=== PATIENT | female | born 1945 | race Caucasian/White ===

== ENCOUNTER → 2017-06-12 11:21 | Outpatient (CLI) | payer MEDICARE, BC, SELFPAY ==
[2017-06-12 12:25] LABS: Absolute Lymphocyte Count 1.29 X10^3/ul (0.83-4.51); Basophil# 0.02 X10^3/uL; Basophil% 0.4 % (0-1); Eosinophil# 0.04 X10^3/uL; Eosinophils% 0.9 % (0-5); Hemoglobin 13.5 g/dl (12.0-15.0); Lymphocyte # 1.29 X10^3/ul (4.0); Lymphocyte % 27.6 % (19-41); Mean Corp Hgb Conc 32.1 g/gl (32-36); Mean Corpuscular Hgb 30.1 pg (27.0-32.0); Mean Corpuscular Volume 93.8 fL (81-99); Mean Platelet Vol. 10.3 fl (6.2-12.0); Monocyte# 0.37 X10^3/uL; Monocyte% 7.9 % (0-10); Neutrophil # 2.96 X10^3/uL (2.7-7.7); Neutrophil % 63.2 % (47-70); Platelet Count 294 K/mm3 (150-450); RBC Distribution Width CV 12.7 % (11.6-14.6); Red Blood Count 4.48 M/mm3 (4.2-5.4); White Blood Count 4.7 K/mm3 (4.4-11.0)
[2017-06-12 12:34] LABS: POSITIVE COUNT NO; POSITIVE DIFFERENTIAL NO; POSITIVE MORPHOLOGY NO
[2017-06-12 13:18] LABS: Anion Gap 7 (5-15); BUN 17 mg/dL (7-18); BUN/Creat Ratio 15.9 RATIO (10-20); Calcium,Total 9.1 mg/dL (8.5-10.1); Chloride 107 mmol/L (98-107); Creatinine, Serum 1.07 mg/dL (0.55-1.02); EST Glomerular Filtration Rate 53 mL/min (>60); Est Glom Filt Rate - Afr Amer 64 mL/min (>60); Glucose 95 mg/dL (74-106); Potassium 4.3 mmol/L (3.5-5.1); Sodium Level 141 mmol/L (136-145)
== END ==
PROVIDERS: Visit Provider Internal Medicine Cardiovascular Disease
DX: I25.10 Atherosclerotic heart disease of native coronary artery without angina pectoris (principal); I10 Essential (primary) hypertension
CPT/HCPCS: 36415; 80048; 84443; 85025

== ENCOUNTER → 2018-06-16 07:54 | Outpatient (CLI) | payer MEDICARE, BC, SELFPAY ==
[2018-06-12 13:01] VITALS: BMI 28.8
[2018-06-16 08:23] LABS: Absolute Lymphocyte Count 1.59 X10^3/ul (0.83-4.51); Absolute Neutrophil Count 1.8 X10^3/uL (2.0-7.7); Basophil# 0.02 X10^3/uL; Basophil% 0.5 % (0-1); Eosinophil# 0.11 X10^3/uL; Eosinophils% 2.8 % (0-5); Hematocrit 41.2 % (37-47); Hemoglobin 13.5 g/dl (12.0-15.0); Lymphocyte # 1.59 X10^3/ul (4.0); Lymphocyte % 40.5 % (19-41); Mean Corp Hgb Conc 32.8 g/gl (32-36); Mean Corpuscular Hgb 30.4 pg (27.0-32.0); Mean Corpuscular Volume 92.8 fL (81-99); Mean Platelet Vol. 9.6 fl (6.2-12.0); Monocyte# 0.41 X10^3/uL; Monocyte% 10.4 % (0-10); Neutrophil % 45.8 % (47-70); Platelet Count 277 K/mm3 (150-450); RBC Distribution Width CV 13.1 % (11.6-14.6); RBC Distribution Width SD 43.9 fl (35.1-43.9); Red Blood Count 4.44 M/mm3 (4.2-5.4); White Blood Count 3.9 K/mm3 (4.4-11.0)
[2018-06-16 08:24] LABS: POSITIVE COUNT NO; POSITIVE DIFFERENTIAL NO; POSITIVE MORPHOLOGY NO
[2018-06-16 09:05] LABS: AST(SGOT) 16 U/L (15-37); Alanine Aminotransfer ALT/SGPT 19 U/L (13-56); Albumin, Serum 3.8 g/dL (3.2-5.0); Alkaline Phosphatase 77 U/L (45-117); Anion Gap 5 (5-15); BUN 17 mg/dL (7-18); BUN/Creat Ratio 15.2 RATIO (10-20); Bilirubin, Direct 0.11 mg/dL (0.00-0.30); Calcium,Total 9.1 mg/dL (8.5-10.1); Chloride 108 mmol/L (98-107); Cholesterol 280 mg/dL (200); Creatinine, Serum 1.12 mg/dL (0.55-1.02); EST Glomerular Filtration Rate 50 mL/min (>60); Est Glom Filt Rate - Afr Amer 61 mL/min (>60); Globulin 3.4 g/dL (2.2-4.2); Glucose 102 mg/dL (74-106); High Density Lipoprotein 53 mg/dL; Potassium 4.3 mmol/L (3.5-5.1); Protein, Total 7.2 g/dL (6.4-8.2); Sodium Level 140 mmol/L (136-145); Triglycerides 222 mg/dL; Very Low Density Lipoprotein 44 mg/dL (5-40)
== END ==
PROVIDERS: Referring Provider Physician Assistant Medical; Visit Provider Physician Assistant Medical
DX: I10 Essential (primary) hypertension (principal); I25.10 Atherosclerotic heart disease of native coronary artery without angina pectoris; R53.83 Other fatigue
CPT/HCPCS: 36415; 80048; 80061; 80076; 85025

== ENCOUNTER → 2018-07-13 | Outpatient (CLI) | payer MEDICARE, BC, SELFPAY ==
[2018-06-12 13:01] VITALS: BMI 28.8
--- NOTE | 2018-07-13 06:47 | ECHOD_ITS ---
Reason For Study: SOB Procedure This was a 2D Doppler, Color Flow transthoracic echocardiogram. Exam performed in department. Left Ventricle Normal LV size. The estimated ejection fraction is 50 %. Stage 1 diastolic dysfunction. Mild segmental systolic dysfunction (see wall motion). Infero-Basal: Hypokinetic. Posterior-Basal: Hypokinetic. Mid-Lateral : Hypokinetic. Lateral-Basal: Hypokinetic. Mid-Posterior: Akinetic. Right Ventricle Normal RV size. Normal systolic function. Atria Normal left atrium. Normal right atrium. Mitral Valve Normal mitral valve. Tricuspid Valve Normal tricuspid valve. Aortic Valve Normal aortic valve. Trisinus/trileaflet aortic valve. Trivial aortic valve insufficiency. Pulmonic Valve Normal pulmonic valve. Great Vessels Normal aortic root. The pulmonary artery is normal size. Normal inferior vena cava. Pericardium/Pleural No pericardial effusion. MMode/2D Measurements & Calculations LVIDd: 5.2 cm IVSd: 1.2 cm Ao root diam: 3.1 cm LVIDs: 3.8 cm LVPWd: 1.1 cm RVDd: 2.8 cm FS: 26.6 % LAV(MOD-bp): 46.0 ml LVAd ap4: 29.4 cm2 SV(MOD-sp4): 35.9 ml LAV(MOD-bp) Indexed: 25.9 ml/m2 EDV(MOD-sp4): 101.7 ml LAV(MOD-sp2): 43.0 ml EDV(sp4-el): 106.1 ml LAV(MOD-sp4): 41.5 ml LVAs ap4: 22.1 cm2 ESV(MOD-sp4): 65.8 ml ESV(sp4-el): 67.2 ml EF(MOD-sp4): 35.3 % EF(sp4-el): 36.7 % SV(sp4-el): 39.0 ml LA A4 area: 14.6 cm2 LA dimension(2D): 3.8 cm RA A4 area: 10.2 cm2 Doppler Measurements & Calculations MV E max sivakumar: 61.0 cm/sec Lat Peak E' Sivakumar: 4.2 cm/sec Med Peak E' Sivakumar: 3.2 cm/sec MV A max sivakumar: 130.1 cm/sec E/E' lat: 14.5 E/E' med: 18.9 MV E/A: 0.47 Ao V2 max: 131.2 cm/sec AI max sivakumar: 385.8 cm/sec LV V1 max: 101.6 cm/sec Ao max P.9 mmHg AI max P.6 mmHg LV V1 max P.1 mmHg AI dec slope: 256.5 cm/sec2 AI P1/2t: 440.5 msec PA V2 max: 109.6 cm/sec Interpretation Summary Normal LV size. The estimated ejection fraction is 50 %. Stage 1 diastolic dysfunction. Trivial aortic valve insufficiency. Mild segmental systolic dysfunction (see wall motion). Ordering Physician: Hannah Disla/Mitch Lebron Referring Physician: Sarah Mathew Performed By: Marcella Garcia RDCS
--- NOTE | 2018-07-13 08:48 | STRESSREP ---
Stress Test Report Exercise myocardial perfusion stress test. 73-year-old lady with a history of shortness of breath. Medications: Amlodipine aspirin. Stress protocol: Resting EKG demonstrates normal sinus rhythm with a rate of 67 bpm normal intervals are noted. Poor R wave progression is noted suggestive of a previous anterior wall myocardial infarction. The patient exercised according to regular Luan protocol for total duration of 3 minutes and 30 seconds. The maximum heart rate attained was 125 bpm which was 86% of maximum predicted heart rate the maximum workload was 5.2 metabolic equivalents. At rest there were no ST or T wave changes noted suggest ischemia peak exercise upsloping ST changes were noted with normally the criteria for ischemia. Resting blood pressures 150/72 with a peak blood pressure 168/74. No clinical angina was noted the patient was noted to be markedly fatigued. Myocardial perfusion protocol. 14.1 mCi of technetium 99m sestamibi was injected at rest. The patient exercised according to regular Luan protocol for 3-1/2 minutes at peak exercise 43.9 mCi of technetium 99m sestamibi was injected stress images were obtained stress and rest images were reconstructed in comparing the short axis vertical long horizontal long axis. Gated images were also obtained. Perfusion SPECT analysis. Review of the images demonstrate normal uptake of tracer noted in the septum and anterior wall there is a definite large defect involving the lateral wall on the stress test images. The resting images demonstrate a similar pattern however in the inferior lateral wall of the appears to be improvement on the resting images suggesting some inferolateral ischemia. This is towards the apex. The mid lateral wall however has a fixed defect suggestive of a previous lateral infarct Gated SPECT analysis: The gated ejection fraction is noted to be 55%. Conclusion: Abnormal exercise myocardial perfusion stress test with the following: Poor exercise capacity. Previous mid lateral infarct. Inferolateral and apical lateral ischemia. Preserved ejection fraction.
== END | disposition home or self-care (01) ==
LOC: CVS 06:46
PROVIDERS: Referring Provider Physician Assistant Medical; Visit Provider Physician Assistant Medical
DX: I25.10 Atherosclerotic heart disease of native coronary artery without angina pectoris (principal); I10 Essential (primary) hypertension; R53.83 Other fatigue; R06.09 Other forms of dyspnea
CPT/HCPCS: 78452; 93017; 93306; A9500; A4216

== ENCOUNTER → 2018-07-14 | Outpatient (CLI) | payer MEDICARE, BC, SELFPAY ==
[2018-06-12 13:01] VITALS: BMI 28.8
--- NOTE | 2018-07-14 09:25 | RAD_ITS ---
STUDY: X-RAY CHEST REASON FOR EXAM: Female, 73 years old. Preop heart catheter TECHNIQUE: PA and lateral views of the chest. COMPARISON: 05/29/2016 FINDINGS: Stable mild elevation right hemidiaphragm. Stable horizontal linear changes right base consistent with scarring. There are areas of hyperinflation.. There is no demonstrated pleural abnormality. There are calcifications of the coronary arteries. There are calcified mediastinal lymph nodes. Normal visualized pulmonary arteries. Normal visualized x-ray aortic arch and descending thoracic aorta. There is demineralization of the osseous structures. Normal visualized ribs, clavicles, and shoulders. There is a stable 1 cm round calcification close to the splenic hilum possibly calcified splenic artery aneurysm. RAD/Chest PA and Lateral IMPRESSION: Scarring in the right base, presumed previous chondromatous exposure, areas of hyperinflation, arteriosclerosis, osteopenia without change. No pulmonary edema, congestive heart failure or confluent pneumonia. 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 This is a stable finding. Electronically Signed: Jessica Francisco MD at 5:49 EDT , Service support ,
[2018-07-14 10:20] LABS: Absolute Lymphocyte Count 1.65 X10^3/ul (0.83-4.51); Absolute Neutrophil Count 2.6 X10^3/uL (2.0-7.7); Basophil# 0.01 X10^3/uL; Basophil% 0.2 % (0-1); Eosinophil# 0.08 X10^3/uL; Eosinophils% 1.7 % (0-5); Hematocrit 40.7 % (37-47); Hemoglobin 13.2 g/dl (12.0-15.0); Lymphocyte # 1.65 X10^3/ul (4.0); Lymphocyte % 34.8 % (19-41); Mean Corp Hgb Conc 32.4 g/gl (32-36); Mean Corpuscular Hgb 29.8 pg (27.0-32.0); Mean Corpuscular Volume 91.9 fL (81-99); Mean Platelet Vol. 10.8 fl (6.2-12.0); Monocyte# 0.44 X10^3/uL; Monocyte% 9.3 % (0-10); Neutrophil # 2.56 X10^3/uL (2.7-7.7); Platelet Count 280 K/mm3 (150-450); RBC Distribution Width CV 12.9 % (11.6-14.6); RBC Distribution Width SD 42.8 fl (35.1-43.9); Red Blood Count 4.43 M/mm3 (4.2-5.4); White Blood Count 4.7 K/mm3 (4.4-11.0)
[2018-07-14 10:25] LABS: POSITIVE COUNT NO; POSITIVE DIFFERENTIAL NO; POSITIVE MORPHOLOGY NO
[2018-07-14 11:13] LABS: Anion Gap 8 (5-15); BUN 18 mg/dL (7-18); BUN/Creat Ratio 17.8 RATIO (10-20); Chloride 109 mmol/L (98-107); Creatinine, Serum 1.01 mg/dL (0.55-1.02); EST Glomerular Filtration Rate 57 mL/min (>60); Est Glom Filt Rate - Afr Amer 69 mL/min (>60); Glucose 99 mg/dL (74-106); Sodium Level 139 mmol/L (136-145)
== END | disposition home or self-care (01) ==
LOC: LAB 09:14
PROVIDERS: Referring Provider Internal Medicine Cardiovascular Disease; Visit Provider Internal Medicine Cardiovascular Disease
DX: I25.10 Atherosclerotic heart disease of native coronary artery without angina pectoris (principal); I11.9 Hypertensive heart disease without heart failure; R94.39 Abnormal result of other cardiovascular function study
CPT/HCPCS: 36415; 71046; 80048; 85025

== ENCOUNTER 2018-07-20 06:47 | Day surgery (SDC) | payer MEDICARE, BC, SELFPAY ==
[2018-06-12 13:01] VITALS: BMI 28.8
[2018-07-17 11:10] VITALS: BMI 28.8
--- NOTE | 2018-07-18 12:43 | PCM.HP.STD ---
Problem List (1) Abnormal nuclear stress test Status: Acute (2) Essential (primary) hypertension Status: Chronic (3) Atherosclerotic heart disease of [place] coronary artery without angina pectoris Status: Chronic Qualifiers: History of Present Illness Date of Admission: 07/20/18 LETITIA LIGHT, is a 73 F who presents today for a heart cath for an abnormal stress test. While in the office a few weeks ago she had complained of increase in fatigue. It is difficult for her to say of this is work. She finds that her legs get fatigued and she needs to stop with activity. She sts that her sister had the same symptoms on needed a stent. She feels that this has worsened since she was here last. She does not have any chest discomfort/heaviness/tightness. She does not have any worsening symptoms of shortness of breath. She does not have any orthopnea. She denies PND. She does not have any symptoms of congestive heart failure. She does not have any palpitations that she is aware of. She does not have any lightheadedness or dizziness. She does not have any near-syncope or syncope. She does not have any lower extremity edema. She does not have any symptoms of claudication. She has a history of mild to moderate coronary artery disease and hypertension. She has been intolerant to statins in the past. Allergies atorvastatin [From Lipitor] Allergy (Verified 06/12/18 13:01) Unknown rosuvastatin [From Crestor] Allergy (Verified 06/12/18 13:01) Unknown Medications amlodipine 5 mg tablet 5 mg PO QDAY #90 tab 06/12/18 [Rx Confirmed 06/12/18] aspirin 81 mg tablet,delayed release 81 mg PO DAILY 06/12/18 [History Confirmed 06/12/18] [facility] Medical History Atherosclerotic heart disease of [place] coronary artery without angina pectoris (Chronic) Left ventricular systolic dysfunction, chronic (Chronic) Hypertension (Chronic) Fatigue (Acute) History of hysterectomy (Chronic) Surgical History removal of renal calculi (Chronic) Family History Father CAD (coronary artery disease) Cancer Mother Myocardial infarction CAD (coronary artery disease) Brother Myocardial infarction CAD (coronary artery disease) Social History Smoking Status: Never smoker alcohol intake: never substance use type: does not use caffeine: No what type of physical activity do you participate in: walking frequency: daily duration: < 15 minutes/day seatbelt use: always do you feel safe at home: Yes ROS Const Const: Negative for fatigue, weakness, fever(s) or headache(s) Eyes Eyes: Negative for blind spots, loss of peripheral vision or transient loss of vision ENT ENT: Negative for headache(s), dizziness, tinnitus or Nosebleed/epistaxis Cardio Chest Pain: No Palpitations: No Edema: None Muscle aches with walking: None Resp Respiratory: Negative for SOB with activity, SOB at rest, SOB orthopnea\SOB lying down or Cough GI GI: Negative nausea, vomiting, heartburn or vomiting blood/hematemesis : Negative for hematuria Musc Musc: Negative for muscle aches/ myalgia Neuro Neuro: Negative for dizziness, lightheadedness, near syncope, syncope, orthostatic symptoms, headache(s) or weakness Jose Hematologic/Lymphatic: Negative for easy bleeding Endo Endo: Negative for fatigue Cardiology Exam Const Appearance: cooperative, no acute distress and well developed Orientation: alert, awake and oriented x3 Head Head: normocephalic and atraumatic Mouth: moist mucous membranes Eyes General: appearance normal, both eyes and all related structures Conjunctivae: conjunctivae normal Pupils: PERRL EOM: EOM intact bilaterally Neck Neck: normal visual inspection, no lymphadenopathy and no JVD Carotids: Negative bruit Neck Mass: Negative Neck mass Chest Chest inspection: normal inspection of the chest and symmetric chest movement Auscultation: Bilateral: Clear to Auscultation Cardio Palpation: normal PMI Rate: regular rate Rhythm: regular rhythm Heart sounds: S1 normal and S2 normal; negative rub, gallop or murmur Murmur: Grade 1/6, soft and mid systolic GI GI: normal to inspection, soft, no hepatosplenomegaly and bowel sounds present; negative tender Neuro General: alert, awake, oriented x3, CN's II-XI intact bilaterally and moves all extremities Extremities Pulses: Normal: Right Posterior Tibial Pulse, Left Posterior Tibial Pulse, Right Radial Pulse, Left Radial Pulse Lower Extremity Edema: None: Bilateral Psych Psychological: normal affect Assessment & Plan 1. Atherosclerosis of [place] coronary artery of [place] heart without angina pectoris I25.10 Stress test demonstrated: Abnormal exercise myocardial perfusion test, Poor exercise capacity. Previous mid lateral infarct.Inferolateral and apical lateral ischemia. Preserved ejection fraction. Will proceed with a diagnostic heart cath. Follow up will be based on findings. 2. Essential hypertension I10 Blood pressure is adequately controlled on current medications. Will not make any adjustments. ] Past Medical History Past Medical History (Chronic Problems): Chronic Problems (Last Updated 07/13/18 @ 14:39 by Nichol Fierro) Essential (primary) hypertension (Chronic) Atherosclerotic heart disease of [place] coronary artery without angina pectoris (Chronic) Medical History: Medical History (Last Updated 07/13/18 @ 14:39 by Nichol Fierro) Essential (primary) hypertension (Chronic) I10 Atherosclerotic heart disease of [place] coronary artery without angina pectoris (Chronic) I25.10 Fatigue R53.83 History of hysterectomy Z90.710 Left ventricular systolic dysfunction, chronic (Inactive) I51.9 Allergies atorvastatin [From Lipitor] Allergy (Verified 07/17/18 11:11) Unknown rosuvastatin [From Crestor] Allergy (Verified 07/17/18 11:11) Unknown Home Medications: Ambulatory Orders Medication Instructions Recorded amlodipine 5 mg tablet 5 mg PO QDAY #90 tab 06/12/18 aspirin 81 mg tablet,delayed 81 mg PO DAILY 06/12/18 release clopidogrel 75 mg tablet 75 mg PO DAILY #30 tab 07/14/18 Surgical History: Surgical History (Last Updated 07/13/18 @ 14:39 by Nichol Fierro) removal of renal calculi History of left heart catheterization Onset Date: 05/31/16 Z98.890 Smoking Status: Never smoker - Physical Exam Weight: 163 lb Body Mass Index (BMI) 28.8 Assessment/Plan All Active Problems (Last Updated 07/13/18 @ 14:39 by Nichol Fierro) Abnormal nuclear stress test (Acute)
--- NOTE | 2018-07-18 12:49 | HP.PCM_ITS ---
Problem List (1) Abnormal nuclear stress test Status: Acute (2) Essential (primary) hypertension Status: Chronic (3) Atherosclerotic heart disease of [place] coronary artery without angina pectoris Status: Chronic Qualifiers: History of Present Illness Date of Admission: 07/20/18 LETITIA LIGHT, is a 73 F who presents today for a heart cath for an abnormal stress test. While in the office a few weeks ago she had complained of increase in fatigue. It is difficult for her to say of this is work. She finds that her legs get fatigued and she needs to stop with activity. She sts that her sister had the same symptoms on needed a stent. She feels that this has worsened since she was here last. She does not have any chest discomfort/heaviness/tightness. She does not have any worsening symptoms of shortness of breath. She does not have any orthopnea. She denies PND. She does not have any symptoms of congestive heart failure. She does not have any palpitations that she is aware of. She does not have any lightheadedness or dizziness. She does not have any near-syncope or syncope. She does not have any lower extremity edema. She does not have any symptoms of claudication. She has a history of mild to moderate coronary artery disease and hypertension. She has been intolerant to statins in the past. Allergies atorvastatin [From Lipitor] Allergy (Verified 06/12/18 13:01) Unknown rosuvastatin [From Crestor] Allergy (Verified 06/12/18 13:01) Unknown Medications amlodipine 5 mg tablet 5 mg PO QDAY #90 tab 06/12/18 [Rx Confirmed 06/12/18] aspirin 81 mg tablet,delayed release 81 mg PO DAILY 06/12/18 [History Confirmed 06/12/18] [facility] Medical History Atherosclerotic heart disease of [place] coronary artery without angina pectoris (Chronic) Left ventricular systolic dysfunction, chronic (Chronic) Hypertension (Chronic) Fatigue (Acute) History of hysterectomy (Chronic) Surgical History removal of renal calculi (Chronic) Family History Father CAD (coronary artery disease) Cancer Mother Myocardial infarction CAD (coronary artery disease) Brother Myocardial infarction CAD (coronary artery disease) Social History Smoking Status: Never smoker alcohol intake: never substance use type: does not use caffeine: No what type of physical activity do you participate in: walking frequency: daily duration: < 15 minutes/day seatbelt use: always do you feel safe at home: Yes ROS Const Const: Negative for fatigue, weakness, fever(s) or headache(s) Eyes Eyes: Negative for blind spots, loss of peripheral vision or transient loss of vision ENT ENT: Negative for headache(s), dizziness, tinnitus or Nosebleed/epistaxis Cardio Chest Pain: No Palpitations: No Edema: None Muscle aches with walking: None Resp Respiratory: Negative for SOB with activity, SOB at rest, SOB orthopnea\SOB lying down or Cough GI GI: Negative nausea, vomiting, heartburn or vomiting blood/hematemesis : Negative for hematuria Musc Musc: Negative for muscle aches/ myalgia Neuro Neuro: Negative for dizziness, lightheadedness, near syncope, syncope, orthostatic symptoms, headache(s) or weakness Jose Hematologic/Lymphatic: Negative for easy bleeding Endo Endo: Negative for fatigue Cardiology Exam Const Appearance: cooperative, no acute distress and well developed Orientation: alert, awake and oriented x3 Head Head: normocephalic and atraumatic Mouth: moist mucous membranes Eyes General: appearance normal, both eyes and all related structures Conjunctivae: conjunctivae normal Pupils: PERRL EOM: EOM intact bilaterally Neck Neck: normal visual inspection, no lymphadenopathy and no JVD Carotids: Negative bruit Neck Mass: Negative Neck mass Chest Chest inspection: normal inspection of the chest and symmetric chest movement Auscultation: Bilateral: Clear to Auscultation Cardio Palpation: normal PMI Rate: regular rate Rhythm: regular rhythm Heart sounds: S1 normal and S2 normal; negative rub, gallop or murmur Murmur: Grade 1/6, soft and mid systolic GI GI: normal to inspection, soft, no hepatosplenomegaly and bowel sounds present; negative tender Neuro General: alert, awake, oriented x3, CN's II-XI intact bilaterally and moves all extremities Extremities Pulses: Normal: Right Posterior Tibial Pulse, Left Posterior Tibial Pulse, Right Radial Pulse, Left Radial Pulse Lower Extremity Edema: None: Bilateral Psych Psychological: normal affect Assessment & Plan 1. Atherosclerosis of [place] coronary artery of [place] heart without angina pectoris I25.10 Stress test demonstrated: Abnormal exercise myocardial perfusion test, Poor exer cise capacity. Previous mid lateral infarct.Inferolateral and apical lateral ischemia. Preserved ejection fraction. Will proceed with a diagnostic heart cath. Follow up will be based on findings. 2. Essential hypertension I10 Blood pressure is adequately controlled on current medications. Will not make any adjustments. ] Past Medical History Past Medical History (Chronic Problems): Chronic Problems (Last Updated 07/13/18 @ 14:39 by Nichol Fierro) Essential (primary) hypertension (Chronic) Atherosclerotic heart disease of [place] coronary artery without angina pectoris (Chronic) Medical History: Medical History (Last Updated 07/13/18 @ 14:39 by Nichol Fierro) Essential (primary) hypertension (Chronic) I10 Atherosclerotic heart disease of [place] coronary artery without angina pectoris (Chronic) I25.10 Fatigue R53.83 History of hysterectomy Z90.710 Left ventricular systolic dysfunction, chronic (Inactive) I51.9 Allergies atorvastatin [From Lipitor] Allergy (Verified 07/17/18 11:11) Unknown rosuvastatin [From Crestor] Allergy (Verified 07/17/18 11:11) Unknown Home Medications: Ambulatory Orders Medication Instructions Recorded amlodipine 5 mg tablet 5 mg PO QDAY #90 tab 06/12/18 aspirin 81 mg tablet,delayed 81 mg PO DAILY 06/12/18 release clopidogrel 75 mg tablet 75 mg PO DAILY #30 tab 07/14/18 Surgical History: Surgical History (Last Updated 07/13/18 @ 14:39 by Nichol Fierro) removal of renal calculi History of left heart catheterization Onset Date: 05/31/16 Z98.890 Smoking Status: Never smoker - Physical Exam Weight: 163 lb Body Mass Index (BMI) 28.8 Assessment/Plan All Active Problems (Last Updated 07/13/18 @ 14:39 by Nichol Fierro) Abnormal nuclear stress test (Acute)
[2018-07-20] VITALS (10 sets, daily range): BP systolic 133–151; BP diastolic 60–72; PULSE 61–67; RESP 16–18; TEMP 36.9–37.1; O2SAT 93–97
--- NOTE | 2018-07-20 08:24 | PCM.HP.BLA ---
Problem List (1) Abnormal nuclear stress test Status: Acute (2) Essential (primary) hypertension Status: Chronic (3) Atherosclerotic heart disease of [place] coronary artery without angina pectoris Status: Chronic Qualifiers: History and Physical Date of Admission: 07/20/18 LETITIA LIGHT, is a 73 F who presents to the office today for a heart cath for an abnormal stress test. She has a history of mild to moderate coronary artery disease and hypertension. Stress test was done on 07/13/2018 for fatigue, this demonstrated: Poor exercise capacity. Previous mid lateral infarct. Inferolateral and apical lateral ischemia. Preserved ejection fraction. She has been intolerant to statins in the past. She does complain of feeling fatigue. It is difficult for her to say of this is work. She finds that her legs get fatigued and she needs to stop with activity. She sts that her sister had the same symptoms on needed a stent. She feels that this has worsened since she was here last. She does not have any chest discomfort/heaviness/tightness. She does not have any worsening symptoms of shortness of breath. She does not have any orthopnea. She denies PND. She does not have any symptoms of congestive heart failure. She does not have any palpitations that she is aware of. She does not have any lightheadedness or dizziness. She does not have any near-syncope or syncope. She does not have any lower extremity edema. She does not have any symptoms of claudication. Intake Vital Signs See nursing notes Intake Is patient in pain?: No Allergies atorvastatin [From Lipitor] Allergy (Verified 06/12/18 13:01) Unknown rosuvastatin [From Crestor] Allergy (Verified 06/12/18 13:01) Unknown Medications amlodipine 5 mg tablet 5 mg PO QDAY #90 tab 06/12/18 [Rx Confirmed 06/12/18] aspirin 81 mg tablet,delayed release 81 mg PO DAILY 06/12/18 [History Confirmed 06/12/18] [facility] Medical History Atherosclerotic heart disease of [place] coronary artery without angina pectoris (Chronic) Left ventricular systolic dysfunction, chronic (Chronic) Hypertension (Chronic) Fatigue (Acute) History of hysterectomy (Chronic) Surgical History removal of renal calculi (Chronic) Family History Father CAD (coronary artery disease) Cancer Mother Myocardial infarction CAD (coronary artery disease) Brother Myocardial infarction CAD (coronary artery disease) Social History Smoking Status: Never smoker alcohol intake: never substance use type: does not use caffeine: No what type of physical activity do you participate in: walking frequency: daily duration: < 15 minutes/day seatbelt use: always do you feel safe at home: Yes ROS Const Const: Negative for fatigue, weakness, fever(s) or headache(s) Eyes Eyes: Negative for blind spots, loss of peripheral vision or transient loss of vision ENT ENT: Negative for headache(s), dizziness, tinnitus or Nosebleed/epistaxis Cardio Chest Pain: No Palpitations: No Edema: None Muscle aches with walking: None Resp Respiratory: Negative for SOB with activity, SOB at rest, SOB orthopnea\SOB lying down or Cough GI GI: Negative nausea, vomiting, heartburn or vomiting blood/hematemesis : Negative for hematuria Musc Musc: Negative for muscle aches/ myalgia Neuro Neuro: Negative for dizziness, lightheadedness, near syncope, syncope, orthostatic symptoms, headache(s) or weakness Jose Hematologic/Lymphatic: Negative for easy bleeding Endo Endo: Negative for fatigue Cardiology Exam Const Appearance: cooperative, no acute distress and well developed Orientation: alert, awake and oriented x3 Head Head: normocephalic and atraumatic Mouth: moist mucous membranes Eyes General: appearance normal, both eyes and all related structures Conjunctivae: conjunctivae normal Pupils: PERRL EOM: EOM intact bilaterally Neck Neck: normal visual inspection, no lymphadenopathy and no JVD Carotids: Negative bruit Neck Mass: Negative Neck mass Chest Chest inspection: normal inspection of the chest and symmetric chest movement Auscultation: Bilateral: Clear to Auscultation Cardio Palpation: normal PMI Rate: regular rate Rhythm: regular rhythm Heart sounds: S1 normal and S2 normal; negative rub, gallop or murmur Murmur: Grade 1/6, soft and mid systolic GI GI: normal to inspection, soft, no hepatosplenomegaly and bowel sounds present; negative tender Neuro General: alert, awake, oriented x3, CN's II-XI intact bilaterally and moves all extremities Extremities Pulses: Normal: Right Posterior Tibial Pulse, Left Posterior Tibial Pulse, Right Radial Pulse, Left Radial Pulse Lower Extremity Edema: None: Bilateral Psych Psychological: normal affect Assessment & Plan 1. Atherosclerosis of [place] coronary artery of [place] heart without angina pectoris I25.10 Plan - RAJENDRA Loera Pt will proceed with heart cath today. She will continue with risk factor management and medical management. 2. Essential hypertension I10 Plan - RAJENDRA Loera Blood pressure is adequately controlled on current medications. Will not make any adjustments.
--- NOTE | 2018-07-20 08:30 | HP.PCM_ITS ---
Problem List (1) Abnormal nuclear stress test Status: Acute (2) Essential (primary) hypertension Status: Chronic (3) Atherosclerotic heart disease of [place] coronary artery without angina pectoris Status: Chronic Qualifiers: History and Physical Date of Admission: 07/20/18 LETITIA LIGHT, is a 73 F who presents to the office today for a heart cath for an abnormal stress test. She has a history of mild to moderate coronary artery disease and hypertension. Stress test was done on 07/13/2018 for fatigue, this demonstrated: Poor exercise capacity. Previous mid lateral infarct. Inferolateral and apical lateral ischemia. Preserved ejection fraction. She has been intolerant to statins in the past. She does complain of feeling fatigue. It is difficult for her to say of this is work. She finds that her legs get fatigued and she needs to stop with activity. She sts that her sister had the same symptoms on needed a stent. She feels that this has worsened since she was here last. She does not have any chest discomfort/heaviness/tightness. She does not have any worsening symptoms of shortness of breath. She does not have any orthopnea. She denies PND. She does not have any symptoms of congestive heart failure. She does not have any palpitations that she is aware of. She does not have any lightheadedness or dizziness. She does not have any near-syncope or syncope. She does not have any lower extremity edema. She does not have any symptoms of claudication. Intake Vital Signs See nursing notes Intake Is patient in pain?: No Allergies atorvastatin [From Lipitor] Allergy (Verified 06/12/18 13:01) Unknown rosuvastatin [From Crestor] Allergy (Verified 06/12/18 13:01) Unknown Medications amlodipine 5 mg tablet 5 mg PO QDAY #90 tab 06/12/18 [Rx Confirmed 06/12/18] aspirin 81 mg tablet,delayed release 81 mg PO DAILY 06/12/18 [History Confirmed 06/12/18] [facility] Medical History Atherosclerotic heart disease of [place] coronary artery without angina pectoris (Chronic) Left ventricular systolic dysfunction, chronic (Chronic) Hypertension (Chronic) Fatigue (Acute) History of hysterectomy (Chronic) Surgical History removal of renal calculi (Chronic) Family History Father CAD (coronary artery disease) Cancer Mother Myocardial infarction CAD (coronary artery disease) Brother Myocardial infarction CAD (coronary artery disease) Social History Smoking Status: Never smoker alcohol intake: never substance use type: does not use caffeine: No what type of physical activity do you participate in: walking frequency: daily duration: < 15 minutes/day seatbelt use: always do you feel safe at home: Yes ROS Const Const: Negative for fatigue, weakness, fever(s) or headache(s) Eyes Eyes: Negative for blind spots, loss of peripheral vision or transient loss of vision ENT ENT: Negative for headache(s), dizziness, tinnitus or Nosebleed/epistaxis Cardio Chest Pain: No Palpitations: No Edema: None Muscle aches with walking: None Resp Respiratory: Negative for SOB with activity, SOB at rest, SOB orthopnea\SOB lying down or Cough GI GI: Negative nausea, vomiting, heartburn or vomiting blood/hematemesis : Negative for hematuria Musc Musc: Negative for muscle aches/ myalgia Neuro Neuro: Negative for dizziness, lightheadedness, near syncope, syncope, orthostatic symptoms, headache(s) or weakness Jose Hematologic/Lymphatic: Negative for easy bleeding Endo Endo: Negative for fatigue Cardiology Exam Const Appearance: cooperative, no acute distress and well developed Orientation: alert, awake and oriented x3 Head Head: normocephalic and atraumatic Mouth: moist mucous membranes Eyes General: appearance normal, both eyes and all related structures Conjunctivae: conjunctivae normal Pupils: PERRL EOM: EOM intact bilaterally Neck Neck: normal visual inspection, no lymphadenopathy and no JVD Carotids: Negative bruit Neck Mass: Negative Neck mass Chest Chest inspection: normal inspection of the chest and symmetric chest movement Auscultation: Bilateral: Clear to Auscultation Cardio Palpation: normal PMI Rate: regular rate Rhythm: regular rhythm Heart sounds: S1 normal and S2 normal; negative rub, gallop or murmur Murmur: Grade 1/6, soft and mid systolic GI GI: normal to inspection, soft, no hepatosplenomegaly and bowel sounds present; negative tender Neuro General: alert, awake, oriented x3, CN's II-XI intact bilaterally and moves all extremities Extremities Pulses: Normal: Right Posterior Tibial Pulse, Left Posterior Tibial Pulse, Right Radial Pulse, Left Radial Pulse Lower Extremity Edema: None: Bilateral Psych Psychological: normal affect Assessment & Plan 1. Atherosclerosis of [place] coronary artery of [place] heart without angina pectoris I25.10 Plan - RAJENDRA Loera Pt will proceed with heart cath today. She will continue with risk factor management and medical management. 2. Essential hypertension I10 Plan - RAJENDRA Loera Blood pressure is adequately controlled on current medications. Will not make any adjustments.
--- NOTE | 2018-07-20 08:49 | CL.D_ITS ---
Patient Name: LETITIA LIGHT Study Date: 07/20/2018 Performing: Mitch Lebron MD Ht: 62.99 inches 160 cm : 1945 Wt: 163.14 lbs 74 kg Age: 73 Gender: female BSA: 1.77 PROCEDURE(S) PERFORMED [id number]/[id number]/LV CLINICAL PROFILE AND INDICATIONS Indications: Suspected CAD Heart Failure: None Stress/Imaging Date: 07/13/2018Stress Test with SPECT MPI: Positive Intermediate Risk CAD Presentations: Symptom unlikely to be ischemic. CONCLUSIONS Mild to moderate coronary artery disease involving the mid to distal circumflex artery. The left ant erior descending artery and right coronary artery do not appear to have any significant stenosis. In comparison to the previous cardiac catheterization from May 2016 the above is essentially unchange d.. RECOMMENDATIONS Medical therapy DESCRIPTION OF PROCEDURE The patient arrived to the procedure lab. The risks and benefits of the procedure as well as a full d escription of our services here and current unavailability of surgical backup were fully explained to the patient and/or their significant other prior to the catheterization. The Timeout was completed, verifying the correct patient and procedure. The patient's procedural site was prepped and draped in the usual fashion. Local anesthetic was given subcutaneously to right groin region with Lidocaine 2%. Using a modified Seldinger technique, arterial access was obtained via the right femoral artery, a 5 Fr sheath was inserted. Left Coronary Artery selective angiography was performed in multiple views u sing a 5 Fr. JL4 catheter. Right Coronary Artery selective angiography was then performed in multiple views using a 5 Fr. 3DRC (Reilly) catheter. Left Ventriculography was performed in DAMON projection using a 5 Fr. Pigtail catheter. LV to AO pullback pressures were then recorded.Contrast was injected through the sheath and the Right Iliac and Femoral artery were assessed for possible rigoberto sure device. CORONARY ANGIOGRAPHY DOMINANCE: Right Dominant LEFT HEART ASSESSMENT Left Ventricular Ejection Fraction: by LV Gram 50 % Inferior Mid Hypokinesis - Mild Depressed Left Ventricular systolic function LEFT MAIN: Angiographically normal LEFT ANTERIOR DESCENDING ARTERY: No significant disease noted CIRCUMFLEX ARTERY: DISTAL CIRC: Diffusely diseased up to 60 % RIGHT CORONARY ARTERY: MID RCA: Mild luminal irregularities less than 30% COMPLICATIONS No Complications PROCEDURE MEDICATIONS Versed 1 mg IV Oxygen: 2 L/min via nasal cannula SUMMARY OF HEMODYNAMIC DATA Time AIR REST ECG 07:24:15 ECG 08:19:48 AO 128/61 (91) SA 08:25:31 LV 137/5, 10 08:32:13 LV 141/13, 17 08:32:21 LV 137/21, 24 08:33:04 LVp 142/28, 37 08:33:07 AOp 138/0 (54) 08:33:12 Signed By Mitch Lebron MD On 07/20/2018 8:48:24 AM Mitch Lebron MD
--- NOTE | 2018-07-20 12:32 | NURSING ---
PT AMBULATED UP TO RR AND THEN IN HALLWAY. NO COMPLICATIONS NOTE. SITE REMAINS SOFT WITH C/D/I.
== END 2018-07-20 12:30 | disposition home or self-care (01) ==
LOC: CLSP 06:48 → PCU 09:02
PROVIDERS: Referring Provider Internal Medicine Cardiovascular Disease; Visit Provider Internal Medicine Cardiovascular Disease
DX: I25.10 Atherosclerotic heart disease of native coronary artery without angina pectoris (principal); R94.39 Abnormal result of other cardiovascular function study; I10 Essential (primary) hypertension; Z79.82 Long term (current) use of aspirin; Z79.899 Other long term (current) drug therapy
CPT/HCPCS: 93458; 99152; 99153; C1760; C1769

== ENCOUNTER → 2019-01-05 11:24 | Outpatient (CLI) | payer MEDICARE, BC, SELFPAY ==
[2018-12-29 12:10] VITALS: BMI 28.0
[2019-01-05 13:33] LABS: AST(SGOT) 13 U/L (15-37); Alanine Aminotransfer ALT/SGPT 16 U/L (13-56); Albumin, Serum 3.8 g/dL (3.2-5.0); Alkaline Phosphatase 84 U/L (45-117); Bilirubin, Direct 0.09 mg/dL (0.00-0.30); Cholesterol 264 mg/dL (200); Globulin 3.7 g/dL (2.2-4.2); High Density Lipoprotein 48 mg/dL; Protein, Total 7.5 g/dL (6.4-8.2); Triglycerides 201 mg/dL; Very Low Density Lipoprotein 40 mg/dL (5-40)
== END ==
PROVIDERS: Referring Provider Internal Medicine Cardiovascular Disease; Visit Provider Internal Medicine Cardiovascular Disease
DX: E78.5 Hyperlipidemia, unspecified (principal)
CPT/HCPCS: 36415; 80061; 80076

== ENCOUNTER → 2019-11-25 13:38 | Outpatient (CLI) | payer MEDICARE, BC, SELFPAY ==
[2019-11-25 13:35] VITALS: BMI 28.0
[2019-11-25 13:40] LABS: Bacteria 0 SEEN /hpf (None Seen); Mucous, Urine 0 SEEN /hpf (<or=2+); Red Blood Cells-Urine 0 SEEN /hpf (0-5)
[2019-11-25 15:15] LABS: Color, Urine Yellow (Yellow); Glucose, Dipstick Normal (Normal); Ketone-Dipstick Negative (Negative); Leukocyte Esterase-Dipstick 25 /ul (Negative); Nitrite-Dipstick Negative (Negative); Occult Blood-Urine Negative /ul (Negative); Protein-Dipstick 30 mg/dl (Negative); Specific Gravity, Urine 1.025 (1.002-1.030); Urine Bilirubin Dipstick Negative (Negative); Urine Clarity Sl. Cloudy (Clear); Urine Urobilinogen Normal (Normal)
[2019-11-25 15:27] LABS: Absolute Lymphocyte Count 1.58 X10^3/uL (0.83-4.51); Basophil# 0.02 X10^3/uL; Basophil% 0.4 % (0-1); Eosinophil# 0.09 X10^3/uL; Eosinophils% 1.8 % (0-5); Hematocrit 44.2 % (37-47); Lymphocyte # 1.58 X10^3/ul (4.0); Lymphocyte % 31.3 % (19-41); Mean Corp Hgb Conc 31.7 g/dL (32-36); Mean Corpuscular Hgb 29.5 pg (27.0-32.0); Mean Corpuscular Volume 93.2 fL (81-99); Mean Platelet Vol. 10.3 fl (6.2-12.0); Monocyte# 0.37 X10^3/uL; Monocyte% 7.3 % (0-10); NRBC Flagged by Analyzer 0 % (0-5); Neutrophil # 2.98 X10^3/uL (2.7-7.7); Platelet Count 302 K/mm3 (150-450); RBC Distribution Width CV 12.5 % (11.6-14.6); RBC Distribution Width SD 43.6 fl (35.1-43.9); Red Blood Count 4.74 M/mm3 (4.2-5.4); White Blood Count 5.1 K/mm3 (4.4-11.0)
[2019-11-25 15:52] LABS: Anion Gap 4 (5-15); BUN 19 mg/dL (7-18); Calcium,Total 9.2 mg/dL (8.5-10.1); Chloride 108 mmol/L (98-107); Cholesterol 319 mg/dL (200); Creatinine, Serum 1.19 mg/dL (0.55-1.02); EST Glomerular Filtration Rate 47 mL/min (>60); Est Glom Filt Rate - Afr Amer 57 mL/min (>60); Glucose 98 mg/dL (74-106); High Density Lipoprotein 53 mg/dL; Potassium 4.5 mmol/L (3.5-5.1); Sodium Level 141 mmol/L (136-145); Triglycerides 251 mg/dL; Very Low Density Lipoprotein 50 mg/dL (5-40)
[2019-11-25 16:08] LABS: Squamous Epithelial Cells - UA 5-10 SEEN /hpf (5-10); White Blood Cells 0-5 SEEN /hpf (0-5)
== END ==
PROVIDERS: PCP Family Medicine; Referring Provider Family Medicine; Visit Provider Family Medicine
DX: I25.10 Atherosclerotic heart disease of native coronary artery without angina pectoris (principal); I10 Essential (primary) hypertension
CPT/HCPCS: 36415; 80048; 80061; 81001; 84443; 85025

== ENCOUNTER → 2021-10-02 | Outpatient (CLI) | payer MEDICARE, BC, SELFPAY ==
[2021-10-02 11:37] LABS: Mucous, Urine 0 SEEN /hpf (<or=2+)
[2021-10-02 12:40] LABS: Absolute Neutrophil Count 2.7 X10^3/uL (2.0-7.7); Basophil# 0.02 X10^3/uL; Basophil% 0.4 % (0-1); Eosinophil# 0.06 X10^3/uL; Eosinophils% 1.3 % (0-5); Hematocrit 40.9 % (37-47); Hemoglobin 13.3 g/dL (12.0-15.0); Lymphocyte % 30.6 % (19-41); Mean Corp Hgb Conc 32.5 g/dL (32-36); Mean Corpuscular Hgb 30.2 pg (27.0-32.0); Mean Corpuscular Volume 92.7 fL (81-99); Mean Platelet Vol. 10.5 fl (6.2-12.0); Monocyte# 0.37 X10^3/uL; Monocyte% 8.1 % (0-10); NRBC Flagged by Analyzer 0 % (0-5); Neutrophil # 2.72 X10^3/uL (2.7-7.7); Neutrophil % 59.4 % (47-70); Platelet Count 291 K/mm3 (150-450); RBC Distribution Width SD 44.4 fl (35.1-43.9); Red Blood Count 4.41 M/mm3 (4.2-5.4); White Blood Count 4.6 K/mm3 (4.4-11.0)
[2021-10-02 12:41] LABS: Color, Urine Yellow (Yellow); Glucose, Dipstick Normal (Normal); Ketone-Dipstick Negative (Negative); Leukocyte Esterase-Dipstick 100 /ul (Negative); Nitrite-Dipstick Negative (Negative); Occult Blood-Urine 10 /ul (Negative); Protein-Dipstick Negative (Negative); Specific Gravity, Urine 1.015 (1.002-1.030); Urine Bilirubin Dipstick Negative (Negative); Urine Clarity Sl. Cloudy (Clear); Urine Urobilinogen Normal (Normal)
[2021-10-02 12:51] LABS: Bacteria 1+ /hpf (None Seen); Red Blood Cells-Urine 0-5 SEEN /hpf (0-5); Squamous Epithelial Cells - UA 5-10 SEEN /hpf (5-10); White Blood Cells 10-25 SEEN /hpf (0-5)
[2021-10-02 13:05] LABS: ALB/GLOB Ratio 1.1 RATIO (0.9-2.4); AST(SGOT) 15 U/L (15-37); Alanine Aminotransfer ALT/SGPT 20 U/L (13-56); Albumin, Serum 3.8 g/dL (3.2-5.0); Alkaline Phosphatase 78 U/L (45-117); Anion Gap 5 (5-15); BUN 19 mg/dL (7-18); BUN/Creat Ratio 17.1 RATIO (10-20); Calcium,Total 9.4 mg/dL (8.5-10.1); Chloride 112 mmol/L (98-107); Cholesterol 285 mg/dL (200); Creatinine, Serum 1.11 mg/dL (0.55-1.02); EST Glomerular Filtration Rate 50 mL/min (>60); Est Glom Filt Rate - Afr Amer 61 mL/min (>60); Globulin 3.6 g/dL (2.2-4.2); Glucose 106 mg/dL (74-106); High Density Lipoprotein 46 mg/dL; Protein, Total 7.4 g/dL (6.4-8.2); Sodium Level 141 mmol/L (136-145); Thyroid Stim Hormone (TSH) 2.65 uIU/mL (0.358-3.74); Triglycerides 243 mg/dL; Very Low Density Lipoprotein 49 mg/dL (5-40)
== END | disposition home or self-care (01) ==
PROVIDERS: PCP Family Medicine; Visit Provider Physician Assistant
DX: I12.9 Hypertensive chronic kidney disease with stage 1 through stage 4 chronic kidney disease, or unspecified chronic kidney disease (principal); E78.5 Hyperlipidemia, unspecified; R53.83 Other fatigue; N18.2 Chronic kidney disease, stage 2 (mild); R30.0 Dysuria
CPT/HCPCS: 36415; 80053; 80061; 81001; 84443; 85025; 87086; 87088

== ENCOUNTER 2022-05-19 15:01 | Inpatient (IN) | payer MEDICARE, SELFPAY ==
[2022-05-19] VITALS (22 sets, daily range): BP systolic 116–168; BP diastolic 55–100; PULSE 80–115; RESP 10–21; TEMP 35.7–36.3; O2SAT 95–100; BMI 35.9; BMI 31.6
--- NOTE | 2022-05-19 15:05 | NURSING ---
1420 STEMI CALLED PRIOR TO ARRIVAL
--- NOTE | 2022-05-19 15:10 | EKG12_ITS ---
Test Reason : STEMI Blood Pressure : / mmHG Vent. Rate : 086 BPM Atrial Rate : 061 BPM P-R Int : 240 ms QRS Dur : 094 ms QT Int : 404 ms P-R-T Axes : 095 -13 105 degrees QTc Int : 483 ms Sinus rhythm with marked sinus arrhythmia with 1st degree A-V block with Premature atrial complexes a nd Premature ventricular complexes or Fusion complexes Acute inferiolateral AK ACUTE AK / STEMI Abnormal ECG Confirmed by SHERI PEÑALOZA, KELSEY ([id number]), health editor RAGHAVENDRA SWANSON ([id number]) on 05/20/2022 12:46:52 PM Referred By: Edilberto Carvalho Confirmed By:KELSEY WADE MD
--- NOTE | 2022-05-19 15:10 | RAD_ITS ---
EXAM: XR CHEST, 1 VIEW CLINICAL INDICATION: chest pain TECHNIQUE: Frontal view of the chest. This report was created using [employer] report generation technology. COMPARISON: XR Chest dated 07/14/2018 FINDINGS: LUNGS AND PLEURAL SPACES: See below. HEART: Normal heart size. MEDIASTINUM: No mediastinal or hilar mass. BONES/JOINTS: No acute abnormality. SOFT TISSUES: Calcified ductus noted again seen. Linear scarring within the right middle lobe. RAD/Chest 1 View (Portable) IMPRESSION: No acute cardiopulmonary abnormality. No interval change. Electronically Signed: Morgan Alonso MD at 15:52 EDT ,
--- NOTE | 2022-05-19 15:12 | EDS_ITS ---
HPI History of Present Illness Chief Complaint: Chest Pain Onset/Context/Timing Onset: Today Activity at onset: sudden Timing: Continuous Worsened By: Nothing Relieved By: Nothing Narrative Narrative: Patient presents with weakness and fatigue that began today around 9 AM. Patient states she got up and felt okay. Patient states that when she got into the shower around 9 AM she started feeling weak and tired. Patient states she also started having some nausea but denies any vomiting. Patient states she was able to eat her breakfast without difficulty. Patient denies any chest pain. Patient denies any shortness of breath. Patient denies any fevers or chills. Family came and called EMS. EMS obtained an EKG which showed ST elevation in the inferior leads as well as V5 and V6. EMS administered 3 more baby aspirin since the patient already took 1 baby aspirin today. EMS also administered 180 mg of Brilinta and 4000 units of heparin. CVD Risk Factors: Negative for Hypertension, Diabetes, Hypercholesterolemia or Smoking PE Risk Factors: Negative for Recent Travel/Surgery, Recent Immobilization, Prior DVT or PE, Cancer or OCP + Smoking + >/=35 PFSH PFSH Medical History Atherosclerotic heart disease of [place] coronary artery without angina pectoris Back problem Essential (primary) hypertension Fatigue history of bone fracture History of kidney stones Hyperlipemia Left ventricular systolic dysfunction, chronic Vision problem Home Medications aspirin 81 mg tablet,delayed release (Adult Low Dose Aspirin) 81 mg PO DAILY #100 tabs 12/23/19 [Rx Last Taken Unknown] ergocalciferol (vitamin D2) 50 mcg (2,000 unit) capsule 50 mcg PO DAILY 10/02/21 [History Last Taken Unknown] escitalopram oxalate 5 mg tablet (Lexapro) 5 mg PO DAILY #30 tabs 10/02/21 [Rx Last Taken Unknown] Allergy/AdvReac Type Severity Reaction Status Date / Time atorvastatin [From Lipitor] Allergy Unknown Verified 10/02/21 10:56 Iodinated Contrast Media Allergy Itching Verified 05/19/22 15:22 [contrast dye - iodinated] rosuvastatin [From Crestor] Allergy Unknown Verified 10/02/21 10:56 antibiotic Allergy Mild up set Uncoded 10/02/21 10:56 stomach Family History Father CAD (coronary artery disease) Cancer Mother Myocardial infarction CAD (coronary artery disease) Brother Myocardial infarction CAD (coronary artery disease) Other Arthritis Heart disease High cholesterol Surgical History History of hysterectomy History of left heart catheterization (07/20/18) History of right breast biopsy Hx of colonoscopy removal of renal calculi Social History Smoking Status: Never smoker alcohol intake: never substance use type: does not use caffeine: No what type of physical activity do you participate in: none frequency: daily duration: < 15 minutes/day seatbelt use: always do you feel safe at home: Yes ROS ROS ED Constitutional Constitutional ED: Denies chills or fever(s) Eyes Eyes: Denies blurry vision or change in vision ENT ENT ED: Denies rhinorrhea or sore throat Cardiovascular Cardiovascular: Denies chest pain or palpitations Respiratory/Chest Respiratory/Chest: Denies cough or dyspnea Gastrointestinal Gastrointestinal: Reports nausea; Denies melena or vomiting Genitourinary Genitourinary ED: Denies dysuria or hematuria Musculoskeletal Musculoskeletal: Denies back pain or neck pain Integumentary Denies abscess or rash Neurologic Neurologic: Reports weakness; Denies headache(s) Allergic/Immunologic Allergic/Immunologic ED: Denies mouth swelling or urticaria EXAM Physical Exam Const Vital Signs: 05/19/22 15:02 05/19/22 15:04 05/19/22 15:15 Temperature 96.3 F L Temperature Source Temporal Pulse Rate 80 Respiratory Rate 14 18 Blood Pressure 121/80 H 121/80 H Blood Pressure Mean 93 Pulse Ox 100 Oxygen Delivery Method Nasal Cannula Nasal Cannula Oxygen Flow Rate (L/min) 2 2 05/19/22 15:23 Temperature 96.5 F L Temperature Source Temporal Pulse Rate 115 H Respiratory Rate 18 Blood Pressure 122/78 H Blood Pressure Mean 92 Pulse Ox 100 Oxygen Delivery Method Nasal Cannula Oxygen Flow Rate (L/min) 2 Positive well nourished, well developed and obese General Appearance ED: well developed and NAD Nutritional Appearance: obese HEENT Reports moist mucous membranes Eyes PERRL and EOMs intact bilaterally General Eye ED: Negative for pale conjunctiva Neck supple and no JVD Resp normal respiratory effort and clear to auscultation bilaterally Cardio regular rate Rhythm: abnormal rhythm irregularly irregular GI normal to inspection, nondistended, normoactive bowel sounds and non-tender Palpation: soft Extremity normal to inspection General Extremety ED: Negative for edema or tenderness General Extremity: Negative for edema Neuro oriented x3, CN's II-XII intact bilaterally and no sensory deficits noted Sensorium / Orientation: alert Motor Exam: strength 5/5 throughout Psych mental status grossly normal Skin no rashes or lesions noted Heart Score History: Highly Suspicious ECG: Significant ST-Depression Age: >/= 65 years Risk Factors: 1 or 2 Risk Factors Score: 7 MDM MDM MDM Narrative Medical decision making narrative: Prehospital STEMI alert was called. EMS administered 3 baby aspirin, 180 mg of Brilinta, and 4000 units of heparin. Case was discussed with Dr. Carvalho from cardiology. He will take the patient to the Transportation Program Director. Case was discussed with Dr. Ybarra, hospitalist, he will admit the patient after the Transportation Program Director. Chest x-ray will be obtained to assess for congestive heart failure, and widened mediastinum. EKG will be obtained to assess for cardiac ischemia and cardiac dysrhythmia. CBC will be obtained to assess for anemia and leukocytosis. Basic metabolic profile will be obtained to assess for renal function and electrolyte abnormality. PT was INR and PTT will be obtained to assess for coagulopathy. High-sensitivity troponin will be obtained to assess for cardiac ischemia. History & Record Review Discussion w/independent historian: EMS personnel and Family Additional record(s) reviewed:: Prior labs Lab Data Attestation: I reviewed the patient's lab results. Lab results narrative: CBC was reviewed and shows a mild leukocytosis of 12.5. Basic metabolic profile was reviewed and shows a BUN of 29 and creatinine of 1.75. These are slightly increased from previous results. Glucose was 207. High-sensitivity troponin was reviewed and was elevated at 500. PT with INR were reviewed and were within normal limits. PTT was elevated at 159.5. This is likely due to the heparin bolus given by EMS. Labs: Laboratory Results - last 24 hr 05/19/22 05/19/22 05/19/22 15:13 15:13 15:13 WBC 12.5 H RBC 4.42 Hgb 13.3 Hct 42.7 MCV 96.6 MCH 30.1 MCHC 31.1 L RDW Std Deviation 46.5 H RDW Coeff of Terrie 12.9 Plt Count 290 MPV 10.6 Immature Gran % (Auto) 0.400 Neut % (Auto) 75.3 H Lymph % (Auto) 18.7 L [place] % (Auto) 4.9 Eos % (Auto) 0.4 Baso % (Auto) 0.3 Absolute Neuts (auto) 9.4 H Absolute Lymphs (auto) 2.34 Nucleated RBC % 0 PT 13.9 INR 1.1 APTT 159.5 H* Sodium 141 Potassium 4.0 Chloride 108 H Carbon Dioxide 22.0 Anion Gap 11 BUN 29 H Creatinine 1.75 H Estim Creat Clear Calc 21.56 Est GFR (MDRD) Af Amer 36 L Est GFR (MDRD) Non-Af 30 L BUN/Creatinine Ratio 16.6 Glucose 207 H Calcium 9.5 Troponin I High Sens 500 H* Radiography Chest X-Ray - ED: 1 View, Read by ED Physician, Read by Radiologist and No Acute Disease Diagnostic Testing: Clinical Impression(s) from Imaging Studies Chest X-Ray 05/19/22 15:10 IMPRESSION: No acute cardiopulmonary abnormality. No interval change. Electronically Signed: Morgan Alonso MD at 15:52 EDT , Portable 1 view chest x-ray was obtained. On my independent interpretation, lung flores are clear. There is normal cardiac silhouette. Bony thorax is normal. There is no acute process noted. Radiologist also interpreted the x- ray and agrees. EKG Initial EKG: Attestation: I personally reviewed and interpreted this EKG as follows: Interpretation: Atrial Fibrillation (86), S-T Elevation (Leads II, III, aVF, V3, V4, V5, and V6) and S-T Depression (Leads I, aVL, V1, and V2) Comments: EKG was obtained. On my interpretation, it shows atrial fibrillation with a rate of 86. QRS interval was normal at 94. QTc interval was 483 ms. [place] was borderline left axis deviation at -13. There is ST elevation in leads II, III, aVF, V3 through V6. There is ST depression in leads I, aVL, V1, and V2. Prior EKG tracings: available for review Prior: Changed (07/13/2018) Management Discussion w/another healthcare provider: Hospitalist (Dr. Ybarra) and Target Protection Specialist (Dr. Carvalho from cardiology) Treatment and Re-Evaluation :: Due to the patient's allergy of contrast dye, patient was given Solu-Cortef and Benadryl. Patient did become nauseated. Patient was given a dose of Zofran for that. Patient was transferred to the Transportation Program Director in stable condition. Critical Care Time Critical Care Time: Yes Critical care time (excluding procedures): 30-74 minutes (36), Including time spent:, Discussing w/Patient &/or Family/[employer], Discussing w/Consultants, Arranging Admission or Transfer and Performing Direct Patient Care at Bedside Discharge Plan Dx/Rx/DC Orders Clinical Impression: ST elevation (STEMI) myocardial infarction, Fatigue Disposition Disposition: Acute Care Hospital [facility] Discharge Date/Time: 05/19/22 15:25
[2022-05-19] MEDS: Hydrocortisone Sod Succinate 100 MG/2 ML Vial IV (15:19)
[2022-05-19] MEDS: DiphenhydrAMINE 50 MG/ML Syringe 25 MG IV (15:19)
[2022-05-19] MEDS: Ondansetron 4 MG/2 ML Vial IV (15:23)
[2022-05-19 15:29] LABS: Absolute Lymphocyte Count 2.34 X10^3/uL (0.83-4.51); Absolute Neutrophil Count 9.4 X10^3/uL (2.0-7.7); Basophil# 0.04 X10^3/uL; Basophil% 0.3 % (0-1); Eosinophil# 0.05 X10^3/uL; Eosinophils% 0.4 % (0-5); Hematocrit 42.7 % (37-47); Hemoglobin 13.3 g/dL (12.0-15.0); Lymphocyte # 2.34 X10^3/ul (0.83-4.51); Lymphocyte % 18.7 % (19-41); Mean Corp Hgb Conc 31.1 g/dL (32-36); Mean Corpuscular Hgb 30.1 pg (27.0-32.0); Mean Corpuscular Volume 96.6 fL (81-99); Mean Platelet Vol. 10.6 fl (6.2-12.0); Monocyte# 0.61 X10^3/uL; Monocyte% 4.9 % (0-10); NRBC Flagged by Analyzer 0 % (0-5); Neutrophil # 9.42 X10^3/uL (2.7-7.7); Neutrophil % 75.3 % (47-70); Platelet Count 290 K/mm3 (150-450); RBC Distribution Width CV 12.9 % (11.6-14.6); RBC Distribution Width SD 46.5 fl (35.1-43.9); Red Blood Count 4.42 M/mm3 (4.2-5.4); White Blood Count 12.5 K/mm3 (4.4-11.0)
[2022-05-19 15:37] LABS: International Normalized Ratio 1.1; Prothrombin Time (Protime)PT. 13.9 SECONDS (11.7-14.9)
[2022-05-19 15:59] LABS: Anion Gap 11 (5-15); BUN 29 mg/dL (7-18); BUN/Creat Ratio 16.6 RATIO (10-20); Calcium,Total 9.5 mg/dL (8.5-10.1); Chloride 108 mmol/L (98-107); Creatinine, Serum 1.75 mg/dL (0.55-1.02); EST Glomerular Filtration Rate 30 mL/min (>60); Est Glom Filt Rate - Afr Amer 36 mL/min (>60); Estimated Creatinine Clearance 21.56 ml/min; Glucose 207 mg/dL (74-106); Sodium Level 141 mmol/L (136-145); Troponin-I HS 500 pg/mL (3.0-54.0)
[2022-05-19 16:04] LABS: Partial Thromboplast Time 159.5 Seconds (24.1-36.2)
--- NOTE | 2022-05-19 16:04 | EKG12_ITS ---
Test Reason : ROUTINE Blood Pressure : / mmHG Vent. Rate : 085 BPM Atrial Rate : 085 BPM P-R Int : 146 ms QRS Dur : 076 ms QT Int : 408 ms P-R-T Axes : 035 -39 114 degrees QTc Int : 485 ms Sinus rhythm with occasional Premature ventricular complexes Left axis deviation Low voltage QRS Inferior infarct , possibly acute Confirmed by SHERI PEÑALOZA, KELSEY ([id number]), dictionary editor RAGHAVENDRA SWANSON ([id number]) on 05/21/2022 8:51:11 AM Referred By: Edilberto Carvalho Confirmed By:KELSEY WADE MD
--- NOTE | 2022-05-19 16:06 | HP.PCM.HOS_ITS ---
HPI - General General Date of Admission: 05/19/22 Date of Service: 05/19/22 Chief Complaint: weakness HPI Narrative LETITIA LIGHT, is a 77 F who presents with weakness. Patient states that she has been weak for several weeks but was more profoundly so today. Patient was seen by family and called EMS. EMS performed EKG that showed ST elevations in inferior leads. STEMI alert was called. Patient received ticagrelor as well as heparin drip and aspirin. Patient denies any chest pain, shortness of breath, nausea, vomiting, diaphoresis. Patient in the emergency room received some nitroglycerin as well as IV fluids. Patient is seen in the [facility] awaiting on cardiology and is currently chest pain-free and feeling okay at this time. Patient has never had any heart problems prior. Patient was taking aspirin but for primary prevention purposes. 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 [facility] Medical History (Updated 05/19/22 @ 16:[address] Kiet Ybarra DO) Atherosclerotic heart disease of [place] coronary artery without angina pectoris Back problem Essential (primary) hypertension Fatigue history of bone fracture History of kidney stones Hyperlipemia Left ventricular systolic dysfunction, chronic Stage 3b chronic kidney disease (CKD) Vision problem Home Medications aspirin 81 mg tablet,delayed release (Adult Low Dose Aspirin) 81 mg PO DAILY #100 tabs 12/23/19 [Rx Last Taken Unknown] ergocalciferol (vitamin D2) 50 mcg (2,000 unit) capsule 50 mcg PO DAILY 10/02/21 [History Last Taken Unknown] escitalopram oxalate 5 mg tablet (Lexapro) 5 mg PO DAILY #30 tabs 10/02/21 [Rx Last Taken Unknown] Allergy/AdvReac Type Severity Reaction Status Date / Time atorvastatin [From Lipitor] Allergy Unknown Verified 10/02/21 10:56 Iodinated Contrast Media Allergy Itching Verified 05/19/22 15:22 [contrast dye - iodinated] rosuvastatin [From Crestor] Allergy Unknown Verified 10/02/21 10:56 antibiotic Allergy Mild up set Uncoded 10/02/21 10:56 stomach Family History Father CAD (coronary artery disease) Cancer Mother Myocardial infarction CAD (coronary artery disease) Brother Myocardial infarction CAD (coronary artery disease) Other Arthritis Heart disease High cholesterol Surgical History History of hysterectomy History of left heart catheterization (07/20/18) History of right breast biopsy Hx of colonoscopy removal of renal calculi Social History (Updated 05/19/22 @ 16:[address] Kiet Ybarra DO) Smoking Status: Never smoker alcohol intake: current alcohol intake frequency: a few times a week substance use type: does not use caffeine: No what type of physical activity do you participate in: none frequency: daily duration: < 15 minutes/day seatbelt use: always do you feel safe at home: Yes ROS ROS Narrative All review of systems were negative except as mentioned above in the history of present illness and the other review of systems. Vital Signs Vital Signs Vital Signs: 05/19/22 15:02 05/19/22 15:04 05/19/22 15:15 Temperature 35.7 C L Temperature Source Temporal Pulse Rate 80 Respiratory Rate 14 18 Blood Pressure 121/80 H 121/80 H Blood Pressure Mean 93 Pulse Ox 100 Oxygen Delivery Method Nasal Cannula Nasal Cannula Oxygen Flow Rate (L/min) 2 2 05/19/22 15:23 Temperature 35.8 C L Temperature Source Temporal Pulse Rate 115 H Respiratory Rate 18 Blood Pressure 122/78 H Blood Pressure Mean 92 Pulse Ox 100 Oxygen Delivery Method Nasal Cannula Oxygen Flow Rate (L/min) 2 Weight Weight: 91.9 kg Body Mass Index (BMI) 35.9 Physical Exam Narrative - Physical Exam General: Alert, Oriented x3, Cooperative. Patient was seen in the [facility]. HEENT: Atraumatic, Normocephalic Oral: Moist Mucosa, No Gingival or Mucosal Lesions/ Ulcerations Neck: Supple, No JVD, Negative Carotid Bruits Lungs: Clear to auscultation, Normal air movement Cardiovascular: Regular rate, Normal S1, Normal S2, No murmurs Abdomen: Bowel Sounds Present, Soft, Non Tender, Non-Distended, No Hepato-sple nomegaly Extremities: No clubbing, No cyanosis, No edema, does have some slight cyanosis to the right great toe. Skin: No rashes, No breakdown Musculoskeletal: No Tenderness to Palpation of Joints or Extremities Neurological: Neuro grossly intact. Moves all extremities spontaneously. Sensation intact. Psych/Mental Status: Normal Affect, Appropriate Results Lab / Micro Data Attestation: I reviewed the patient's lab results. Result Diagrams: 05/19/22 15:13 05/19/22 15:13 Labs: Laboratory Results - last 24 hr 05/19/22 15:13: WBC 12.5 H, RBC 4.42, Hgb 13.3, Hct 42.7, MCV 96.6, MCH 30.1, MCHC 31.1 L, RDW Std Deviation 46.5 H, RDW Coeff of Terrie 12.9, Plt Count 290, MPV 10.6, Immature Gran % (Auto) 0.400, Neut % (Auto) 75.3 H, Lymph % (Auto) 18.7 L, [place] % (Auto) 4.9, Eos % (Auto) 0.4, Baso % (Auto) 0.3, Absolute Neuts (auto) 9.4 H, Absolute Lymphs (auto) 2.34, Nucleated RBC % 0 05/19/22 15:13: PT 13.9, INR 1.1, APTT 159.5 H* 05/19/22 15:13: Sodium 141, Potassium 4.0, Chloride 108 H, Carbon Dioxide 22.0, Anion Gap 11, BUN 29 H, Creatinine 1.75 H, Estim Creat Clear Calc 21.56, Est GFR (MDRD) Af Amer 36 L, Est GFR (MDRD) Non-Af 30 L, BUN/Creatinine Ratio 16.6, Glucose 207 H, Calcium 9.5, Troponin I High Sens 500 H* EKG Initial EKG: Attestation: I personally reviewed and interpreted this EKG as follows: Prior EKG tracings: available for review EKG Rhythm Intrepretation: Sinus Rhythm (ST elevations in the inferior leads with ST depressions in the reciprocal leads.) Radiology Impression Chest X-Ray 05/19/22 15:10 IMPRESSION: No acute cardiopulmonary abnormality. No interval change. Electronically Signed: Morgan Alonso MD at 15:52 EDT , Assessment & Plan Assessment/Plan (1) ST elevation (STEMI) myocardial infarction: PLAN: Patient received ticagrelor as well as a heparin drip. Patient to undergo a cardiac catheterization concurrently. Further definitive treatment and management per cardiology. Check echocardiogram Defer further medications to cardiology who are on consultation. Check lipid panel in the morning. Patient has allergies to statins. Patient was premedicated for the cardiac cath as she has a iodinated contrast dye allergy. Patient will be admitted to the ICU post catheterization. (2) Stage 3b chronic kidney disease (CKD): PLAN: Creatinine is 1.75. Last creatinine was 1.1 from October 02. There may be an elevation due to patient's fatigue and lethargy and not perhaps not eating or drinking much. With her receiving the IV contrast, will administer additional IV fluids. Follow-up labs PLAN: Plan Chronic conditions * Hypertension per history but not any chronic medications.. Monitor after cath see what additional treatments to be necessary. * Depression: Continue with escitalopram VTE prophylaxis: We will add SCDs for now. CODE STATUS: Addressed with the patient. Patient wishes to be full code. Charges/Coding Visit Charges Inpatient E&M: 64359 Init Hosp L3
[2022-05-19] MEDS: EPTIFIBATIDE 75 MG/100 ML VIAL 7.4 MG CONT INF (17:30)
--- NOTE | 2022-05-19 17:36 | CON.PCM.CA_ITS ---
Assessment & Plan Assessment/Plan (1) ST elevation (STEMI) myocardial infarction: PLAN: Patient underwent thrombectomy and drug-eluting stent placement to the RCA. She does have severe diffuse disease in the circumflex that appears anthropologist diana. Angiogram from 2019 was also reviewed and she had severe diffuse disease in the mid and distal OM1 that has progressed to include the proximal part of this vessel also. However this is a chronic finding and I would recommend medical treatment for this. At this time patient will be placed on aspirin, Brilinta. Her blood pressure is on the low side. She can be started on a beta- warren and if her EF is low and VALENTIN inhibitor as tolerated by her blood pressure. Lipitor and Crestor are listed in her allergies. We have discussed this with the patient and if she had significant reaction to these then we can consider a different statin. We will also keep the patient overnight on Integri leydi. Patient does have kidney dysfunction and this will be monitored. We will get a 2D echo to evaluate her LV function. HPI Consult Data Date of Consult: 05/19/22 HPI Narrative Reason for Consultation: STEMI HPI Narrative: LETITIA LIGHT, is a 77 F who presents with generalized weakness and fatigue. Apparently this had been going on for some time but today patient felt particularly worse and paramedics were called. EKG done on site revealed inferior ST elevation PR and a STEMI alert was called. Patient was evaluated and brought emergently to the [facility] and underwent coronary angiography which revealed 100% occlusion of the RCA with significant thrombus burden that was treated with aspiration and mechanical thrombectomy and drug-eluting stent placement. Patient also had back pain which resolved after PCI. Patient overall felt better after PCI. She does have a circumflex that is severely diffusely diseased in the distal portion. This is a chronic finding that has progressed to some extent. During PCI patient did go into pulseless V. tach and received 1 shock that brought her back to sinus rhythm. Patient is being admitted to the CCU for further management of her ST elevation PR. Review of systems: All systems reviewed. All else is negative except that in HPI [facility] Medical History (Updated 05/19/22 @ 16:[address] Kiet Ybarra, DO) Atherosclerotic heart disease of [place] coronary artery without angina pectoris Back problem Essential (primary) hypertension Fatigue history of bone fracture History of kidney stones Hyperlipemia Left ventricular systolic dysfunction, chronic Stage 3b chronic kidney disease (CKD) Vision problem Home Medications aspirin 81 mg tablet,delayed release (Adult Low Dose Aspirin) 81 mg PO DAILY #100 tabs 12/23/19 [Rx Last Taken Unknown] ergocalciferol (vitamin D2) 50 mcg (2,000 unit) capsule 50 mcg PO DAILY 10/02/21 [History Last Taken Unknown] escitalopram oxalate 5 mg tablet (Lexapro) 5 mg PO DAILY #30 tabs 10/02/21 [Rx Last Taken Unknown] Allergy/AdvReac Type Severity Reaction Status Date / Time atorvastatin [From Lipitor] Allergy Unknown Verified 10/02/21 10:56 Iodinated Contrast Media Allergy Itching Verified 05/19/22 15:22 [contrast dye - iodinated] rosuvastatin [From Crestor] Allergy Unknown Verified 10/02/21 10:56 antibiotic Allergy Mild up set Uncoded 10/02/21 10:56 stomach Family History Father CAD (coronary artery disease) Cancer Mother Myocardial infarction CAD (coronary artery disease) Brother Myocardial infarction CAD (coronary artery disease) Other Arthritis Heart disease High cholesterol Surgical History History of hysterectomy History of left heart catheterization (07/20/18) History of right breast biopsy Hx of colonoscopy removal of renal calculi Social History (Updated 05/19/22 @ 16:[address] Kiet Ybarra DO) Smoking Status: Never smoker alcohol intake: current alcohol intake frequency: a few times a week substance use type: does not use caffeine: No what type of physical activity do you participate in: none frequency: daily duration: < 15 minutes/day seatbelt use: always do you feel safe at home: Yes Physical Exam Const alert and oriented x3 Eyes no scleral icterus Resp normal respiratory effort Psych mental status grossly normal Risk Stratification Risk Stratification Applicable: No Charges/Coding Visit Charges Inpatient E&M: 69610 Init Hosp L2 Objective Data Vital Signs: Vital Signs Temp Pulse Resp BP Pulse Ox O2 Del Method O2 Flow Rate 96.5 F L 115 H 18 122/78 H 100 Nasal Cannula 2 05/19/22 15:23 05/19/22 15:23 05/19/22 15:23 05/19/22 15:23 05/19/22 15:23 05/19/22 17:11 05/19/22 15:23 Oxygen Flow Rate (L/min) 2 Oxygen Delivery Method Nasal Cannula Weight: 202 lb 9.677 oz Body Mass Index (BMI) 35.9 Lab / Micro Data Result Diagrams: 05/19/22 15:13 05/19/22 15:13 Labs: Laboratory Results - last 24 hr 05/19/22 15:13: WBC 12.5 H, RBC 4.42, Hgb 13.3, Hct 42.7, MCV 96.6, MCH 30.1, MCHC 31.1 L, RDW Std Deviation 46.5 H, RDW Coeff of Terrie 12.9, Plt Count 290, MPV 10.6, Immature Gran % (Auto) 0.400, Neut % (Auto) 75.3 H, Lymph % (Auto) 18.7 L, [place] % (Auto) 4.9, Eos % (Auto) 0.4, Baso % (Auto) 0.3, Absolute Neuts (auto) 9.4 H, Absolute Lymphs (auto) 2.34, Nucleated RBC % 0 05/19/22 15:13: PT 13.9, INR 1.1, APTT 159.5 H* 05/19/22 15:13: Sodium 141, Potassium 4.0, Chloride 108 H, Carbon Dioxide 22.0, Anion Gap 11, BUN 29 H, Creatinine 1.75 H, Estim Creat Clear Calc 21.56, Est GFR (MDRD) Af Amer 36 L, Est GFR (MDRD) Non-Af 30 L, BUN/Creatinine Ratio 16.6, Glucose 207 H, Calcium 9.5, Troponin I High Sens 500 H* Cardiology Labs/Tests 05/19/22 15:13: WBC 12.5 H, RBC 4.42, Hgb 13.3, Hct 42.7, MCV 96.6, MCH 30.1, MCHC 31.1 L, Plt Count 290, MPV 10.6, Immature Gran % (Auto) 0.400, Neut % (Auto) 75.3 H, Lymph % (Auto) 18.7 L, [place] % (Auto) 4.9, Eos % (Auto) 0.4, Baso % (Auto) 0.3, Absolute Neuts (auto) 9.4 H, Nucleated RBC % 0 05/19/22 15:13: PT 13.9, INR 1.1, APTT 159.5 H* 05/19/22 15:13: Sodium 141, Potassium 4.0, Chloride 108 H, Carbon Dioxide 22.0, Anion Gap 11, BUN 29 H, Creatinine 1.75 H, Est GFR (MDRD) Af Amer 36 L, Est GFR (MDRD) Non-Af 30 L, BUN/Creatinine Ratio 16.6, Glucose 207 H, Calcium 9.5 Rhythm: EKG: ECHO: Stress Test: Cardiac Cath: PCI: CT Surgery: Holter monitor: EPS: PPM: CXR: Chest CT Scan: Radiography Diagnostic Testing: Radiology Impression Chest X-Ray 05/19/22 15:10 IMPRESSION: No acute cardiopulmonary abnormality. No interval change. Electronically Signed: Morgan Alonso MD at 15:52 EDT ,
--- NOTE | 2022-05-19 17:43 | ECHOCS_ITS ---
Reason For Study: s/p DE Procedure This was a 2D Doppler, Color Flow transthoracic echocardiogram. Contrast injection was performed. Exam performed portable in ICU/CCU. Left Ventricle Normal LV size. Moderate segmental systolic dysfunction (see wall motion). The left ventricular ejection fraction is 35 %. Stage 1 diastolic dysfunction. Mid-Inferior: Akinetic. Infero-Basal: Hypokinetic. Inferior [place] : Akinetic. Posterior-Basal: Hypokinetic. Mid-Posterior: Akinetic. Mid- Lateral : Akinetic. The rest of the wall segments are normal. Right Ventricle Normal RV size. Normal systolic function. Atria Normal left atrium. Normal right atrium. Mitral Valve There is mild mitral annular calcification. Mild (1+) eccentric mitral valve insufficiency. Tricuspid Valve Normal tricuspid valve. Mild tricuspid valve insufficiency. Aortic Valve Trisinus/trileaflet aortic valve. Trivial aortic valve insufficiency. Great Vessels Normal aortic root. The pulmonary artery is normal size. Normal inferior vena cava. Pericardium/Pleural No pericardial effusion. Medication Diluted definity 4ml given slow IV push to enhance endocardial definition. MMode/2D Measurements & Calculations LVIDd: 4.8 cm IVSd: 1.3 cm Ao root diam: 2.7 cm LVIDs: 3.4 cm LVPWd: 0.96 cm RVDd: 2.4 cm FS: 28.8 % LAV(MOD-bp): 23.2 ml LVAd ap4: 30.2 cm2 LVAd ap2: 27.6 cm2 LAV(MOD-bp) Indexed: 12.6 ml/m2 LVLd ap4: 6.8 cm LVLd ap2: 6.6 cm LAV(MOD-sp2): 27.5 ml EDV(MOD-sp4): 107.7 ml EDV(MOD-sp2): 94.4 ml LAV(MOD-sp4): 18.3 ml EDV(sp4-el): 113.9 ml EDV(sp2-el): 98.7 ml LVAs ap4: 22.8 cm2 LVAs ap2: 20.3 cm2 LVLs ap4: 6.3 cm LVLs ap2: 5.8 cm ESV(MOD-sp4): 66.9 ml ESV(MOD-sp2): 59.3 ml ESV(sp4-el): 69.8 ml ESV(sp2-el): 60.4 ml EF(MOD-sp4): 37.8 % EF(MOD-sp2): 37.2 % EF(sp4-el): 38.7 % SV(MOD-sp4): 40.7 ml SV(MOD-sp2): 35.1 ml SV(sp4-el): 44.0 ml LA dimension(2D): 3.7 cm LA A4 area: 9.8 cm2 RA A4 area: 8.1 cm2 Time Measurements MV dec time: 0.22 sec Doppler Measurements & Calculations MV E max sivakumar: 83.7 cm/sec Lat Peak E' Sivakumar: 3.5 cm/sec Med Peak E' Sivakumar: 3.3 cm/sec MV A max sivakumar: 119.6 cm/sec E/E' lat: 24.1 E/E' med: 25.3 MV E/A: 0.70 MV V2 max: 141.5 cm/sec MV dec slope: 373.3 cm/sec2 Ao V2 max: 138.1 cm/sec MV max P.0 mmHg Ao max P.6 mmHg MV V2 mean: 79.6 cm/sec Ao V2 mean: 98.8 cm/sec MV mean P.9 mmHg Ao mean P.3 mmHg MV V2 VTI: 30.9 cm Ao V2 VTI: 24.1 cm AI max sivakumar: 321.2 cm/sec LV V1 max: 83.0 cm/sec PA V2 max: 85.3 cm/sec AI max P.3 mmHg LV V1 max P.8 mmHg AI dec slope: 172.5 cm/sec2 AI P1/2t: 545.3 msec TR max sivakumar: 209.2 cm/sec TR max P.5 mmHg ECHO/Echo Complete W/ Contrast Interpretation Summary Normal LV size. Moderate segmental systolic dysfunction (see wall motion). The left ventricular ejection fraction is 35 %. Stage 1 diastolic dysfunction. Contrast injection was performed. Ordering Physician: Liliana Carvalho Referring Physician: Carlos Lawrence Performed By: Venita Culver MIRCS, RVT
--- NOTE | 2022-05-19 18:06 | CL.I_ITS ---
Patient Name: LETITIA LIGHT Study Date: 05/19/2022 Performing: Liliana Carvalho MD Ht: 63 inches 160.02 cm : 1945 Wt: 202.9 lbs 91.9 kg Age: 77 Gender: female BSA: 1.94 PROCEDURE(S) PERFORMED DC02-(17589)LHC/COR IC17-(91130)CORONARY MECHANICAL THROMBECTOMY (ANGIOJET,PENUMBRA) IC16-(04567/C9606)AMI, ZAK OR PTCA, ARTERY/GRAFT, SINGLE VESSEL CLINICAL PROFILE AND CO-MORBIDITIES Indications: ACS <= 24 hrs Heart Failure: None Stress/Imaging Stress/Image Study Performed: No CAD Presentations: STEMI. Symptom onset Date/Time: 05/20/22 Time Not Available CONCLUSIONS CAD as described. Successful thrombectomy and ZAK to RCA. No significant RECOMMENDATIONS DESCRIPTION OF PROCEDURE The patient arrived to the procedure lab. The risks and benefits of the procedure as well as a full description of our services here and lack of surgical backup were fully explained to the patient and/or their significant other prior to the catheterization. The Timeout was completed, verifying the correct patient and procedure. The patient's procedural site was prepped and draped in the usual fashion. Local anesthetic was given subcutaneously to right radial region with Lidocaine 2%. Using a modified Seldinger technique, arterial access was obtained via the right radial artery, a 6Fr sheath was inserted.. LV to AO pullback pressures were then recorded. Right Coronary Artery selective angiography was then performed in multiple views using a 5 Fr. JR 4 catheter. Left Coronary Artery selective angiography was performed in multiple views using a 5 Fr. JL3.5 catheter. Right Coronary Artery selective angiography was then performed in multiple views using a 5 Fr. JR 4 catheterThe images were reviewed and options discussed. A decision was then made to proceed with an Intervention, IVUS or other adjunct procedure. JR4 Guide catheter was inserted and engaged into the RCA. BMW Alden Guide wire was advanced to the RCA. Priority One inserted Pass # 1 Priority One Removed Emerge 2.00 x 12 Balloon catheter was inserted. Balloon catheter was advanced across lesion in the right coronary, mid. PTCA balloon inflated at 10 atms for 13 secs. PTCA balloon inflated at 10 atms for 12 secs. Angiogram performed post balloon dilatation. Emerge 3.50 x 20 Balloon catheter was inserted. Balloon catheter was advanced across lesion in the right coronary, mid. PTCA balloon inflated at 6 atms for 8 secs. PTCA balloon inflated at 6 atms for 10 secs. PTCA balloon inflated at 6 atms for 8 secs. Resolute [place] 4.0 x 38 Drug Eluting stent was inserted. Drug Eluting stent was advanced across the lesion in the right coronary, mid. Resolute [place] 3.5 x 22 Drug Eluting stent was inserted. Drug Eluting stent was advanced across the lesion in the right coronary, mid. Angiogram performed post stent deployment. The arterial sheath was pulled and a TR Band was applied for hemostasis CORONARY ANGIOGRAPHY DOMINANCE: Right Dominant LEFT HEART ASSESSMENT LEFT MAIN: Mild luminal irregularities LEFT ANTERIOR DESCENDING ARTERY: Mild luminal irregularities CIRCUMFLEX ARTERY: Severe diffuse disease of the OM1 and distal LCX MID CIRC: 70 % Stenosis RIGHT CORONARY ARTERY: MID RCA: 100 % Stenosis VALVE FINDINGS: No Aortic Valve Stenosis INTERVENTION INFORMATION LESION SITE: RCA (Mid) Lesion Complexity: High/C Pre Stenosis: 100 % PROCEDURE: Thrombectomy (aspiration and mechanical), Drug Eluting Stent with pre dilatation. Preprocedure GET flow is 0, post procedure GET flow is 2. There is thrombus present.It is not a [employer] or bifurcation lesion. There was slow flow after stent deployment that improved with integrillin, verapamil and NTG. Post Stenosis: 0 % Lesion Devices: Richards .014 190cm BMW Alden Straight Cordis 6 Fr JR4 100cm Guide Catheter Tyson Sci EMERGE MR 2.00x12 BALLOON Terumo Priority One Aspiration Catheter Penumbra Penumbra engine canister Penumbra Indigo Penumbra CAT Rx 140cm large lumen Tyson Sci EMERGE MR 3.50x20 BALLO[place] Medtronic Resolute [place] RX ZAK 4.0x38 Medtronic Resolute [place] RX ZAK 3.5x22 COMPLICATIONS No Complications PROCEDURE MEDICATIONS Oxygen: 2 L/min via nasal cannula Heparin given IA 05/19/2022 15:56:40 Nitro 100 mcg IC 05/19/2022 16:38:00 Neosynephrine 0.2 mg IV 05/19/2022 16:41:08 Nitro 100 mcg IC 05/19/2022 16:49:45 Verapamil 2.5mg, Ntg 100mcgs, 3000 units of Heparin given IA 05/19/2022 15:56:40 IV Bolus: .9 NaCl 750 ml total 05/19/2022 16:37:54 SUMMARY OF HEMODYNAMIC DATA Time AIR REST ECG 15:35:40 AO 112/94 (105) SA 15:57:21 LV 126/6, 33 16:06:27 LV 138/-8, 13 16:06:33 LVp 131/-1, 19 16:06:40 AOp 127/69 (89) 16:06:45 Signed By Liliana Carvalho MD On 05/19/2022 18:04:35 Liliana Carvalho MD
[2022-05-19 18:10] LABS: Bedside Glucose 102 mg/dL (74-106)
[2022-05-19 18:17] LABS: Absolute Lymphocyte Count 0.82 X10^3/uL (0.83-4.51); Absolute Neutrophil Count 11.2 X10^3/uL (2.0-7.7); Basophil# 0.03 X10^3/uL; Basophil% 0.2 % (0-1); Eosinophil# 0.01 X10^3/uL; Eosinophils% 0.1 % (0-5); Hematocrit 38.5 % (37-47); Hemoglobin 12.2 g/dL (12.0-15.0); Lymphocyte # 0.82 X10^3/ul (0.83-4.51); Lymphocyte % 6.5 % (19-41); Mean Corp Hgb Conc 31.7 g/dL (32-36); Mean Corpuscular Hgb 30.4 pg (27.0-32.0); Mean Platelet Vol. 10.4 fl (6.2-12.0); Monocyte# 0.48 X10^3/uL; Monocyte% 3.8 % (0-10); NRBC Flagged by Analyzer 0 % (0-5); Neutrophil # 11.22 X10^3/uL (2.7-7.7); Neutrophil % 88.8 % (47-70); Platelet Count 238 K/mm3 (150-450); RBC Distribution Width CV 12.8 % (11.6-14.6); RBC Distribution Width SD 45.8 fl (35.1-43.9); Red Blood Count 4.01 M/mm3 (4.2-5.4); White Blood Count 12.6 K/mm3 (4.4-11.0)
[2022-05-19 18:25] LABS: International Normalized Ratio 1.2; Prothrombin Time (Protime)PT. 14.7 SECONDS (11.7-14.9)
[2022-05-19 18:28] LABS: Anion Gap 9 (5-15); BUN 28 mg/dL (7-18); Calcium,Total 8.3 mg/dL (8.5-10.1); Chloride 110 mmol/L (98-107); EST Glomerular Filtration Rate 39 mL/min (>60); Est Glom Filt Rate - Afr Amer 47 mL/min (>60); Estimated Creatinine Clearance 26.95 ml/min; Glucose 121 mg/dL (74-106); Potassium 4.1 mmol/L (3.5-5.1); Sodium Level 141 mmol/L (136-145)
[2022-05-19 18:32] LABS: Partial Thromboplast Time 185.6 Seconds (24.1-36.2)
[2022-05-19] MEDS: 0.9% Normal Saline 1,000 ML 100 ML IV (20:32)
[2022-05-19 21:24] LABS: Hematocrit 37.2 % (37-47); Mean Corp Hgb Conc 32.3 g/dL (32-36); Mean Corpuscular Hgb 30.3 pg (27.0-32.0); Mean Corpuscular Volume 93.9 fL (81-99); Mean Platelet Vol. 10.4 fl (6.2-12.0); Platelet Count 225 K/mm3 (150-450); RBC Distribution Width SD 44.7 fl (35.1-43.9); Red Blood Count 3.96 M/mm3 (4.2-5.4); White Blood Count 8.7 K/mm3 (4.4-11.0)
[2022-05-19] MEDS: TICAGRELOR 90 MG TABLET PO (21:55)
[2022-05-19 21:56] LABS: Bedside Glucose 120 mg/dL (74-106)
[2022-05-20] VITALS (17 sets, daily range): BP systolic 87–122; BP diastolic 48–72; PULSE 82–99; RESP 12–18; TEMP 36.2–36.7; O2SAT 91–97; BMI 31.7
[2022-05-20] MEDS: EPTIFIBATIDE 75 MG/100 ML VIAL 7.4 MG CONT INF (04:25)
[2022-05-20 05:17] LABS: Absolute Lymphocyte Count 0.98 X10^3/uL (0.83-4.51); Basophil# 0.01 X10^3/uL; Basophil% 0.2 % (0-1); Hematocrit 34.9 % (37-47); Hemoglobin 11.1 g/dL (12.0-15.0); Lymphocyte # 0.98 X10^3/ul (0.83-4.51); Lymphocyte % 15.1 % (19-41); Mean Corp Hgb Conc 31.8 g/dL (32-36); Mean Corpuscular Volume 94.3 fL (81-99); Mean Platelet Vol. 10.2 fl (6.2-12.0); Monocyte% 7.7 % (0-10); NRBC Flagged by Analyzer 0 % (0-5); Neutrophil # 4.99 X10^3/uL (2.7-7.7); Neutrophil % 76.5 % (47-70); Platelet Count 208 K/mm3 (150-450); RBC Distribution Width CV 13.2 % (11.6-14.6); RBC Distribution Width SD 45.2 fl (35.1-43.9); White Blood Count 6.5 K/mm3 (4.4-11.0)
[2022-05-20 05:35] LABS: ALB/GLOB Ratio 1.1 RATIO (0.9-2.4); AST(SGOT) 518 U/L (15-37); Alanine Aminotransfer ALT/SGPT 111 U/L (13-56); Albumin, Serum 3.1 g/dL (3.2-5.0); Alkaline Phosphatase 53 U/L (45-117); Anion Gap 8 (5-15); BUN 26 mg/dL (7-18); BUN/Creat Ratio 19.8 RATIO (10-20); Calcium,Total 8.4 mg/dL (8.5-10.1); Chloride 110 mmol/L (98-107); Cholesterol 213 mg/dL (200); Creatinine, Serum 1.31 mg/dL (0.55-1.02); EST Glomerular Filtration Rate 42 mL/min (>60); Est Glom Filt Rate - Afr Amer 50 mL/min (>60); Estimated Creatinine Clearance 27.54 ml/min; Globulin 2.9 g/dL (2.2-4.2); Glucose 113 mg/dL (74-106); High Density Lipoprotein 39 mg/dL; Potassium 4.1 mmol/L (3.5-5.1); Sodium Level 140 mmol/L (136-145); Triglycerides 219 mg/dL; Very Low Density Lipoprotein 44 mg/dL (5-40)
--- NOTE | 2022-05-20 06:45 | PN.CARD_ITS ---
Subjective Subjective Patient seen and evaluated Objective Data Vital Signs: Vital Signs Temp Pulse Resp BP Pulse Ox O2 Del Method O2 Flow Rate 97.1 F L 82 18 87/55 L 96 Room Air 2 05/20/22 04:00 05/20/22 06:00 05/20/22 06:00 05/20/22 06:00 05/20/22 06:41 05/20/22 06:41 05/19/22 15:23 Oxygen Flow Rate (L/min) 2 Oxygen Delivery Method Room Air Weight: 179 lb 3.773 oz Body Mass Index (BMI) 31.7 Intake & Output: Intake and Output for Last 24 Hours 05/18/22 05/19/22 05/20/22 23:59 23:59 23:59 Intake Total 1124.8 / 1124.8 672.65 / 672.65 Output Total 100 / 100 125 / 125 Balance 1024.8 / 1024.8 547.65 / 547.65 Lab / Micro Data Result Diagrams: 05/20/22 05:05 05/20/22 05:05 Labs: Laboratory Results - last 24 hr 05/19/22 15:13: WBC 12.5 H, RBC 4.42, Hgb 13.3, Hct 42.7, MCV 96.6, MCH 30.1, MCHC 31.1 L, RDW Std Deviation 46.5 H, RDW Coeff of Terrie 12.9, Plt Count 290, MPV 10.6, Immature Gran % (Auto) 0.400, Neut % (Auto) 75.3 H, Lymph % (Auto) 18.7 L, Gladwin % (Auto) 4.9, Eos % (Auto) 0.4, Baso % (Auto) 0.3, Absolute Neuts (auto) 9.4 H, Absolute Lymphs (auto) 2.34, Nucleated RBC % 0 05/19/22 15:13: PT 13.9, INR 1.1, APTT 159.5 H* 05/19/22 15:13: Sodium 141, Potassium 4.0, Chloride 108 H, Carbon Dioxide 22.0, Anion Gap 11, BUN 29 H, Creatinine 1.75 H, Estim Creat Clear Calc 21.56, Est GFR (MDRD) Af Amer 36 L, Est GFR (MDRD) Non-Af 30 L, BUN/Creatinine Ratio 16.6, Glucose 207 H, Calcium 9.5, Troponin I High Sens 500 H* 05/19/22 17:43: WBC 12.6 H, RBC 4.01 L, Hgb 12.2, Hct 38.5, MCV 96.0, MCH 30.4, MCHC 31.7 L, RDW Std Deviation 45.8 H, RDW Coeff of Terrie 12.8, Plt Count 238, MPV 10.4, Immature Gran % (Auto) 0.600, Neut % (Auto) 88.8 H, Lymph % (Auto) 6.5 L, Gladwin % (Auto) 3.8, Eos % (Auto) 0.1, Baso % (Auto) 0.2, Absolute Neuts (auto) 11.2 H, Absolute Lymphs (auto) 0.82 L, Nucleated RBC % 0 05/19/22 17:43: PT 14.7, INR 1.2, APTT 185.6 H* 05/19/22 17:43: Sodium 141, Potassium 4.1, Chloride 110 H, Carbon Dioxide 22.0, Anion Gap 9, BUN 28 H, Creatinine 1.40 H, Estim Creat Clear Calc 26.95, Est GFR (MDRD) Af Amer 47 L, Est GFR (MDRD) Non-Af 39 L, BUN/Creatinine Ratio 20.0, Glucose 121 H, Calcium 8.3 L 05/19/22 17:48: POC Glucose 102 05/19/22 21:05: WBC 8.7, RBC 3.96 L, Hgb 12.0, Hct 37.2, MCV 93.9, MCH 30.3, MCHC 32.3, RDW Std Deviation 44.7 H, RDW Coeff of Terrie 13.0, Plt Count 225, MPV 10.4 05/19/22 21:30: POC Glucose 120 H 05/20/22 05:05: WBC 6.5, RBC 3.70 L, Hgb 11.1 L, Hct 34.9 L, MCV 94.3, MCH 30.0, MCHC 31.8 L, RDW Std Deviation 45.2 H, RDW Coeff of Terrie 13.2, Plt Count 208, MPV 10.2, Immature Gran % (Auto) 0.500, Neut % (Auto) 76.5 H, Lymph % (Auto) 15.1 L, Gladwin % (Auto) 7.7, Eos % (Auto) 0.0, Baso % (Auto) 0.2, Absolute Neuts (auto) 5.0, Absolute Lymphs (auto) 0.98, Nucleated RBC % 0 05/20/22 05:05: Sodium 140, Potassium 4.1, Chloride 110 H, Carbon Dioxide 22.0, Anion Gap 8, BUN 26 H, Creatinine 1.31 H, Estim Creat Clear Calc 27.54, Est GFR (MDRD) Af Amer 50 L, Est GFR (MDRD) Non-Af 42 L, BUN/Creatinine Ratio 19.8, G lucose 113 H, Calcium 8.4 L, Total Bilirubin 0.40, AST 518 H, ALT 111 H, Alkaline Phosphatase 53, Total Protein 6.0 L, Albumin 3.1 L, Globulin 2.9, Albumin/Globulin Ratio 1.1, Triglycerides 219 H, Cholesterol 213 H, LDL Choleste rol 130, VLDL Cholesterol 44 H, HDL Cholesterol 39 L Cardiology Labs/Tests 05/19/22 15:13: WBC 12.5 H, RBC 4.42, Hgb 13.3, Hct 42.7, MCV 96.6, MCH 30.1, MCHC 31.1 L, Plt Count 290, MPV 10.6, Immature Gran % (Auto) 0.400, Neut % (Auto) 75.3 H, Lymph % (Auto) 18.7 L, Gladwin % (Auto) 4.9, Eos % (Auto) 0.4, Baso % (Auto) 0.3, Absolute Neuts (auto) 9.4 H, Nucleated RBC % 0 05/19/22 15:13: PT 13.9, INR 1.1, APTT 159.5 H* 05/19/22 15:13: Sodium 141, Potassium 4.0, Chloride 108 H, Carbon Dioxide 22.0, Anion Gap 11, BUN 29 H, Creatinine 1.75 H, Est GFR (MDRD) Af Amer 36 L, Est GFR (MDRD) Non-Af 30 L, BUN/Creatinine Ratio 16.6, Glucose 207 H, Calcium 9.5 05/19/22 17:43: WBC 12.6 H, RBC 4.01 L, Hgb 12.2, Hct 38.5, MCV 96.0, MCH 30.4, MCHC 31.7 L, Plt Count 238, MPV 10.4, Immature Gran % (Auto) 0.600, Neut % (Auto) 88.8 H, Lymph % (Auto) 6.5 L, Gladwin % (Auto) 3.8, Eos % (Auto) 0.1, Baso % (Auto) 0.2, Absolute Neuts (auto) 11.2 H, Nucleated RBC % 0 05/19/22 17:43: PT 14.7, INR 1.2, APTT 185.6 H* 05/19/22 17:43: Sodium 141, Potassium 4.1, Chloride 110 H, Carbon Dioxide 22.0, Anion Gap 9, BUN 28 H, Creatinine 1.40 H, Est GFR (MDRD) Af Amer 47 L, Est GFR (MDRD) Non-Af 39 L, BUN/Creatinine Ratio 20.0, Glucose 121 H, Calcium 8.3 L 05/19/22 21:05: WBC 8.7, RBC 3.96 L, Hgb 12.0, Hct 37.2, MCV 93.9, MCH 30.3, MCHC 32.3, Plt Count 225, MPV 10.4 05/20/22 05:05: WBC 6.5, RBC 3.70 L, Hgb 11.1 L, Hct 34.9 L, MCV 94.3, MCH 30.0, MCHC 31.8 L, Plt Count 208, MPV 10.2, Immature Gran % (Auto) 0.500, Neut % (Auto) 76.5 H, Lymph % (Auto) 15.1 L, Gladwin % (Auto) 7.7, Eos % (Auto) 0.0, Baso % (Auto) 0.2, Absolute Neuts (auto) 5.0, Nucleated RBC % 0 05/20/22 05:05: Sodium 140, Potassium 4.1, Chloride 110 H, Carbon Dioxide 22.0, Anion Gap 8, BUN 26 H, Creatinine 1.31 H, Est GFR (MDRD) Af Amer 50 L, Est GFR (MDRD) Non-Af 42 L, BUN/Creatinine Ratio 19.8, Glucose 113 H, Calcium 8.4 L, Total Bilirubin 0.40, Triglycerides 219 H, Cholesterol 213 H, LDL Cholesterol 130, VLDL Cholesterol 44 H, HDL Cholesterol 39 L Rhythm: EKG: ECHO: Stress Test: Cardiac Cath: PCI: CT Surgery: Holter monitor: EPS: PPM: CXR: Chest CT Scan: Radiography Diagnostic Testing: Radiology Impression Chest X-Ray 05/19/22 15:10 IMPRESSION: No acute cardiopulmonary abnormality. No interval change. Electronically Signed: Morgan Alonso MD at 15:52 EDT Reading Location ID and State: [facility] / [place] Tel , Service support , Physical Exam Const alert, oriented x3 and no apparent distress General Appearance: cooperative HEENT hearing grossly normal bilaterally Head and Scalp: atraumatic Eyes EOMs intact bilaterally Neck General: normal visual inspection Chest inspection of chest normal and palpation of chest normal Resp normal respiratory effort Auscultation: clear to auscultation bilaterally Cardio regular rate, regular rhythm, S1 normal heart sound and S2 normal heart sound Jugular Venous Distention: JVD GI normal to inspection, nondistended, normoactive bowel sounds Extremity normal capillary refill and no pedal edema Peripheral Pulses: Yes pulses 2+ throughout and femoral pulses present Skin no rashes or lesions noted Neuro oriented x3 and CN's II-XII intact bilaterally Psych Appearance: grossly normal and appropriate Assessment & Plan Assessment/Plan (1) ST elevation (STEMI) myocardial infarction: PLAN: Patient with a history of ST elevation myocardial infarction status post PCI and stenting of the right coronary artery. * Plan to be to continue guideline directed medical care with statins and aspirin and antiplatelet agents. * Will obtain echocardiogram to assess ventricular function * Norton beta-warren and VALENTIN inhibitor as tolerated (2) Essential (primary) hypertension: PLAN: Patient appears to have mildly reduced blood pressure at this time. We will continue to monitor and adjust medications as appropriate (3) Hyperlipemia: PLAN: We will institute high intensity statin. She has previously not tolerated Lipitor and Crestor * Will attempt pravastatin (4) NSVT (nonsustained ventricular tachycardia): PLAN: Patient had some runs of nonsustained VT. We will obtain potassium and magnesium levels and correct as appropriate. We will try and institute low-dose beta-warren. Thank you for allowing me to participate in the care of your patient. Please don't hesitate to call if any issues arise.
[2022-05-20 06:48] LABS: Magnesium 2.1 mg/dL (1.6-2.6)
[2022-05-20 06:50] LABS: Bedside Glucose 103 mg/dL (74-106)
--- NOTE | 2022-05-20 07:40 | PCM.PN.HOSP ---
Reason for Visit Reason for Visit: Diagnoses Hyperlipidemia, unspecified (05/19/22) Essential (primary) hypertension (05/19/22) ST elevation (STEMI) myocardial infarction of unspecified site (05/19/22) Other ventricular tachycardia (05/19/22) Chronic kidney disease, stage 3b (05/19/22) Subjective Subjective Patient is a 77-year-old lady who was brought with profound weakness. EKG demonstrated ST segment elevation NM involving the inferior wall. Underwent emergency left heart catheterization with stent placement to RCA lesion Objective Data Objective Data Vital Signs: Vital Signs Temp Pulse Resp BP Pulse Ox O2 Del Method O2 Flow Rate 97.1 F L 87 13 94/50 L 94 Room Air 2 05/20/22 04:00 05/20/22 07:00 05/20/22 07:00 05/20/22 07:00 05/20/22 07:00 05/20/22 07:00 05/19/22 15:23 Oxygen Flow Rate (L/min) 2 Oxygen Delivery Method Room Air Weight: 81.3 kg Body Mass Index (BMI) 31.7 Intake & Output: Intake and Output for Last 24 Hours 05/18/22 05/19/22 05/20/22 23:59 23:59 23:59 Intake Total 1124.8 / 1124.8 691.77 / 691.77 Output Total 100 / 100 125 / 125 Balance 1024.8 / 1024.8 566.77 / 566.77 Lab / Micro Data Result Diagrams: 05/20/22 05:05 05/20/22 05:05 Labs: Laboratory Results - last 24 hr 05/19/22 15:13: WBC 12.5 H, RBC 4.42, Hgb 13.3, Hct 42.7, MCV 96.6, MCH 30.1, MCHC 31.1 L, RDW Std Deviation 46.5 H, RDW Coeff of Terrie 12.9, Plt Count 290, MPV 10.6, Immature Gran % (Auto) 0.400, Neut % (Auto) 75.3 H, Lymph % (Auto) 18.7 L, Mcdowell % (Auto) 4.9, Eos % (Auto) 0.4, Baso % (Auto) 0.3, Absolute Neuts (auto) 9.4 H, Absolute Lymphs (auto) 2.34, Nucleated RBC % 0 05/19/22 15:13: PT 13.9, INR 1.1, APTT 159.5 H* 05/19/22 15:13: Sodium 141, Potassium 4.0, Chloride 108 H, Carbon Dioxide 22.0, Anion Gap 11, BUN 29 H, Creatinine 1.75 H, Estim Creat Clear Calc 21.56, Est GFR (MDRD) Af Amer 36 L, Est GFR (MDRD) Non-Af 30 L, BUN/Creatinine Ratio 16.6, Glucose 207 H, Calcium 9.5, Troponin I High Sens 500 H* 05/19/22 17:43: WBC 12.6 H, RBC 4.01 L, Hgb 12.2, Hct 38.5, MCV 96.0, MCH 30.4, MCHC 31.7 L, RDW Std Deviation 45.8 H, RDW Coeff of Terrie 12.8, Plt Count 238, MPV 10.4, Immature Gran % (Auto) 0.600, Neut % (Auto) 88.8 H, Lymph % (Auto) 6.5 L, Mcdowell % (Auto) 3.8, Eos % (Auto) 0.1, Baso % (Auto) 0.2, Absolute Neuts (auto) 11.2 H, Absolute Lymphs (auto) 0.82 L, Nucleated RBC % 0 05/19/22 17:43: PT 14.7, INR 1.2, APTT 185.6 H* 05/19/22 17:43: Sodium 141, Potassium 4.1, Chloride 110 H, Carbon Dioxide 22.0, Anion Gap 9, BUN 28 H, Creatinine 1.40 H, Estim Creat Clear Calc 26.95, Est GFR (MDRD) Af Amer 47 L, Est GFR (MDRD) Non-Af 39 L, BUN/Creatinine Ratio 20.0, Glucose 121 H, Calcium 8.3 L 05/19/22 17:48: POC Glucose 102 05/19/22 21:05: WBC 8.7, RBC 3.96 L, Hgb 12.0, Hct 37.2, MCV 93.9, MCH 30.3, MCHC 32.3, RDW Std Deviation 44.7 H, RDW Coeff of Terrie 13.0, Plt Count 225, MPV 10.4 05/19/22 21:30: POC Glucose 120 H 05/20/22 05:05: WBC 6.5, RBC 3.70 L, Hgb 11.1 L, Hct 34.9 L, MCV 94.3, MCH 30.0, MCHC 31.8 L, RDW Std Deviation 45.2 H, RDW Coeff of Terrie 13.2, Plt Count 208, MPV 10.2, Immature Gran % (Auto) 0.500, Neut % (Auto) 76.5 H, Lymph % (Auto) 15.1 L, Mcdowell % (Auto) 7.7, Eos % (Auto) 0.0, Baso % (Auto) 0.2, Absolute Neuts (auto) 5.0, Absolute Lymphs (auto) 0.98, Nucleated RBC % 0 05/20/22 05:05: Sodium 140, Potassium 4.1, Chloride 110 H, Carbon Dioxide 22.0, Anion Gap 8, BUN 26 H, Creatinine 1.31 H, Estim Creat Clear Calc 27.54, Est GFR (MDRD) Af Amer 50 L, Est GFR (MDRD) Non-Af 42 L, BUN/Creatinine Ratio 19.8, Glucose 113 H, Calcium 8.4 L, Total Bilirubin 0.40, AST 518 H, ALT 111 H, Alkaline Phosphatase 53, Total Protein 6.0 L, Albumin 3.1 L, Globulin 2.9, Albumin/Globulin Ratio 1.1, Triglycerides 219 H, Cholesterol 213 H, LDL Cholesterol 130, VLDL Cholesterol 44 H, HDL Cholesterol 39 L 05/20/22 05:05: Magnesium 2.1 05/20/22 06:29: POC Glucose 103 Radiography Diagnostic Testing: Radiology Impression Chest X-Ray 05/19/22 15:10 IMPRESSION: No acute cardiopulmonary abnormality. No interval change. Electronically Signed: Morgan Alonso MD at 15:52 EDT , Physical Exam Narrative GENERAL: cooperative HEENT: Atraumatic; normocephalic EYES; Anicteric, Normal Conjunctiva NECK; supple, normal thyroid, RESPIRATORY: Diminished to auscultation CARDIOVASCULAR: Regular S1 S2, GI: soft, normoactive bowel sounds, : No Renal angle tenderness; EXTREMITIES: No edema, no clubbing, MUSCULOSKELETAL: no muscle wasting NEURO: Awake; no lateralizing signs. SKIN: No Rash PSYCH; Flat affect Assessment & Plan Assessment/Plan (1) ST elevation (STEMI) myocardial infarction: PLAN: Plan Patient is a 77-year-old lady who was brought with profound weakness. EKG demonstrated ST segment elevation NM involving the inferior wall. Underwent emergency left heart catheterization with stent placement to RCA lesion 1. Acute ST segment elevation NM ? Patient underwent emergency left heart catheterization with PCI with ZAK to LAD and RCA lesion. Subsequently started on dual antiplatelet therapy, beta-blockers and VALENTIN inhibitors. Echo ordered to assess EF 2. Hypertension - Blood pressure controlled, home medications continued with dose adjustment as needed 3. Dyslipidemia -Patient is on statin therapy, 4. Nonsustained VT ? Monitored on continuous telemetry ordered BMP to correct any electrolyte abnormalities 5. Chronic kidney disease stage III ? Baseline creatinine 1.2 creatinine on admission was 1.75 started on IV fluid with subsequent monitoring of electrolytes 6. DVT prophylaxis - On enoxaparin Time spent in the patient's overall evaluation,decision-making process, review of diagnostic data, adjustment of management, discussion with other providers, nursing nursing and ancillary staff involved in patient's care documentation, 55 minutes Charges/Coding Visit Charges Inpatient E&M: [id number] [facility] L3
[2022-05-20 08:43] LABS: Hemoglobin A1c 5.6 % (3.8-5.6)
[2022-05-20] MEDS: Cholecalciferol (VIT D3) 25 MCG TABLET (1,000 UNITS) 50 MCG PO (09:41)
[2022-05-20] MEDS: TICAGRELOR 90 MG TABLET PO ×2 (09:41→22:01)
[2022-05-20] MEDS: Enoxaparin 30 MG/0.3 ML Syringe SC (09:41)
[2022-05-20] MEDS: Aspirin E.C. 81 MG Tablet PO (09:41)
--- NOTE | 2022-05-20 10:00 | EKG12_ITS ---
Test Reason : POST CATH Blood Pressure : / mmHG Vent. Rate : 089 BPM Atrial Rate : 089 BPM P-R Int : 146 ms QRS Dur : 076 ms QT Int : 400 ms P-R-T Axes : 027 -35 115 degrees QTc Int : 486 ms Normal sinus rhythm Left axis deviation Inferior infarct , possibly acute ACUTE HI / STEMI Consider right ventricular involvement in acute inferior infarct Abnormal ECG Confirmed by SHERI PEÑALOZA, KELSEY ([id number]), supervising film or videotape editor RAGHAVENDRA SWANSON ([id number]) on 05/21/2022 8:51:33 AM Referred By: Edilberto Carvalho Confirmed By:KELSEY WADE MD
--- NOTE | 2022-05-20 10:44 | CRPHASE1 ---
Patient Communication Former Patient:: Phase I PHII Cardiac Rehab Discussed with Patient:: Yes Guide to Cardiac Rehab Given to Patient:: Yes Cardiac Rehab Facility Choice List Given to Patient:: Yes Choice Program [facility] CR PHII:: Communication Given to CR Rn Forensic:: Edilberto Carvalho Cardiac Rehabilitation Info Cardiac Rehabilitation Program Information: Cardiac Rehab The cardiac rehab team at [facility] consists of highly skilled exercise physiologists, nurses, respiratory therapists and physicians working together with you. Our purpose is to help you have a full recovery and achieve the goals you set for yourself. Over the years many of our patients have returned to activities they assumed they would never do again! We can help restore your confidence and motivation to make lifestyle changes that can have a significant impact on your health and quality of life! We can help answer questions and concerns you may have about exercise, lifestyle, medications, diet, stress and anxiety which are common following a hospitalization. WE monitor ECG and vital signs during exercise and discuss your progress with you and report to your physician(s). Cardiac Rehab is proven to help reduce readmissions, improve functional capacity and lower recurrence of problems with your heart. Our Cardiac Rehab program is Certified by the [place] [employer]-Vascular [employer] Pulmonary [employer] (AACVPR) and Accredited by the [place] [employer] through our [facility]. You can contact us at . We invite you to call us with your questions or to get started in our program. If you have other questions or concerns be sure to ask your physician/provider during your follow-up visit. WE look forward to seeing you!
--- NOTE | 2022-05-20 10:45 | CASEMGMT ---
RN CM Face to Face with patient for initial transition planning/care coordination assessment. RN CM introduced self and role at [facility]. Patient lying in bed, alert and oriented, daughter at bedside. Patient willing to participate in assessment and is able to answer all questions appropriately. Care providers, pharmacy, and demographics verified. Patient wishes to discharge home, denies need for home health at this time. Patient states she has no further needs or concerns at this time. CM to follow for discharge planning needs that may arise. PCP: Carlos Lawrence Specialists: none Preferred Pharmacy: [facility] Insurance: [facility] Prescription Benefit: none, [employer]il[employer] savings card provided to patient Living Will/HPOA: yes, daughter Sussy Macario LNOK: daughter Living Arrangements: Patient lives alone in a single story home 3 steps to enter the home. Patient is independent at home. Transportation: daughter DME/HHC: Patient has shower chair, raised toilet, cane, crutches, grab bars, walker, WC, pulse ox. No previous HHC or SNF Disposition Plan: Patient to discharge home with family support and follow-up plans in place Criss CALDERON, RN, CM
--- NOTE | 2022-05-20 10:45 | CRPH1.INSTRU ---
General Education CAD and cardiac anatomy and function:: Patient communicates acknowledgment Explanation of diagnoses and procedures:: Patient communicates acknowledgment Sign/Symptoms of GA:: Patient communicates acknowledgment Antiplatelet therapy: Patient communicates acknowledgment Smoking Patient Nicotine/Smoking Risk Factors Are:: Never smoked Nicotine/Smoking Response Code:: Patient communicates acknowledgment Dyslipidemia Dyslipidemia Response Code:: Patient communicates acknowledgment Hypertension Recommendations Include:: BP <130/80 if diabetic Hypertension:: Patient communicates acknowledgment Heart Disease Patient Heart Disease Risk Factors Are:: Previous cardiac event Heart Disease Response Code:: Patient communicates acknowledgment Stress Recommendations Include:: Stress management techniques Stress Response Code:: Patient communicates acknowledgment
[2022-05-20 12:35] LABS: Bedside Glucose 98 mg/dL (74-106)
[2022-05-20] MEDS: Carvedilol 3.125 MG TABLET PO (15:11)
--- NOTE | 2022-05-20 15:25 | CHAPLAIN ---
Type of Pastoral Visit _x__ Initial Visit ___ Follow-up Visit ___ On-call Visit ___ General Patient Visit ___ Spiritual Assessment ___ Family Conference ___ Bereavement ___ Rapid Response ___ Code Blue ___ Other (describe below) Pastoral Care Referral From _x__ Patient ___ Family ___ Nurse ___ Physician ___ Ag Service Manager ___ First Officer And Flight Instructor ___ Other (describe below) Sacrament/Intervention _x__ Active listening ___ Anointing ___ Adventist ___ Bereavement ___ Communion _x__ Maria Isabel exploration ___ _x__ Life review _x__ Prayer ___ Reconciliation ___ Sacrament of Sick _x__ Supportive presence ___ Wedding ___ Other (describe below) Pastoral Comments patient was seen in ICU before moving to PCU; pt is welcoming and describes her day yesterday that led to admission and treatment; pt admits that God was watching over her as she easily could have ; daughter is with pt; daughter is supportive; patient also speaks of of last year and how her life has changed and where she finds strength; pt welcomes prayer and presence
[2022-05-20] MEDS: Ensure Plus High Protein 120 ML LIQUID PO ×2 (17:17→21:59)
[2022-05-20 17:36] LABS: Bedside Glucose 110 mg/dL (74-106)
[2022-05-20] MEDS: Pravastatin 40 MG Tablet PO (22:00)
[2022-05-20] MEDS: MELATONIN 10 MG TABLET PO (22:27)
--- NOTE | 2022-05-20 23:57 | EKG12_ITS ---
Test Reason : RAPID RESPONSE Blood Pressure : / mmHG Vent. Rate : 094 BPM Atrial Rate : 094 BPM P-R Int : 180 ms QRS Dur : 096 ms QT Int : 320 ms P-R-T Axes : 065 -16 124 degrees QTc Int : 400 ms Normal sinus rhythm Septal infarct , age undetermined Inferior infarct , possibly acute T wave abnormality, consider lateral ischemia ACUTE SD / STEMI Confirmed by SHERI PEÑALOZA, KELSEY ([id number]), restaurant expeditor RAGHAVENDRA SWANSON ([id number]) on 05/22/2022 8:25:01 AM Referred By: Edilberto Carvalho Confirmed By:KELSEY WADE MD
[2022-05-21] VITALS (28 sets, daily range): BP systolic 92–131; BP diastolic 50–81; PULSE 60–98; RESP 14–23; TEMP 36.4–36.7; O2SAT 93–100; BMI 31.8
--- NOTE | 2022-05-21 00:05 | EKG12_ITS ---
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 Rate : 090 BPM Atrial Rate : 090 BPM P-R Int : 148 ms QRS Dur : 084 ms QT Int : 384 ms P-R-T Axes : 066 -35 119 degrees QTc Int : 469 ms Normal sinus rhythm Left axis deviation Septal infarct , age undetermined Inferior infarct , possibly acute ACUTE AR / STEMI Confirmed by SHERI PEÑALOZA, KELSEY ([id number]), legal editor RAGHAVENDRA SWANSON ([id number]) on 05/27/2022 1:55:43 PM Referred By: Edilberto Carvalho Confirmed By:KELSEY WADE MD
--- NOTE | 2022-05-21 00:10 | EKG12_ITS ---
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 Rate : 132 BPM Atrial Rate : 085 BPM P-R Int : 150 ms QRS Dur : 076 ms QT Int : 352 ms P-R-T Axes : 044 -33 058 degrees QTc Int : 521 ms Sinus rhythm with NSVT Left axis deviation Low voltage QRS Inferior infarct , possibly acute Confirmed by SHERI PEÑALOZA, KELSEY ([id number]), online editor RAGHAVENDRA SWANSON ([id number]) on 05/22/2022 8:17:15 AM Referred By: Edilberto Carvalho Confirmed By:KELSEY WADE MD
--- NOTE | 2022-05-21 00:12 | RAD_ITS ---
EXAM: XR CHEST, 1 VIEW CLINICAL INDICATION: vtach TECHNIQUE: Frontal view of the chest. This report was created using Neo[employer] report generation technology. COMPARISON: May 19, 2022 FINDINGS: LUNGS AND PLEURAL SPACES: Unremarkable. No consolidation. No pleural effusion or pneumothorax. No hilar enlargement. Trachea is unremarkable. HEART: Fullness of the cardiac silhouette as before. MEDIASTINUM: No jacky enlargement. BONES/JOINTS: Degenerative changes of the spine. SOFT TISSUES: Unremarkable. VASCULATURE: Atherosclerotic calcifications of the nonenlarged thoracic aortic arch. UPPER ABDOMEN: Elevated right hemidiaphragm as before. RAD/Chest 1 View (Portable) IMPRESSION: No pneumonia or other acute cardiopulmonary disease. Electronically Signed: Casey Coelho MD at 1:02 EDT ,
[2022-05-21] MEDS: Furosemide 40 MG/4 ML Vial IV (00:16)
[2022-05-21] MEDS: 0.9% Saline Lock 10 ML Syringe IV (00:16)
[2022-05-21] MEDS: Aspirin 81 MG TAB.CHEW 162 MG PO (00:23)
[2022-05-21 00:26] LABS: Absolute Lymphocyte Count 1.89 X10^3/uL (0.83-4.51); Absolute Neutrophil Count 3.7 X10^3/uL (2.0-7.7); Basophil# 0.02 X10^3/uL; Basophil% 0.3 % (0-1); Eosinophil# 0.05 X10^3/uL; Eosinophils% 0.8 % (0-5); Hematocrit 34.4 % (37-47); Hemoglobin 11.2 g/dL (12.0-15.0); Lymphocyte # 1.89 X10^3/ul (0.83-4.51); Lymphocyte % 30.1 % (19-41); Mean Corp Hgb Conc 32.6 g/dL (32-36); Mean Corpuscular Hgb 30.9 pg (27.0-32.0); Mean Platelet Vol. 10.3 fl (6.2-12.0); Monocyte# 0.61 X10^3/uL; Monocyte% 9.7 % (0-10); NRBC Flagged by Analyzer 0 % (0-5); Neutrophil # 3.69 X10^3/uL (2.7-7.7); Neutrophil % 58.9 % (47-70); Platelet Count 195 K/mm3 (150-450); RBC Distribution Width CV 13.3 % (11.6-14.6); RBC Distribution Width SD 46.1 fl (35.1-43.9); Red Blood Count 3.62 M/mm3 (4.2-5.4); White Blood Count 6.3 K/mm3 (4.4-11.0)
[2022-05-21 00:43] LABS: BNP,B-Type NATRIURETIC PEPTIDE 283.9 pg/mL (0-100)
[2022-05-21 00:50] LABS: Anion Gap 8 (5-15); BUN 28 mg/dL (7-18); BUN/Creat Ratio 22.6 RATIO (10-20); Calcium,Total 8.7 mg/dL (8.5-10.1); Chloride 112 mmol/L (98-107); Creatinine, Serum 1.24 mg/dL (0.55-1.02); EST Glomerular Filtration Rate 44 mL/min (>60); Est Glom Filt Rate - Afr Amer 54 mL/min (>60); Estimated Creatinine Clearance 30.43 ml/min; Glucose 138 mg/dL (74-106); Potassium 4.1 mmol/L (3.5-5.1); Sodium Level 142 mmol/L (136-145)
--- NOTE | 2022-05-21 00:54 | PCM.PN.BLA ---
Progress Note Rapid Response Patient noted to have multiple episodes of unsustained V. tach. Patient reports that tightness. There is report of patient was diaphoretic and pale. Patient was assessed at the bedside. EKG showed J-point elevation in inferior leads. Multiple EKGs done with lowering of J-point especially when patient was supine. Patient alert and anxious. S1-S2 present. No murmur gallop or rub. Lungs with Rales Abdomen soft nontender nondistended. Discussed with cardiology. Will check BNP, CBC and BMP. Lasix 40 mg IV push ordered. Chest x-ray ordered.
--- NOTE | 2022-05-21 01:15 | EKG12_ITS ---
Test Reason : RAPID RESPONSE REPEAT Blood Pressure : / mmHG Vent. Rate : 090 BPM Atrial Rate : 090 BPM P-R Int : 164 ms QRS Dur : 098 ms QT Int : 436 ms P-R-T Axes : 044 -26 143 degrees QTc Int : 533 ms Normal sinus rhythm Minimal voltage criteria for LVH, may be normal variant ( R in aVL ) Inferior infarct , possibly acute ACUTE ME / STEMI Confirmed by SHERI PEÑALOZA, KELSEY ([id number]), supervising film or videotape editor RAGHAVENDRA SWANSON ([id number]) on 05/22/2022 8:18:19 AM Referred By: Edilberto Carvalho Confirmed By:KELSEY WADE MD
[2022-05-21 01:47] LABS: Partial Thromboplast Time 30.2 Seconds (24.1-36.2)
[2022-05-21] MEDS: Heparin Injection (Vial) 5,000 UNIT/ML VIAL 4000 UNIT IV (01:59)
[2022-05-21] MEDS: Amiodarone 360 MG in Dextrose 5% Viaflo Bag 192.8 ML 33.3 MG CONT INF (02:00)
[2022-05-21] MEDS: HEPARIN/D5w 25,000 UNITS 25,000 UNITS/250 ML IV.SOLN. 10 UNITS CONT INF (02:42)
--- NOTE | 2022-05-21 04:32 | NURSING ---
255AM; report called to ICU. Pt transferred at this time.
--- NOTE | 2022-05-21 04:36 | NURSING ---
pt request staff doesn't call family until morning to let know of transfer from PCU to ICU.
[2022-05-21 04:41] LABS: Hematocrit 35.8 % (37-47); Hemoglobin 11.5 g/dL (12.0-15.0); Mean Corp Hgb Conc 32.1 g/dL (32-36); Mean Corpuscular Hgb 30.1 pg (27.0-32.0); Mean Corpuscular Volume 93.7 fL (81-99); Mean Platelet Vol. 10.8 fl (6.2-12.0); Platelet Count 211 K/mm3 (150-450); RBC Distribution Width CV 13.4 % (11.6-14.6); RBC Distribution Width SD 45.7 fl (35.1-43.9); Red Blood Count 3.82 M/mm3 (4.2-5.4); White Blood Count 7.2 K/mm3 (4.4-11.0)
[2022-05-21 04:46] LABS: Bedside Glucose 121 mg/dL (74-106)
[2022-05-21 05:06] LABS: Anion Gap 8 (5-15); BUN 29 mg/dL (7-18); BUN/Creat Ratio 22.3 RATIO (10-20); Chloride 107 mmol/L (98-107); EST Glomerular Filtration Rate 42 mL/min (>60); Est Glom Filt Rate - Afr Amer 51 mL/min (>60); Estimated Creatinine Clearance 29.03 ml/min; Glucose 146 mg/dL (74-106); Magnesium 2.9 mg/dL (1.6-2.6); Phosphorus 2.9 mg/dL (2.5-4.9); Potassium 3.7 mmol/L (3.5-5.1); Sodium Level 139 mmol/L (136-145)
[2022-05-21] MEDS: Carvedilol 3.125 MG TABLET PO ×2 (05:42→20:55)
[2022-05-21] MEDS: TICAGRELOR 90 MG TABLET PO ×2 (05:42→20:55)
[2022-05-21] MEDS: Aspirin E.C. 81 MG Tablet PO (05:42)
--- NOTE | 2022-05-21 07:28 | NURSING ---
Addendum entered by Joanna Watkins 05/21/22 07:29: rapid response overnight, vtach, torsades, transferred to ICU. see CRUISE DIRECTOR documentation. Original Note: rapid response overnight, vtach, torsades, transfered to ICU.
--- NOTE | 2022-05-21 07:31 | NURSING ---
Transferred off floor via civil laboratory technician RN at this time.
--- NOTE | 2022-05-21 07:33 | PN.HOSP_ITS ---
Reason for Visit Reason for Visit: Diagnoses Hyperlipidemia, unspecified (05/19/22) Essential (primary) hypertension (05/19/22) ST elevation (STEMI) myocardial infarction of unspecified site (05/19/22) Other ventricular tachycardia (05/19/22) Chronic kidney disease, stage 3b (05/19/22) Subjective Subjective Patient had several runs of nonsustained VT and had to be placed on amiodarone cardiology consulted plans for patient to undergo repeat left heart catheterization Objective Data Objective Data Vital Signs: Vital Signs Temp Pulse Resp BP Pulse Ox O2 Del Method O2 Flow Rate 98.1 F 80 18 92/54 L 96 Nasal Cannula 2 05/20/22 15:05 05/21/22 07:00 05/21/22 07:00 05/21/22 07:00 05/21/22 07:00 05/21/22 07:00 05/21/22 07:00 Oxygen Flow Rate (L/min) 2 Oxygen Delivery Method Nasal Cannula Weight: 81.7 kg Body Mass Index (BMI) 31.8 Intake & Output: Intake and Output for Last 24 Hours 05/19/22 05/20/22 05/21/22 23:59 23:59 23:59 Intake Total 1124.8 / 1124.8 1491.77 / 1491.77 210 / 210 Output Total 100 / 100 125 / 125 850 / 850 Balance 1024.8 / 1024.8 1366.77 / 1366.77 -640 / -640 Lab / Micro Data Result Diagrams: 05/21/22 04:25 05/21/22 04:25 Labs: Laboratory Results - last 24 hr 05/20/22 05:05: Hemoglobin A1c 5.6 05/20/22 12:14: POC Glucose 98 05/20/22 17:07: POC Glucose 110 H 05/21/22 00:01: POC Glucose 121 H 05/21/22 00:20: Sodium 142, Potassium 4.1, Chloride 112 H, Carbon Dioxide 22.0, Anion Gap 8, BUN 28 H, Creatinine 1.24 H, Estim Creat Clear Calc 30.43, Est GFR (MDRD) Af Amer 54 L, Est GFR (MDRD) Non-Af 44 L, BUN/Creatinine Ratio 22.6 H, Glucose 138 H, Calcium 8.7, Troponin I High Sens [id number] H* 05/21/22 00:20: WBC 6.3, RBC 3.62 L, Hgb 11.2 L, Hct 34.4 L, MCV 95.0, MCH 30.9, MCHC 32.6, RDW Std Deviation 46.1 H, RDW Coeff of Terrie 13.3, Plt Count 195, MPV 10.3, Immature Gran % (Auto) 0.200, Neut % (Auto) 58.9, Lymph % (Auto) 30.1, [place] % (Auto) 9.7, Eos % (Auto) 0.8, Baso % (Auto) 0.3, Absolute Neuts (auto) 3.7, Absolute Lymphs (auto) 1.89, Nucleated RBC % 0 05/21/22 00:20: B-Natriuretic Peptide 283.9 H 05/21/22 00:20: APTT 30.2 05/21/22 02:19: Troponin I High Sens [id number] H* 05/21/22 04:25: WBC 7.2, RBC 3.82 L, Hgb 11.5 L, Hct 35.8 L, MCV 93.7, MCH 30.1, MCHC 32.1, RDW Std Deviation 45.7 H, RDW Coeff of Terrie 13.4, Plt Count 211, MPV 10.8 05/21/22 04:25: Sodium 139, Potassium 3.7, Chloride 107, Carbon Dioxide 24.0, Anion Gap 8, BUN 29 H, Creatinine 1.30 H, Estim Creat Clear Calc 29.03, Est GFR (MDRD) Af Amer 51 L, Est GFR (MDRD) Non-Af 42 L, BUN/Creatinine Ratio 22.3 H, Glucose 146 H, Calcium 9.0, Phosphorus 2.9, Magnesium 2.9 H 05/21/22 04:25: Troponin I High Sens 61631 H* Radiography Diagnostic Testing: Radiology Impression Echocardiogram 05/19/22 17:43 Interpretation Summary Normal LV size. Moderate segmental systolic dysfunction (see wall motion). The left ventricular ejection fraction is 35 %. Stage 1 diastolic dysfunction. Contrast injection was performed. Ordering Physician: Liliana Carvalho Referring Physician: Carlos Lawrence Performed By: Venita Culver, RDCS, RVT Chest X-Ray 05/21/22 00:12 IMPRESSION: No pneumonia or other acute cardiopulmonary disease. Electronically Signed: Casey Coelho MD at 1:02 EDT , Physical Exam Narrative GENERAL: cooperative HEENT: Atraumatic; normocephalic EYES; Anicteric, Normal Conjunctiva NECK; supple, normal thyroid, RESPIRATORY: Diminished to auscultation CARDIOVASCULAR: Regular S1 S2, GI: soft, normoactive bowel sounds, : No Renal angle tenderness; EXTREMITIES: No edema, no clubbing, MUSCULOSKELETAL: no muscle wasting NEURO: Awake; no lateralizing signs. SKIN: No Rash PSYCH; Flat affect Assessment & Plan Assessment/Plan (1) ST elevation (STEMI) myocardial infarction: PLAN: Plan Patient is a 77-year-old lady who was brought with profound weakness. EKG demonstrated ST segment elevation [place] involving the inferior wall. Underwent emergency left heart catheterization with stent placement to RCA lesion 1. Acute ST segment elevation [place] ? Patient underwent emergency left heart catheterization with PCI with ZAK to LAD and RCA lesion. Subsequently started on dual antiplatelet therapy, beta- blockers and VALENTIN inhibitors. Echo ordered to assess EF 2. Hypertension - Blood pressure controlled, home medications continued with dose adjustment as needed 3. Dyslipidemia -Patient is on statin therapy, 4. Nonsustained VT ? Monitored on continuous telemetry ordered BMP to correct any electrolyte abnormalities -05/21/2022; Patient had several runs of nonsustained VT and had to be placed on amiodarone cardiology consulted plans for patient to undergo repeat left heart catheterization. Patient repeat left heart catheterization demonstrated patent stents she was however found to have cardiomyopathy with EF of 25% 5. Chronic kidney disease stage III ? Baseline creatinine 1.2 creatinine on admission was 1.75 started on IV fluid with subsequent monitoring of electrolytes 6. DVT prophylaxis - On enoxaparin Time spent in the patient's overall evaluation,decision-making process, review of diagnostic data, adjustment of management, discussion with other providers, nursing nursing and ancillary staff involved in patient's care documentation, 55 minutes Charges/Coding Visit Charges Inpatient E&M: 47956 Subs Hosp L3
[2022-05-21] MEDS: Amiodarone 360 MG in Dextrose 5% Viaflo Bag 192.8 ML 16.7 MG CONT INF ×2 (08:20→20:59)
--- NOTE | 2022-05-21 08:52 | PN.CARD_ITS ---
Subjective Subjective Patient seen and evaluated. Events of last night noted. Had nonsustained VT as well as torsades de points. Patient taken to the [facility] this morning. Objective Data Vital Signs: Vital Signs Temp Pulse Resp BP Pulse Ox O2 Del Method O2 Flow Rate 98.1 F 80 18 92/54 L 96 Nasal Cannula 2 05/20/22 15:05 05/21/22 07:00 05/21/22 07:00 05/21/22 07:00 05/21/22 07:00 05/21/22 07:39 05/21/22 07:39 Oxygen Flow Rate (L/min) 2 Oxygen Delivery Method Nasal Cannula Weight: 180 lb 1.883 oz Body Mass Index (BMI) 31.8 Intake & Output: Intake and Output for Last 24 Hours 05/19/22 05/20/22 05/21/22 23:59 23:59 23:59 Intake Total 1124.8 / 1124.8 1491.77 / 1491.77 210 / 210 Output Total 100 / 100 125 / 125 850 / 850 Balance 1024.8 / 1024.8 1366.77 / 1366.77 -640 / -640 Lab / Micro Data Result Diagrams: 05/21/22 04:25 05/21/22 04:25 Labs: Laboratory Results - last 24 hr 05/20/22 12:14: POC Glucose 98 05/20/22 17:07: POC Glucose 110 H 05/21/22 00:01: POC Glucose 121 H 05/21/22 00:20: Sodium 142, Potassium 4.1, Chloride 112 H, Carbon Dioxide 22.0, Anion Gap 8, BUN 28 H, Creatinine 1.24 H, Estim Creat Clear Calc 30.43, Est GFR (MDRD) Af Amer 54 L, Est GFR (MDRD) Non-Af 44 L, BUN/Creatinine Ratio 22.6 H, Glucose 138 H, Calcium 8.7, Troponin I High Sens [id number] H* 05/21/22 00:20: WBC 6.3, RBC 3.62 L, Hgb 11.2 L, Hct 34.4 L, MCV 95.0, MCH 30.9, MCHC 32.6, RDW Std Deviation 46.1 H, RDW Coeff of Terrie 13.3, Plt Count 195, MPV 10.3, Immature Gran % (Auto) 0.200, Neut % (Auto) 58.9, Lymph % (Auto) 30.1, [place] % (Auto) 9.7, Eos % (Auto) 0.8, Baso % (Auto) 0.3, Absolute Neuts (auto) 3.7, Absolute Lymphs (auto) 1.89, Nucleated RBC % 0 05/21/22 00:20: B-Natriuretic Peptide 283.9 H 05/21/22 00:20: APTT 30.2 05/21/22 02:19: Troponin I High Sens [id number] H* 05/21/22 04:25: WBC 7.2, RBC 3.82 L, Hgb 11.5 L, Hct 35.8 L, MCV 93.7, MCH 30.1, MCHC 32.1, RDW Std Deviation 45.7 H, RDW Coeff of Terrie 13.4, Plt Count 211, MPV 10.8 05/21/22 04:25: Sodium 139, Potassium 3.7, Chloride 107, Carbon Dioxide 24.0, Anion Gap 8, BUN 29 H, Creatinine 1.30 H, Estim Creat Clear Calc 29.03, Est GFR (MDRD) Af Amer 51 L, Est GFR (MDRD) Non-Af 42 L, BUN/Creatinine Ratio 22.3 H, Glucose 146 H, Calcium 9.0, Phosphorus 2.9, Magnesium 2.9 H 05/21/22 04:25: Troponin I High Sens [id number] H* Cardiology Labs/Tests 05/21/22 00:20: Sodium 142, Potassium 4.1, Chloride 112 H, Carbon Dioxide 22.0, Anion Gap 8, BUN 28 H, Creatinine 1.24 H, Est GFR (MDRD) Af Amer 54 L, Est GFR (MDRD) Non-Af 44 L, BUN/Creatinine Ratio 22.6 H, Glucose 138 H, Calcium 8.7 05/21/22 00:20: WBC 6.3, RBC 3.62 L, Hgb 11.2 L, Hct 34.4 L, MCV 95.0, MCH 30.9, MCHC 32.6, Plt Count 195, MPV 10.3, Immature Gran % (Auto) 0.200, Neut % (Auto) 58.9, Lymph % (Auto) 30.1, [place] % (Auto) 9.7, Eos % (Auto) 0.8, Baso % (Auto) 0.3, Absolute Neuts (auto) 3.7, Nucleated RBC % 0 05/21/22 00:20: B-Natriuretic Peptide 283.9 H 05/21/22 00:20: APTT 30.2 05/21/22 04:25: WBC 7.2, RBC 3.82 L, Hgb 11.5 L, Hct 35.8 L, MCV 93.7, MCH 30.1, MCHC 32.1, Plt Count 211, MPV 10.8 05/21/22 04:25: Sodium 139, Potassium 3.7, Chloride 107, Carbon Dioxide 24.0, Anion Gap 8, BUN 29 H, Creatinine 1.30 H, Est GFR (MDRD) Af Amer 51 L, Est GFR (MDRD) Non-Af 42 L, BUN/Creatinine Ratio 22.3 H, Glucose 146 H, Calcium 9.0, Phosphorus 2.9, Magnesium 2.9 H Rhythm: EKG: ECHO: Stress Test: Cardiac Cath: PCI: CT Surgery: Holter monitor: EPS: PPM: CXR: Chest CT Scan: Radiography Diagnostic Testing: Radiology Impression Echocardiogram 05/19/22 17:43 Interpretation Summary Normal LV size. Moderate segmental systolic dysfunction (see wall motion). The left ventricular ejection fraction is 35 %. Stage 1 diastolic dysfunction. Contrast injection was performed. Ordering Physician: Liliana Carvalho Referring Physician: Carlos Lawrence Performed By: Venita Culver, RDCS, RVT Chest X-Ray 05/21/22 00:12 IMPRESSION: No pneumonia or other acute cardiopulmonary disease. Electronically Signed: Casey Coelho MD at 1:02 EDT , Physical Exam Const alert, oriented x3 and no apparent distress General Appearance: cooperative HEENT hearing grossly normal bilaterally Head and Scalp: atraumatic Eyes EOMs intact bilaterally Neck General: normal visual inspection Chest inspection of chest normal and palpation of chest normal Resp normal respiratory effort Auscultation: clear to auscultation bilaterally Cardio regular rate, regular rhythm, S1 normal heart sound and S2 normal heart sound Jugular Venous Distention: JVD GI normal to inspection, nondistended, normoactive bowel sounds Extremity normal capillary refill and no pedal edema Peripheral Pulses: Yes pulses 2+ throughout and femoral pulses present Skin no rashes or lesions noted Neuro oriented x3 and CN's II-XII intact bilaterally Psych Appearance: grossly normal and appropriate Assessment & Plan Assessment/Plan (1) ST elevation (STEMI) myocardial infarction: PLAN: Patient with a history of ST elevation myocardial infarction status post PCI and stenting of the right coronary artery. * Plan to be to continue guideline directed medical care with statins and aspirin and antiplatelet agents. * Echocardiogram had demonstrated ejection fraction around 25%. * Cardiac catheterization performed this morning due to recurrent arrhythmias demonstrated patency and improved flow in the right coronary system, and unchanged flow in the left anterior descending artery, and a nondominant left circumflex artery with a chronic occlusion of the obtuse marginal branch. We will continue medical therapy for this. * Discontinue heparin for now. * [place] beta-warren and VALENTIN inhibitor as tolerated (2) Essential (primary) hypertension: PLAN: Patient appears to have mildly reduced blood pressure at this time. We will continue to monitor and adjust medications as appropriate (3) Hyperlipemia: PLAN: We will institute high intensity statin. She has previously not tolerated Lipitor and Crestor * Will attempt pravastatin (4) NSVT (nonsustained ventricular tachycardia): PLAN: Patient had some runs of nonsustained VT. * Potassium and magnesium appear to be stable. We will continue intravenous amiodarone for 24 hours and then switch over to oral amiodarone. * Will reevaluate left ventricular systolic function and consider an implantable defibrillator after 42 days if patient's ejection fraction still less than 35%. Thank you for allowing me to participate in the care of your patient. Please don't hesitate to call if any issues arise.
--- NOTE | 2022-05-21 09:05 | CL.D_ITS ---
Patient Name: LETITIA LIGHT Study Date: 05/21/2022 Performing: Mitch Lebron MD Ht: 63 inches 160.02 cm : 1945 Wt: 180.4 lbs 81.7 kg Age: 77 Gender: female BSA: 1.85 PROCEDURE(S) PERFORMED DC01-([id number])LHC/COR/LV CLINICAL PROFILE AND INDICATIONS Indications: Cardiac Arrythmia Heart Failure: None Stress/Imaging Stress/Image Study Performed: No CAD Presentations: Other: VT CONCLUSIONS Status post recent inferior myocardial infarction with patent right coronary artery stenting with good flow and severe left ventricular systolic dysfunction with akinetic inferior wall. RECOMMENDATIONS Guideline directed medical care and reevaluation of left ventricular systolic function in 6 weeks to assess ventricular function and consideration for ICD if no significant improvement DESCRIPTION OF PROCEDURE The patient arrived to the procedure lab. The risks and benefits of the procedure as well as a full description of our services here and current unavailability of surgical backup were fully explained to the patient and/or their significant other prior to the catheterization. The Timeout was completed, verifying the correct patient and procedure. The patient's procedural site was prepped and draped in the usual fashion. Local anesthetic was given subcutaneously to right radial region with Lidocaine 2%. Local anesthetic was given subcutaneously to left radial region with Lidocaine 2%. Using a modified Seldinger technique, arterial access was obtained via the left radial artery, a 6Fr sheath was inserted. Right Coronary Artery selective angiography was then performed in multiple views using a 5 Fr. 4.0 [place] catheter. Left Coronary Artery selective angiography was performed in multiple views using a 5 Fr. JL3.5 catheter.The arterial sheath was pulled and a TR Band was applied for hemostasis, 11cc of air CORONARY ANGIOGRAPHY DOMINANCE: Right Dominant LEFT HEART ASSESSMENT Left Ventricular Ejection Fraction: by LV Gram 10 % Inferior Basal Akinesis. Global Hypokinesis - Severe Depressed Left Ventricular systolic function LEFT MAIN: Mild calcification, No significant disease noted LEFT ANTERIOR DESCENDING ARTERY: Mild luminal irregularities CIRCUMFLEX ARTERY: Nondominant vessel with high-grade stenosis noted in the first obtuse marginal branch and proximal vessel which appears to be chronic, RIGHT CORONARY ARTERY: Previously placed stent in the proximal and mid right coronary artery is noted to be patent with much improved distal flow COMPLICATIONS No Complications PROCEDURE MEDICATIONS Fentanyl 25 mcg IV Versed 0.5 mg IV Oxygen: 2 L/min via nasal cannula Benadryl 50 mg IV 05/21/2022 07:45:10 Amiodarone 500mg / 100ml D5W @ 1 mg/min IV cont from ICU @ 05/21/2022 07:49:22 Heparin given IA 05/21/2022 08:15:14 Solu-medrol 125 mg IV 05/21/2022 07:44:57 SUMMARY OF HEMODYNAMIC DATA Time AIR REST ECG 07:44:21 LV 121/20, 26 08:24:44 LV 114/19, 25 08:24:52 AO 105/68 (85) SA 08:25:21 LV 133/21, 34 08:29:26 LV 124/25, 36 08:29:35 LV 105/20, 29 08:30:41 LVp 102/21, 28 08:30:45 AOp 85/0 (46) 08:30:52 AO 134/78 (102) 08:32:57 Signed By Mitch Lebron MD On 05/21/2022 09:04:46 Mitch Lebron MD
--- NOTE | 2022-05-21 10:00 | EKG12_ITS ---
Test Reason : AM EKG Blood Pressure : / mmHG Vent. Rate : 078 BPM Atrial Rate : 078 BPM P-R Int : 186 ms QRS Dur : 110 ms QT Int : 446 ms P-R-T Axes : 069 -26 -78 degrees QTc Int : 508 ms Normal sinus rhythm Inferior infarct , possibly acute Anterior infarct , age undetermined T wave abnormality, consider lateral ischemia Confirmed by SHERI PEÑALOZA, KELSEY ([id number]), editor in chief RAGHAVENDRA SWANSON ([id number]) on 05/22/2022 8:27:16 AM Referred By: Edilberto Carvalho Confirmed By:KELSEY WADE MD
[2022-05-21] MEDS: Cholecalciferol (VIT D3) 25 MCG TABLET (1,000 UNITS) 50 MCG PO (10:20)
[2022-05-21] MEDS: Ensure Plus High Protein 120 ML LIQUID PO ×3 (12:49→21:04)
[2022-05-21] MEDS: Pravastatin 40 MG Tablet PO (20:55)
[2022-05-21] MEDS: MELATONIN 10 MG TABLET PO (21:56)
[2022-05-22] VITALS (16 sets, daily range): BP systolic 100–130; BP diastolic 48–91; PULSE 66–79; RESP 13–20; TEMP 36.4–37.1; O2SAT 94–99; BMI 32.0
[2022-05-22 06:24] LABS: Anion Gap 8 (5-15); BUN 29 mg/dL (7-18); BUN/Creat Ratio 26.4 RATIO (10-20); Calcium,Total 8.9 mg/dL (8.5-10.1); Chloride 110 mmol/L (98-107); EST Glomerular Filtration Rate 51 mL/min (>60); Est Glom Filt Rate - Afr Amer 62 mL/min (>60); Glucose 133 mg/dL (74-106); Sodium Level 141 mmol/L (136-145)
--- NOTE | 2022-05-22 07:29 | PN.HOSP_ITS ---
Reason for Visit Reason for Visit: Diagnoses Hyperlipidemia, unspecified (05/19/22) Essential (primary) hypertension (05/19/22) ST elevation (STEMI) myocardial infarction of unspecified site (05/19/22) Other ventricular tachycardia (05/19/22) Chronic kidney disease, stage 3b (05/19/22) Subjective Subjective Patient seen appears to be clinically stable. Patient IV amiodarone switched to p.o. Plan is advance activity as tolerated Objective Data Objective Data Vital Signs: Vital Signs Temp Pulse Resp BP Pulse Ox O2 Del Method O2 Flow Rate 97.6 F L 71 14 110/52 L 96 Room Air 2 05/22/22 04:00 05/22/22 06:00 05/22/22 06:00 05/22/22 06:00 05/22/22 06:00 05/22/22 06:00 05/21/22 19:00 Oxygen Flow Rate (L/min) 2 Oxygen Delivery Method Room Air Weight: 82 kg Body Mass Index (BMI) 32.0 Intake & Output: Intake and Output for Last 24 Hours 05/20/22 05/21/22 05/22/22 23:59 23:59 23:59 Intake Total 1491.77 / 1491.77 763.83 / 763.83 Output Total 125 / 125 1050 / 1050 Balance 1366.77 / 1366.77 -286.17 / -286.17 Lab / Micro Data Result Diagrams: 05/21/22 04:25 05/22/22 06:03 Labs: Laboratory Results - last 24 hr 05/22/22 05:35: Sodium Cancelled, Potassium Cancelled, Chloride Cancelled, Carbon Dioxide Cancelled, Anion Gap Cancelled, BUN Cancelled, Creatinine Cancelled, Estim Creat Clear Calc Cancelled, Est GFR (MDRD) Af Amer Cancelled, Est GFR (MDRD) Non-Af Cancelled, BUN/Creatinine Ratio Cancelled, Glucose Cancelled, Calcium Cancelled 05/22/22 06:03: Sodium 141, Potassium 4.0, Chloride 110 H, Carbon Dioxide 23.0, Anion Gap 8, BUN 29 H, Creatinine 1.10 H, Estim Creat Clear Calc 34.30, Est GFR (MDRD) Af Amer 62, Est GFR (MDRD) Non-Af 51 L, BUN/Creatinine Ratio 26.4 H, Glucose 133 H, Calcium 8.9 Physical Exam Narrative GENERAL: cooperative HEENT: Atraumatic; normocephalic EYES; Anicteric, Normal Conjunctiva NECK; supple, normal thyroid, RESPIRATORY: Diminished to auscultation CARDIOVASCULAR: Regular S1 S2, GI: soft, normoactive bowel sounds, : No Renal angle tenderness; EXTREMITIES: No edema, no clubbing, MUSCULOSKELETAL: no muscle wasting NEURO: Awake; no lateralizing signs. SKIN: No Rash PSYCH; Flat affect Assessment & Plan Assessment/Plan (1) ST elevation (STEMI) myocardial infarction: PLAN: Plan Patient is a 77-year-old lady who was brought with profound weakness. EKG demonstrated ST segment elevation [place] involving the inferior wall. Underwent emergency left heart catheterization with stent placement to RCA lesion 1. Acute ST segment elevation [place] ? Patient underwent emergency left heart catheterization with PCI with ZAK to LAD and RCA lesion. Subsequently started on dual antiplatelet therapy, beta- blockers and VALENTIN inhibitors. Echo ordered to assess EF ? 05/22/2022; EF 35% on 05/19/2022 2. Hypertension - Blood pressure controlled, home medications continued with dose adjustment as needed 3. Dyslipidemia -Patient is on statin therapy, 4. Nonsustained VT ? Monitored on continuous telemetry ordered BMP to correct any electrolyte abnormalities -05/21/2022; Patient had several runs of nonsustained VT and had to be placed on amiodarone cardiology consulted plans for patient to undergo repeat left heart catheterization. Patient repeat left heart catheterization demonstrated patent stents she was however found to have cardiomyopathy with EF of 25% 05/22/2022; IV amiodarone switched to p.o. 5. Chronic kidney disease stage III ? Baseline creatinine 1.2 creatinine on admission was 1.75 started on IV fluid with subsequent monitoring of electrolytes 6. DVT prophylaxis - On enoxaparin 7. Physical deconditioning - Requested for PT OT eval and social sciences department chair to assist with discharge planning Time spent in the patient's overall evaluation,decision-making process, review of diagnostic data, adjustment of management, discussion with other providers, nursing nursing and ancillary staff involved in patient's care documentation, 55 minutes Charges/Coding Visit Charges Inpatient E&M: [id number] [place] [id number]
--- NOTE | 2022-05-22 07:41 | PN.CARD_ITS ---
Subjective Subjective The patient was seen and evaluated. Appears to be doing much better today. Objective Data Vital Signs: Vital Signs Temp Pulse Resp BP Pulse Ox O2 Del Method O2 Flow Rate 97.6 F L 71 14 110/52 L 96 Room Air 2 05/22/22 04:00 05/22/22 06:00 05/22/22 06:00 05/22/22 06:00 05/22/22 06:00 05/22/22 06:00 05/21/22 19:00 Oxygen Flow Rate (L/min) 2 Oxygen Delivery Method Room Air Weight: 180 lb 12.465 oz Body Mass Index (BMI) 32.0 Intake & Output: Intake and Output for Last 24 Hours 05/20/22 05/21/22 05/22/22 23:59 23:59 23:59 Intake Total 1491.77 / 1491.77 763.83 / 763.83 Output Total 125 / 125 1050 / 1050 Balance 1366.77 / 1366.77 -286.17 / -286.17 Lab / Micro Data Result Diagrams: 05/21/22 04:25 05/22/22 06:03 Labs: Laboratory Results - last 24 hr 05/22/22 05:35: Sodium Cancelled, Potassium Cancelled, Chloride Cancelled, Carbon Dioxide Cancelled, Anion Gap Cancelled, BUN Cancelled, Creatinine Cancelled, Estim Creat Clear Calc Cancelled, Est GFR (MDRD) Af Amer Cancelled, Est GFR (MDRD) Non-Af Cancelled, BUN/Creatinine Ratio Cancelled, Glucose Cancelled, Calcium Cancelled 05/22/22 06:03: Sodium 141, Potassium 4.0, Chloride 110 H, Carbon Dioxide 23.0, Anion Gap 8, BUN 29 H, Creatinine 1.10 H, Estim Creat Clear Calc 34.30, Est GFR (MDRD) Af Amer 62, Est GFR (MDRD) Non-Af 51 L, BUN/Creatinine Ratio 26.4 H, Glucose 133 H, Calcium 8.9 Cardiology Labs/Tests 05/22/22 05:35: Sodium Cancelled, Potassium Cancelled, Chloride Cancelled, Carbon Dioxide Cancelled, Anion Gap Cancelled, BUN Cancelled, Creatinine Cancelled, Est GFR (MDRD) Af Amer Cancelled, Est GFR (MDRD) Non-Af Cancelled, BUN/Creatinine Ratio Cancelled, Glucose Cancelled, Calcium Cancelled 05/22/22 06:03: Sodium 141, Potassium 4.0, Chloride 110 H, Carbon Dioxide 23.0, Anion Gap 8, BUN 29 H, Creatinine 1.10 H, Est GFR (MDRD) Af Amer 62, Est GFR (MDRD) Non-Af 51 L, BUN/Creatinine Ratio 26.4 H, Glucose 133 H, Calcium 8.9 Rhythm: EKG: ECHO: Stress Test: Cardiac Cath: PCI: CT Surgery: Holter monitor: EPS: PPM: CXR: Chest CT Scan: Physical Exam Const alert, oriented x3 and no apparent distress General Appearance: cooperative HEENT hearing grossly normal bilaterally Head and Scalp: atraumatic Eyes EOMs intact bilaterally Neck General: normal visual inspection Chest inspection of chest normal and palpation of chest normal Resp normal respiratory effort Auscultation: clear to auscultation bilaterally Cardio regular rate, regular rhythm, S1 normal heart sound and S2 normal heart sound Jugular Venous Distention: JVD GI normal to inspection, nondistended, normoactive bowel sounds Extremity normal capillary refill and no pedal edema Peripheral Pulses: Yes pulses 2+ throughout and femoral pulses present Skin no rashes or lesions noted Neuro oriented x3 and CN's II-XII intact bilaterally Psych Appearance: grossly normal and appropriate Assessment & Plan Assessment/Plan (1) ST elevation (STEMI) myocardial infarction: PLAN: Patient with a history of ST elevation myocardial infarction status post PCI and stenting of the right coronary artery. * Plan to be to continue guideline directed medical care with statins and aspirin and antiplatelet agents. * Echocardiogram had demonstrated ejection fraction around 25%. * Cardiac catheterization performed due to recurrent arrhythmias demonstrated patency and improved flow in the right coronary system, and unchanged flow in the left anterior descending artery, and a nondominant left circumflex artery with a chronic occlusion of the obtuse marginal branch. We will continue medical therapy for this. * Discontinue heparin for now. * [place] beta-warren and VALENTIN inhibitor as tolerated (2) Essential (primary) hypertension: PLAN: Patient appears to have mildly reduced blood pressure at this time. We will continue to monitor and adjust medications as appropriate (3) Hyperlipemia: PLAN: We will institute high intensity statin. She has previously not tolerated Lipitor and Crestor * Will attempt pravastatin (4) NSVT (nonsustained ventricular tachycardia): PLAN: Patient had some runs of nonsustained VT. * Potassium and magnesium appear to be stable. We will continue intravenous amiodarone for 24 hours and then switch over to oral amiodarone. * Will reevaluate left ventricular systolic function and consider an implantable defibrillator after 42 days if patient's ejection fraction still less than 35%. Thank you for allowing me to participate in the care of your patient. Please don't hesitate to call if any issues arise.
[2022-05-22] MEDS: Lisinopril 2.5 MG Tablet PO (09:08)
[2022-05-22] MEDS: Escitalopram Oxalate 10 MG Tablet 5 MG PO (09:08)
[2022-05-22] MEDS: Carvedilol 3.125 MG TABLET PO ×2 (09:08→22:05)
[2022-05-22] MEDS: Amiodarone 200 MG Tablet PO (09:08)
[2022-05-22] MEDS: Cholecalciferol (VIT D3) 25 MCG TABLET (1,000 UNITS) 50 MCG PO (09:09)
[2022-05-22] MEDS: Aspirin E.C. 81 MG Tablet PO (09:09)
[2022-05-22] MEDS: Ensure Plus High Protein 120 ML LIQUID PO ×3 (09:09→17:14)
[2022-05-22] MEDS: TICAGRELOR 90 MG TABLET PO ×2 (09:09→22:05)
--- NOTE | 2022-05-22 10:00 | EKG12_ITS ---
Test Reason : AM EKG Blood Pressure : / mmHG Vent. Rate : 070 BPM Atrial Rate : 070 BPM P-R Int : 190 ms QRS Dur : 110 ms QT Int : 476 ms P-R-T Axes : 072 -20 118 degrees QTc Int : 514 ms Normal sinus rhythm Inferior infarct , recent T wave abnormality, consider anterolateral ischemia Prolonged QT Confirmed by SHERI PEÑALOZA, KELSEY ([id number]), desk editor RAGHAVENDRA SWANSON ([id number]) on 05/23/2022 8:51:08 AM Referred By: Edilberto Carvalho Confirmed By:KELSEY WADE MD
[2022-05-22] MEDS: MELATONIN 10 MG TABLET PO (22:05)
[2022-05-22] MEDS: Pravastatin 40 MG Tablet PO (22:05)
[2022-05-23] MEDS: proCHLORPERazine 10 MG/2 ML Vial 5 MG IV (01:36)
[2022-05-23] MEDS: 0.9% Saline Lock 10 ML Syringe IV (01:38)
[2022-05-23 03:43] VITALS: BP 117/61; PULSE 79; RESP 18; TEMP 36.6; O2SAT 95
[2022-05-23 04:23] VITALS: BMI 32.4
[2022-05-23 06:21] LABS: Anion Gap 10 (5-15); BUN 35 mg/dL (7-18); BUN/Creat Ratio 30.4 RATIO (10-20); Calcium,Total 8.4 mg/dL (8.5-10.1); Chloride 108 mmol/L (98-107); Creatinine, Serum 1.15 mg/dL (0.55-1.02); EST Glomerular Filtration Rate 48 mL/min (>60); Est Glom Filt Rate - Afr Amer 59 mL/min (>60); Estimated Creatinine Clearance 32.81 ml/min; Glucose 112 mg/dL (74-106); Potassium 3.8 mmol/L (3.5-5.1); Sodium Level 140 mmol/L (136-145)
[2022-05-23 07:29] VITALS: O2SAT 97
[2022-05-23] MEDS: Cholecalciferol (VIT D3) 25 MCG TABLET (1,000 UNITS) 50 MCG PO (08:17)
[2022-05-23] MEDS: Carvedilol 3.125 MG TABLET PO (08:18)
[2022-05-23] MEDS: TICAGRELOR 90 MG TABLET PO (08:18)
[2022-05-23] MEDS: Escitalopram Oxalate 10 MG Tablet 5 MG PO (08:19)
[2022-05-23] MEDS: Lisinopril 2.5 MG Tablet PO (08:19)
[2022-05-23] MEDS: Amiodarone 200 MG Tablet PO (08:19)
[2022-05-23] MEDS: Aspirin E.C. 81 MG Tablet PO (08:24)
--- NOTE | 2022-05-23 08:32 | PN.CARD_ITS ---
Subjective Subjective Patient seen and evaluated. Doing much better. Objective Data Vital Signs: Vital Signs Temp Pulse Resp BP Pulse Ox O2 Del Method O2 Flow Rate 97.9 F 79 18 117/61 97 Room Air 2 05/23/22 03:43 05/23/22 03:43 05/23/22 03:43 05/23/22 03:43 05/23/22 07:29 05/23/22 07:29 05/21/22 19:00 Oxygen Flow Rate (L/min) 2 Oxygen Delivery Method Room Air Weight: 182 lb 15.739 oz Body Mass Index (BMI) 32.4 Intake & Output: Intake and Output for Last 24 Hours 05/21/22 05/22/22 05/23/22 23:59 23:59 23:59 Intake Total 763.83 / 763.83 620.00 / 860.00 240 / 240 Output Total 1050 / 1050 Balance -286.17 / -286.17 620.00 / 860.00 240 / 240 Lab / Micro Data Result Diagrams: 05/21/22 04:25 05/23/22 05:30 Labs: Laboratory Results - last 24 hr 05/23/22 05:30: Sodium 140, Potassium 3.8, Chloride 108 H, Carbon Dioxide 22.0, Anion Gap 10, BUN 35 H, Creatinine 1.15 H, Estim Creat Clear Calc 32.81, Est GFR (MDRD) Af Amer 59 L, Est GFR (MDRD) Non-Af 48 L, BUN/Creatinine Ratio 30.4 H, Glucose 112 H, Calcium 8.4 L Cardiology Labs/Tests 05/23/22 05:30: Sodium 140, Potassium 3.8, Chloride 108 H, Carbon Dioxide 22.0, Anion Gap 10, BUN 35 H, Creatinine 1.15 H, Est GFR (MDRD) Af Amer 59 L, Est GFR (MDRD) Non-Af 48 L, BUN/Creatinine Ratio 30.4 H, Glucose 112 H, Calcium 8.4 L Rhythm: EKG: ECHO: Stress Test: Cardiac Cath: PCI: CT Surgery: Holter monitor: EPS: PPM: CXR: Chest CT Scan: Physical Exam Const alert, oriented x3 and no apparent distress General Appearance: cooperative HEENT hearing grossly normal bilaterally Head and Scalp: atraumatic Eyes EOMs intact bilaterally Neck General: normal visual inspection Chest inspection of chest normal and palpation of chest normal Resp normal respiratory effort Auscultation: clear to auscultation bilaterally Cardio regular rate, regular rhythm, S1 normal heart sound and S2 normal heart sound Jugular Venous Distention: JVD GI normal to inspection, nondistended, normoactive bowel sounds Extremity normal capillary refill and no pedal edema Peripheral Pulses: Yes pulses 2+ throughout and femoral pulses present Skin no rashes or lesions noted Neuro oriented x3 and CN's II-XII intact bilaterally Psych Appearance: grossly normal and appropriate Assessment & Plan Assessment/Plan (1) ST elevation (STEMI) myocardial infarction: PLAN: Patient with a history of ST elevation myocardial infarction status post PCI and stenting of the right coronary artery. * Plan to be to continue guideline directed medical care with statins and aspirin and antiplatelet agents. * Echocardiogram had demonstrated ejection fraction around 25%. * Cardiac catheterization performed due to recurrent arrhythmias demonstrated patency and improved flow in the right coronary system, and unchanged flow in the left anterior descending artery, and a nondominant left circumflex artery with a chronic occlusion of the obtuse marginal branch. We will continue medical therapy for this. * [place] beta-warren and VALENTIN inhibitor as tolerated (2) Essential (primary) hypertension: PLAN: Patient appears to have mildly reduced blood pressure at this time. We will continue to monitor and adjust medications as appropriate (3) Hyperlipemia: PLAN: We will institute high intensity statin. She has previously not tolerated Lipitor and Crestor * Will attempt pravastatin (4) NSVT (nonsustained ventricular tachycardia): PLAN: Patient had some runs of nonsustained VT. * Potassium and magnesium appear to be stable. We will continue oral amiodarone.. * Will reevaluate left ventricular systolic function and consider an implantable defibrillator after 42 days if patient's ejection fraction still less than 35%. Thank you for allowing me to participate in the care of your patient. Please don't hesitate to call if any issues arise.
[2022-05-23 09:45] VITALS: BP 123/56; PULSE 80; RESP 16; TEMP 37.2; O2SAT 95
--- NOTE | 2022-05-23 10:31 | DS.PCM_ITS ---
Providers Date of Admission: 05/19/22 Date of Discharge: 05/23/22 Primary Care Physician: Dr. Carlos Lawrence, DO Consultations 05/19/22 17:23 Consult: Cardiology Routine Consulting Provider: Edilberto Carvalho Reason for Consult: STEMI EMERGENT Consult: Yes MD Notified: Yes Date Notified: 05/19/22 Time Notified: 16:04 Method of Notification: Verbal Reason For Visit: STEMI Diagnosis Discharge Diagnosis (1) ST elevation (STEMI) myocardial infarction: Status: Acute Code(s): I21.3 - ST elevation (STEMI) myocardial infarction of unspecified site (2) Essential (primary) hypertension: Status: Chronic Code(s): I10 - Essential (primary) hypertension (3) Hyperlipemia: Status: Chronic Code(s): E78.5 - Hyperlipidemia, unspecified (4) NSVT (nonsustained ventricular tachycardia): Status: Acute Code(s): I47.29 - Other ventricular tachycardia Plan Patient is a 77-year-old lady who was brought with profound weakness. EKG demonstrated ST segment elevation [place] involving the inferior wall. Underwent emergency left heart catheterization with stent placement to RCA lesion 1. Acute ST segment elevation [place] ? Patient underwent emergency left heart catheterization with PCI with ZAK to LAD and RCA lesion. Subsequently started on dual antiplatelet therapy, beta- blockers and PHIL inhibitors. Echo ordered to assess EF ? 05/22/2022; EF 35% on 05/19/2022 2. Hypertension - Blood pressure controlled, home medications continued with dose adjustment as needed 3. Dyslipidemia -Patient is on statin therapy, 4. Nonsustained VT ? Monitored on continuous telemetry ordered BMP to correct any electrolyte abnormalities -05/21/2022; Patient had several runs of nonsustained VT and had to be placed on amiodarone cardiology consulted plans for patient to undergo repeat left heart catheterization. Patient repeat left heart catheterization demonstrated patent stents she was however found to have cardiomyopathy with EF of 25% 05/22/2022; IV amiodarone switched to p.o. 5. Chronic kidney disease stage III ? Baseline creatinine 1.2 creatinine on admission was 1.75 started on IV fluid with subsequent monitoring of electrolytes 6. DVT prophylaxis - On enoxaparin 7. Physical deconditioning - Requested for PT OT eval and social science research assistant to assist with discharge planning Time spent in the patient's overall evaluation,decision-making process, review of diagnostic data, adjustment of management, discussion with other providers, nursing nursing and ancillary staff involved in patient's care documentation, 35 minutes Medications at Discharge Home Medications aspirin 81 mg tablet,delayed release (Adult Low Dose Aspirin) 81 mg PO DAILY #100 tabs 12/23/19 ergocalciferol (vitamin D2) 50 mcg (2,000 unit) capsule 50 mcg PO DAILY Check with primary doctor 10/02/21 amiodarone 200 mg tablet 200 mg PO DAILY #90 tabs 05/23/22 carvedilol 3.125 mg tablet 3.125 mg PO BID #180 tabs 05/23/22 lisinopril 2.5 mg tablet 2.5 mg PO DAILY #90 tabs 05/23/22 nitroglycerin 0.4 mg sublingual tablet 0.4 mg sublingual Q5M PRN Cardiac/Chest Pain #30 tabs 05/23/22 pravastatin 40 mg tablet 40 mg PO QHS #90 tabs 05/23/22 ticagrelor 90 mg tablet (Brilinta) 90 mg PO BID #180 tabs 05/23/22 Hospital Course Procedures 2-D Echocardiogram and Cardiac catheterization Summary of Care Provided Minutes Spent on Discharge: 35 Physical Exam Narrative GENERAL: cooperative HEENT: Atraumatic; normocephalic EYES; Anicteric, Normal Conjunctiva NECK; supple, normal thyroid, RESPIRATORY: Diminished to auscultation CARDIOVASCULAR: Regular S1 S2, GI: soft, normoactive bowel sounds, : No Renal angle tenderness; EXTREMITIES: No edema, no clubbing, MUSCULOSKELETAL: no muscle wasting NEURO: Awake; no lateralizing signs. SKIN: No Rash PSYCH; Flat affect Weight / BMI Weight Weight: 83 kg Body Mass Index (BMI) 32.4 ABG / Lab / Microbiology Data Result Diagrams: 05/21/22 04:25 05/23/22 05:30 Laboratory: Laboratory Results - last 24 hr 05/23/22 05:30: Sodium 140, Potassium 3.8, Chloride 108 H, Carbon Dioxide 22.0, Anion Gap 10, BUN 35 H, Creatinine 1.15 H, Estim Creat Clear Calc 32.81, Est GFR (MDRD) Af Amer 59 L, Est GFR (MDRD) Non-Af 48 L, BUN/Creatinine Ratio 30.4 H, Glucose 112 H, Calcium 8.4 L D/C Instructions Discharge Diet: No restrictions Discharge Activity: Return to Normal Activity Call your doctor if you observe: Fever of 101 or Higher, Shortness of breath, Fainting spells and Chest pain Meaningful Use Info Meaningful Use Diagnoses (Choose all that apply): AMI AMI/Post PCI/Angioplasty Aspirin given w/in 24hrs of arrival?: Yes ASA at discharge?: Yes Antiplatelet Therapy at Discharge:: Yes Statins at discharge?: Yes Phil/ARB at discharge?: Yes Beta Sahra at discharge?: Yes Done w/ Acute NJ measure.: Yes Documented LVEF (%): 35 Discharge Plan Admission Admit Date/Time: 05/19/22 16:00 Attending Provider: Tito Restrepo Primary Care Provider: Carlos Lawrence Consulting Providers: Kiet Ybarra ; Edilberto Carvalho Discharge Orders/Prescriptions Prescriptions: New pravastatin 40 mg Tablet 40 mg PO QHS Qty: 90 0RF amiodarone 200 mg Tablet 200 mg PO DAILY Qty: 90 0RF carvedilol 3.125 mg Tablet 3.125 mg PO BID Qty: 180 0RF nitroglycerin 0.4 mg Tablet, Sublingual 0.4 mg sublingual Q5M PRN (Reason: Cardiac/Chest Pain) Qty: 30 0RF lisinopril 2.5 mg Tablet 2.5 mg PO DAILY Qty: 90 0RF Brilinta 90 mg Tablet 90 mg PO BID Qty: 180 3RF Continued aspirin [Adult Low Dose Aspirin] 81 mg tablet,delayed release (DR/EC) 81 mg PO DAILY Qty: 100 2RF ergocalciferol (vitamin D2) 50 mcg (2,000 unit) capsule 50 mcg PO DAILY Discontinued biotin 5 mg Tablet 5 mg PO DAILY Referrals / Follow Up: Carlos Lawrence DO [Primary Care Provider] - 06/06/22 3:30 pm Hannah Disla PA [Med Staff - [facility]] - 06/06/22 9:30 am Disposition Disposition (needs filled in before D/C Order can be placed): Home, Self Care Charges/Coding Visit Charges Inpatient E&M: 60576 Disch Hosp >30min
[2022-05-23 14:00] VITALS: BP 118/62; PULSE 73; RESP 16; TEMP 36.6; O2SAT 100
== END 2022-05-23 14:03 | disposition home or self-care (01) | DRG 247 ==
LOC: ED 15:20 → ICU 15:38 → PCU 05-20 14:03 → ICU 05-21 02:31 → PCU 05-23 09:43 → ICU 05-23 11:20
PROVIDERS: Hospitalist; Internal Medicine Cardiovascular Disease; Emergency Provider Emergency Medicine; PCP Family Medicine; Referring Provider Specialist; Visit Provider Internal Medicine
DX: I21.3 ST elevation (STEMI) myocardial infarction of unspecified site (principal); I42.9 Cardiomyopathy, unspecified; I47.29 Other ventricular tachycardia; N18.32 Chronic kidney disease, stage 3b; E78.5 Hyperlipidemia, unspecified; I25.10 Atherosclerotic heart disease of native coronary artery without angina pectoris; I12.9 Hypertensive chronic kidney disease with stage 1 through stage 4 chronic kidney disease, or unspecified chronic kidney disease; R53.83 Other fatigue; Z79.82 Long term (current) use of aspirin; Z95.5 Presence of coronary angioplasty implant and graft
CPT/HCPCS: 36415; 71045; 80048; 80053; 80061; 82962; 83036; 83735; 83880; 84100; 84484; 85025; 85027; 85610; 85730; 92941; 92973; 93005; 93306; 93454; 93458; 94762; 97162; 97166; 97802; 99152; 99153; 99285; C1757; C1894; J7030; J7040; Q9957; Q9967; A4216; C1725; C1769; C1874; C1887; C8929; C9606; J1327; J1940; J2405

== ENCOUNTER → 2022-06-05 | Outpatient (CLI) | payer MEDICARE, SELFPAY ==
--- NOTE | 2022-06-05 12:53 | PCM.CR.HP2 ---
CR - History & Physical - General Arrival date:: 06/05/22 Arrival time:: 12:58 Date of Referral:: 05/23/22 Date of CR Evaluation:: 06/05/22 Referring Physician: Dr. Mitch Lebron Primary Diagnosis: ST Elevated [place], PCI w/coronary stenting - History of Present Cardiac Event Onset Date: Enter Onset Date of cardiac illnesses in Comment field below Acute Myocardial Infarction within 12 months:: Yes - ST Elevated AZ 05/19/2022 PTCA or coronary stenting:: Yes - Stent 05/19/2022 Type of Symptoms:: Weakness and fatigue, some nausea when taking a shower, chest pain during breaksfas called 911 Interventions with present event:: Heart cath procedure w/coronary stenting Were there any complications?: none - Sleep Disorder Evaluation Hx of Sleep Apnea: Yes Do you snore loudly (louder than talking or can be heard through closed doors)?: Yes Do you often feel tired/ fatigued/ sleepy during daytime?: Yes Has anyone observed you stop breathing during sleep?: No History of Hypertension (for STOP score): Yes STOP Results: Positive - Medications Home Medications: Ambulatory Orders Medication Instructions Recorded aspirin 81 mg tablet,delayed 81 mg PO DAILY #100 tabs 12/23/19 release (Adult Low Dose Aspirin) ergocalciferol (vitamin D2) 50 mcg 50 mcg PO DAILY Check with primary 10/02/21 (2,000 unit) capsule doctor amiodarone 200 mg tablet 200 mg PO DAILY #90 tabs 05/23/22 carvedilol 3.125 mg tablet 3.125 mg PO BID #180 tabs 05/23/22 lisinopril 2.5 mg tablet 2.5 mg PO DAILY #90 tabs 05/23/22 nitroglycerin 0.4 mg sublingual 0.4 mg sublingual Q5M PRN 05/23/22 tablet Cardiac/Chest Pain #30 tabs pravastatin 40 mg tablet 40 mg PO QHS #90 tabs 05/23/22 ticagrelor 90 mg tablet (Brilinta) 90 mg PO BID #180 tabs 05/23/22 - Allergies Allergies/Adverse Reactions: Allergies atorvastatin [From Lipitor] Allergy (Verified 10/02/21 10:56) Unknown Iodinated Contrast Media [contrast dye - iodinated] Allergy (Verified 05/19/22 15:22) Itching rosuvastatin [From Crestor] Allergy (Verified 10/02/21 10:56) Unknown antibiotic Allergy (Mild, Uncoded 10/02/21 10:56) up set stomach Advanced Directives - Advanced Directives Power of Environmental Field Professional: Yes - Daughter is POA for Health Care Living Will: Yes Advance Directives Information Provided: No Advance Directives on File: Yes DNR Order?:: No - MOLST See MOLST form: No Past Medical History - Covid-19 Screening Fever: No Unexplained muscle aches: No - Has Fibromyalgia but states the symptoms are better since her AZ. Current respiratory symptoms: No Upper respiratory infections symptoms: Yes - Seasonal Allergies/Hay Fever Gastro-intestinal symptoms: No Kda-Uddv-Hgsfmh symptoms: No Has tested positive for COVID-19 in last 30 days: No Date of testin06/05/22 - Had initial vaccinations x 2 and 1-booster Had contact w/person w/symptoms or Covid-19 (+) last 14 days: No Has High Risk Exposures ID'd by Health dept/Inf Control team: No 65 years or older:: Yes Lives in Assisted Living facility:: No Has a chronic lung disease or moderate to severe asthma:: No Has a serious heart condition:: No Immunocompromised:: No Severely obese (Body Mass Index of 40 or higher):: No Diabetic:: No Has chronic kidney disease undergoing dialysis:: Yes Has liver disease:: No - Past Medical Illness Medical History: Past Medical History (Last Updated 05/19/22 @ 18:04 by Cornelia Schwartz) Atherosclerotic heart disease of [place] coronary artery without angina pectoris I25.10 Back problem M53.9 Essential (primary) hypertension I10 Fatigue R53.83 Fibromyalgia M79.7 history of bone fracture History of kidney stones Z87.442 Hyperlipemia E78.5 Left ventricular systolic dysfunction, chronic I51.9 Stage 3b chronic kidney disease (CKD) N18.32 Vision problem H54.7 - Past Surgical History Surgical History: Past Surgical History (Last Updated 05/23/22 @ 10:18 by Rosa Hicks) History of coronary artery stent placement Onset Date: ~05/19/22 Z95.5 Thrombectomy and ZAK to mid RCA-Resolute [place] RX ZAK 4.0x38mm and Resolute [place] RX ZAK 3.5x22mm History of hysterectomy Z90.710 History of left heart catheterization Onset Date: 07/20/18 Z98.890 History of right breast biopsy Z98.890 Hx of colonoscopy Z98.890 2006 removal of renal calculi - Family History Summary Family History: Family History (Last Reviewed 05/19/22 @ 16:[address] Kiet Ybarra, DO) Father CAD (coronary artery disease) Cancer Mother Myocardial infarction CAD (coronary artery disease) Brother Myocardial infarction CAD (coronary artery disease) Other Arthritis Heart disease High cholesterol Social History - Smoking History Smoking Status: Never smoker Hx Tobacco Use: No Hx Smoking Exposure: No - Alcohol Use Alcohol Usage: Yes - 4 ounces wine daily, but hasnt had any recently. - Substance Abuse Hx Substance Use: No - Occupation Occupation (List type of work in comments):: Retired - Hobbies, Recreation, Social Activities Hobbies: Sewing - knit tatiana, Reading - word [employer] puzzles Recreational Activities: I am able to engage in most, but not all activities Social Environment - Status Marital Status: - Current Living Arrangements Living Environment:: Alone, Spouse - Children How many children do you have?: 4 Do any of your children live nearby?: Yes - Safety Do you feel safe in your surroundings?: Yes - Assistance Do you need any assistance at home?: no Review of Systems - Review of Systems Hints: Right click = Denies ([place]). Left click = Reports ([place]) Review of Present Symptoms: Reports: Shortness of Breath at Rest - has to sit quite awhile until it goes away., Shortness of Breath with Exertion, Fatigue, Heart Arrhythmia/Irregularities - Ventiricular Tachycardia pre-emptive to the [place], Appetite - Normal. Denies: Angina, Dizziness/Lightheadedness, Appetite - Special Diet, Sleep - Normal - usually sleeps about 5 hours, toolk care of her for years adn never really had a good nights sleeo, but feels it is coming back a little bit now. - Pain Is Patient Pain Free?: Yes Pain Location: none Pain Level: 0/10 Risk Factor Assessment - Chief Complaint Chief Complaint: [address] Walker who presents to cardiac rehab today following recent STEMI and PCI intervention here at [facility] on 05/19/2022 - Vital Signs Temperature: 97.9 F Respiratory Rate: 18 Pulse Ox: 97 Blood Pressure: 117/61 - Pulse Pulse Rate: 79 Pulse Rhythm: Regular - Hypertension Blood Pressure Sitting - Left Arm: 117/61 - Blood Cholesterol/Lipids Total Cholesterol (mg/dL) Goal = less than 200 mg/dL: 213 HDL Cholesterol (mg/dL) Goal = less than 40 mg/dL: 39 LDL Cholesterol (mg/dL) Goal = less than 70 mg/dL: 130 Triglycerides (mg/dL) Goal = less than 150 mg/dL: 219 - Obesity Height: 5 ft 3 in Weight:: 182 lb Weight in Pounds: 182.0 lbs Weight Source: [facility] ([facility]) Body Mass Index (BMI): 32.2 Nutritional Referral for Obesity: Yes - Risk Stratification Risk Guidelines: Lowest Risk: Risk Factor for Smoking, Risk Factor for Diabetes, Risk Factor for Hypertension - 117/61, Risk Factor for Sedentary Lifestyle, Risk Factor for Depression, Moderate Risk: Risk Factor for Dyslipidemia, Risk Factor for Sedentary Lifestyle, Highest Risk: Risk Factor for Obesity - 32.2 - Family History Family History: Family History (Last Reviewed 05/19/22 @ 16:[address] Kiet Ybarra, DO) Father CAD (coronary artery disease) Cancer Mother Myocardial infarction CAD (coronary artery disease) Brother Myocardial infarction CAD (coronary artery disease) Other Arthritis Heart disease High cholesterol Motivation - Motivation to Participate On a scale of 1 to 10, how prepared are you to commit to attending program?: 10 What do you see as barriers to successfully being able to complete the program?: none What do you see as the benefits of succesfully completing the program? In other words, what do you hope to get out of participating in the program?: feel good, be healthier, get strength back Are there issues you are dealing with that will interfere with completing the program?: no Do you have a spouse or signficant other, family or friends who will help support you to complete the program?: yes
--- NOTE | 2022-06-05 12:54 | PCM.CR.ITP ---
Diagnosis - General Information Admitting Diagnosis: STEMI, PCI w/coronary stenting Secondary Diagnosis: Hypertension, Hyperlipidemia, CKD Stage III Personal Learning Style:: Audio/Visual, Written Barriers to Learning: Vision Impairment Stage of change r/t lifestyle modifications:: Action Gave educational material for:: Treating Heart Disease, Emotions & Heart Disease, Stress Management & Relaxation, Sleep Disorders & Heart Disease, How The Heart Works, What it means to have Heart Disease, How Coronary Artery Disease is Diagnosed, Heart Procedures, What Heart Medications Do, Risk Factors & Modifications, Living an Active Life, Nutrition - Education/Goals Individual Counseling: Initial Assessment: Abnormal Cholesterol Levels, High Blood Pressure, Overweight/Obesity Cardiac Rehabilitation Goals: 1. Maintain the individual as the primary focus of care. 2. To improve the patient's quality of life. 3. Identification of cardiac risk factors and provide cardiac risk factor management. 4. Enhance the psychosocial status of the patient. 5. Reconditioning enough to allow the patient to resume customary activities. 6. Control symptoms of cardiac disease Personal Goals: Initial Assessment: Improve energy level, Participate in home exercise program, Improve knowledge of cardiac disease, Improve muscle strength and endurance, Control risk factors (learn risk factor modification) Scale for measuring improvement of personal goals: Enter appropriate number in Comments. 2 = Unchanged. 3 = Slightly Better. 4 = Moderate Improvement. 5 = Met my Goal - Diagnosis & Disease Process Outcomes/Goals: Pt IDs own risk factors & lifestyle modifications by Session 10, Verbalizes symptoms of angina & response by session 3., Pt independently manages Plan/Interventions: Assist Pt to ID & engage in lifestyle modification to reduce CVD risk, Instruct on individual risk factors, Review symptoms of angina & emergency actions - Safety Referral to Physical Therapy: No Referral to [facility] Case Management: No Fall Risk Assessed:: Yes Assistive Devices:: None Exercise - Initial Assessment - Visit Date of Eval: 06/05/22 Session #:: 0 - Pre-cardiac Rehab evaluation Mets: Pre-: >5 METS for 30 minutes by discharge - Physician Prescribed Exercise Modalities: Treadmill, NuStep, SciFit, Lateral [place] Frequency: 3x/week for 12 weeks [36 sessions] Intensity: 60-80% of age predicted maximum heart rate reserve Duration: 30 - 45 minutes Current METSs:: 3.0 Target Heart Rate:: 91-106 Resting Blood Pressure: 117/61 EKG Type: NSR - Outcomes & Goals Goals:: Verbalizes understanding of THR, RPE & goal METS by session 6, Documents in home exercise log/reports 30 min aerobic 5 day/wk by DC, Demonstrates accurate pulse taking by DC - Intervention & Plan Exercise Program Goals: Instruct on personal THR & RPE, Instruct on MET level & personal MET goal, Show patient to take own pulse /validate performance until accurate, Instruct on home exercise - Physical Activity Home Exercise Physical Activity - Home Exercise: Safe Exercise, Warm-up, Self-monitoring, Cool-Down, Home Exercise > 30 min Daily, Sitting Time <3 hours/daily - Outcomes & Goals Outcomes/Goals: Demonstrates correct Warm-up/exercise Cool-Down (S3) if = 2.5 METs, Verbalizes symptoms of exercise intolerance by Session 3 (S3), Demonstrate safe equipment use (S3) & follows exercise prescrition (6) - Intervention & Plan Plan/Intervention: Instruct warm-up & cool-down if exercising at > 2 METs, Instruct on symptoms of exercise intolerance & actions to take, Instruct & monitor on saf, Assess intial functional capacity & safety risk Nutrition - Initial Assessment - Program Goals Nutrition Program Goals: LDL <100 optimal. 100 - 129 Near optimal. 130 - 159 Borderline High. 160 - 189 High. Total Cholesterol <200 desirable. 200 - 239 Borderline High. >/= 240 High. HDL < 40 Low >/=60 High. Triglycerides <150 desirable. <199 optimal. VlDL 5 - 40. HgbA1C <7%. BMI <25 Patient has diagnosis of Hyperlipidemia (ICD E78)?: Yes - Visit Date of Assessment:: 06/05/22 Session #:: 0 - Pre-cardiac rehab evaluation - Cholesterol/Lipids (Other Core Measures) Triglycerides (mg/dL): 219 Total Cholesterol (mg/dL): 213 LDL Cholesterol (mg/dL): 130 HDL Cholesterol (mg/dL): 39 Determine presence & major risk factors that modify LDL goal: Hypertension or hypertensive medication, Low HDL cholesterol <40 mg/dL*, Age men > 45 years; women >/= 55 years Outcomes/Goals: Pt IDs own risk factors & lifestyle modifications by Session 10, Verbalizes symptoms of angina & response by session 3., Pt independently manages Intervention/Plan: Instruct on personal lipid levels & lipid goals/NCEP guidelines, Instruct on cholesterol Referral to dietitian:: Yes - Medical Nutrition Therapy - Diabetes (Other Core Measures) Diabetes Type: Not Applicable - Weight Mgt (Other Care) Not Applicable: No Height: 5 ft 3 in Weight:: 182 lb BMI: 32.2 Diagnosis Overweight/Obesity BMI> 30% ICD-10 E66: Yes Diagnosis High BMI/Morbid Obesity BMI> 35% ICD-10 Z68: No Outcomes/Goals: Pt sets, maintains & shows weight loss goal & trend during rehab Intervention/Plan: Instruct on ideal BMI & set weight loss goal w/patient, Assist pt to ID & incorporate diet changes for weight loss by S9, Refer to Structured Weight Loss program as appropriate, Encourage goal of using 250-300dcal per session for weight loss - Healthy Eating Habits Will attend diet classes:: Yes Outcomes/Goals:: Consume diet rich in vegs,fruits,whole grain/high fiber,fish,lean meat, Limit sat/trans fats,cholesterol & added salts & sugars Intervention/Plan:: Assess current eating habits - Education Gave educational materials for:: Healthy eating Nutrition - 30-Day Assessment Nutrition - 60-Day Assessment Nutrition - 90-Day Assessment Nutrition - Final Assessment Core - Initial Assessment - Visit Date of Eval: 06/05/22 Session #:: 0 - Pre-cardiac rehab evaluation - Medication Compliance Preventative Medication(s):: Aspirin, Ticagrelor/P2Y12 inhibitor, Statin/lipid, Beta warren H/O mental health issues: depression, anxiety, or addiction?: No Doesn?t believe in the benefits of treatment?: No Believes medications are unnecessary or harmful?: No Has a concern about medication side effects?: No Expresses concern over the cost of medications?: No Outcomes/Goals: Verbalizes medications,desired effect & common side effects @ DC, Pt self-reports following medication regimen, Keeps card in wallet w/medications listed by DC Interventions/plans: Instruct on medication effects & side effects, Review medication list w/patient every two weeks, Instruct importance of taking meds as ordered & assist problem solving - Tobacco Use Tobacco Use: Non-smoker - Hypertension Hypertension Diagnosis:: Hypertension ICD-10 I10 Resting Blood Pressure:: 117/61 [place] [employer] Hypertension Guidelines: [place] [employer] Hypertension Guidelines. Normal BP Less than 120/80. Elevated BP 120/80. Hypertension Stage 1: BP 130-139/80-89. Hypertesnion Stage 2: BP 140 or higher/90 or higher. Hypertension Crisis: BP higher than 180/120 Outcomes/Goals: Able to verbalize/achieve optimal blood pressure <130/80, Incorporates diet changes & exercise for blood pressure control by DC Interventions/plan: Instruct on optimal blood pressure, hypertension & medications, Instruct on effects of sodium, alcohol, stress, exercise &hypertension - Tobacco Cessation Referral Smoking Cessation Referral:: No Individual Education/Counseling:: No Education Schedule Given:: Yes Core - 30-Day Assessment Core - 60-Day Assessment Core - 90 Day Assessment Core - Final Assessment Psychosocial - Initial Assess - VIsit Date of Eval: 06/05/22 Session #:: 0 - Pre-cardiac rehab evaluation Not Applicable: Yes History of previous Mental disease:: No - Psychosocial Test Tool Used:: [employer] Dragon QOL Cardiac, PHQ-9 Questionnaire phq-9 Severity: Severity. 1-4 Minimal Depression. 5-9 Mild Depression. 10-14 Moderate Depression. 15-19 Moderately Sever Depression. 20-27 Severe Depression. Rule: - Referral to Behavioral Health PS - Interventions: Yes Attend Stress Management Classes, No Referral to Behavioral Health if PHQ-9 score >9:, No Referral to [facility], No Referral to Physician if PHQ-9 if score is 5-9: - Outcomes/Goals: See list Psychosocial Outcomes/Goals:: ID's personal stressors & 2 strategies to manage stress by discharge - Intervention/Plan: See List Interventions/Plan:: Assess stressors,coping strategies & signs of derpression on admission, Instruct/assist pt to develop coping & personal stress Mgt strategies, Instruct patient to recognize signs & symptoms of depression, Instruct patient to recog Psychosocial - 30-Day Assess Psychosocial - 60-Day Assess Psychosocial - 90-Day Assess Psychosocial - Final Assessmen Patient Health Questionnaire Initial Assessment 1. Little interest or pleasure in doing things: Several days 2. Feeling down, depressed, or hopeless: Not at all 3. Trouble falling or staying asleep, or sleeping too much: Nearly every day 4. Feeling tired or having little energy: Nearly every day 5. Poor appetite or overeating: More than half the days 6. Feeling bad about yourself -- or that you are a failure or have let yourself or your family down: Several days 7. Trouble concentrating on things, such as reading the newspaper or watching television: Nearly every day 8. Moving or speaking so slowly that other people could have noticed. Or the opposite - being so fidgety or restless that you have been moving around a lot more than usual: More than half the days 9. Thoughts that you would be better off , or of hurting yourself in some way: Not at all How difficult have these problems made it for you to do your work, take care of things at home, or get along with other people?: Not difficult at all Total Score: 15 MALA-Q SV Test - Statements CAD is a disease of the arteries in the heart: False Examples of risk factors for heart disease: True Angina is chest pain or discomfort: True The benefits of resistance training include: True Eating more meat and dairy products: I Don't Know Anti-platelet medications such as aspirin are important: True The only effective way to manage stress: False An exercise warm-up slowly increases heart rate: I Don't Know Prepared, processed foods usually have high sodium: True Depression is common after a heart attack: I Don't Know The statin medications lower cholesterol: I Don't Know To control blood pressure, lower the amount of sodium: True If someone gets chest discomfort during walking: False Transfats are partially hydrogenated vegetable oils: True Sleep apnea that is not treated increases the risk: I Don't Know To control cholesterol, one should become a vegetarian: False Someone knows if he/she is exercising at the right level: I Don't Know Diabetes cannot be prevented with exercise & health eating: True Stress is a large risk for heart attack: True A diet that can help lower blood pressure is rich in: True - Total Score Total Correct Responses: 13 Self-Efficacy Initial Assessment We would like to know how confident you are in doing certain activities. Please select your confidence level for:: Select your confidence level for the following using the scale 1-10 where 1 is not at all confident and 10 is totally confident. Your score is the average of all 6 responses. Fatigue: How confident are you that you can keep the fatigue caused by your disease from interfering with the things you want to do? Select Number: 5 Physical Discomfort or Pain: How confident are you that you can keep the physical discomfort or pain of your disease from interfering with the things you want to do? Select Number: 6 Emotional Distress: How confident are you that you can keep the emotional distress caused by your disease from interfering with the things you want to do? Select Number: 9 Other Symptoms or Health Problems: How confident are you that you can keep other symptoms or health problems from interfering with the things you want to do? Select Number: 9 Different Tasks and Activities: How confident are you that you can do the different tasks and activities needed to manage your health condition so as to reduce your need to see a doctor? Select Number: 9 Medication: How confident are you that you can do things other than just taking medication to reduce how much your illness affects your everyday life? Select Number: 9 Total Score:: 7 Nutrition Survey - Nutrition Survey Initial Have you lost >10 lbs over the past 2 months without trying?: No Are you following a special diet at home for diabetes, low fat, or low salt?: Yes Are you interested in meeting with a dietitian for help understanding your diet?: No Do you eat less than 3 meals a day?: No Do you eat fatty meats (gayle, sausage, ribs, etc), fried foods, desserts, large amounts of salad dressings, margarine, butter, or cheese most days?: No Do you have food allergies? [Enter types in comment field]: No Do you eat in restaurants more than 3 times a week?: No Do you season food with salt, seasoning salt, or garlic salt?: No Do you used canned, boxed, frozen meals, or soups, seasoning packets?: No Total Score:: 1
[2022-06-05 13:36] VITALS: BP 117/61; PULSE 79; RESP 18; TEMP 36.6; O2SAT 97; BMI 32.2
[2022-06-05 14:15] VITALS: BP 117/61; BMI 32.2
== END | disposition home or self-care (01) ==
LOC: CR 12:46
PROVIDERS: PCP Family Medicine; Visit Provider Internal Medicine Cardiovascular Disease
DX: I21.3 ST elevation (STEMI) myocardial infarction of unspecified site (principal); Z99.2 Dependence on renal dialysis; I47.20 Ventricular tachycardia, unspecified; N18.32 Chronic kidney disease, stage 3b; R06.02 Shortness of breath; R53.83 Other fatigue; I49.9 Cardiac arrhythmia, unspecified; Z95.5 Presence of coronary angioplasty implant and graft

== ENCOUNTER 2022-06-28 13:00 | Outpatient (RCR) | payer MEDICARE, SELFPAY ==
[2022-06-05 14:15] VITALS: BMI 32.2
== END 2022-06-30 23:59 ==
LOC: CR 13:00
PROVIDERS: Referring Provider Internal Medicine Cardiovascular Disease; Visit Provider Internal Medicine Cardiovascular Disease
DX: I25.10 Atherosclerotic heart disease of native coronary artery without angina pectoris (principal); I21.3 ST elevation (STEMI) myocardial infarction of unspecified site; Z95.5 Presence of coronary angioplasty implant and graft
CPT/HCPCS: 93798

== ENCOUNTER → 2022-07-22 | Outpatient (CLI) | payer MEDICARE, SELFPAY ==
[2022-07-01 09:49] VITALS: BMI 30.2
--- NOTE | 2022-07-22 13:37 | ECHOD_ITS ---
Reason For Study: DCMP Procedure This was a 2D Doppler, Color Flow transthoracic echocardiogram. Myocardial strain analysis was performed in this exam to aid in the assessment of cardiac function. Exam performed in department. Left Ventricle Normal LV size. Moderate segmental systolic dysfunction (see wall motion). The estimated ejection fraction is 35 %. There are regional wall motion abnormalities as specified. Mid-Inferior: Akinetic. Infero-Basal: Akinetic. Posterior-Basal: Akinetic. Mid-Posterior: Akinetic. Mid-Lateral : Hypokinetic. Anterio-Basal: Hypokinetic. Right Ventricle Normal RV size. Normal systolic function. Atria The left atrium is mildly enlarged. Normal right atrium. Mitral Valve There is mild to moderate mitral annular calcification. Mild-Moderate (1-2+) eccentric mitral valve insufficiency. Tricuspid Valve Normal tricuspid valve. Mild to moderate (1-2+) tricuspid valve insufficiency. Pulmonary artery systolic pressure is 41 mmHg. Aortic Valve Trisinus/trileaflet aortic valve. Mild (1+) aortic valve insufficiency. Pulmonic Valve Normal pulmonic valve. Mild (1+) pulmonic valve insufficiency. Great Vessels Normal aortic root. The pulmonary artery is normal size. Inferior vena cava collapse with respiration. Pericardium/Pleural No pericardial effusion. MMode/2D Measurements & Calculations LVIDd: 6.0 cm IVSd: 1.6 cm Ao root diam: 2.9 cm LVIDs: 5.2 cm LVPWd: 0.95 cm RVDd: 2.5 cm FS: 12.7 % LAV(MOD-bp): 59.0 ml LVAd ap4: 32.1 cm2 SV(MOD-sp4): 35.1 ml LAV(MOD-bp) Indexed: 33.1 ml/m2 LVLd ap4: 7.3 cm LAV(MOD-sp2): 44.1 ml EDV(MOD-sp4): 114.3 ml LAV(MOD-sp4): 71.2 ml EDV(sp4-el): 120.3 ml LVAs ap4: 24.4 cm2 LVLs ap4: 6.1 cm ESV(MOD-sp4): 79.2 ml ESV(sp4-el): 83.2 ml EF(MOD-sp4): 30.7 % EF(sp4-el): 30.9 % SV(sp4-el): 37.1 ml LA A4 area: 21.1 cm2 LA dimension(2D): 4.2 cm RA A4 area: 10.9 cm2 Time Measurements MV dec time: 0.19 sec Doppler Measurements & Calculations MV E max selina: 127.4 cm/sec MV V2 max: 128.2 cm/sec MV dec slope: 795.8 cm/sec2 MV A max selina: 91.0 cm/sec MV max P.6 mmHg MV E/A: 1.4 MV V2 mean: 71.8 cm/sec MV mean P.3 mmHg MV V2 VTI: 39.9 cm Ao V2 max: 123.9 cm/sec AI max selina: 360.8 cm/sec LV V1 max: 88.0 cm/sec Ao max P.1 mmHg AI max P.1 mmHg LV V1 max P.1 mmHg Ao V2 mean: 87.0 cm/sec LV V1 mean P.7 mmHg Ao mean P.4 mmHg AI dec slope: 153.5 cm/sec2 LV V1 mean: 60.5 cm/sec Ao V2 VTI: 33.3 cm AI P1/2t: 688.4 msec LV V1 VTI: 22.9 cm AV (velocity ratio): 0.69 MR max selina: 546.9 cm/sec PA V2 max: 81.1 cm/sec TR max selina: 308.1 cm/sec MR max P.6 mmHg PA V2 mean: 60.1 cm/sec TR max P.0 mmHg ECHO/Echo Complete Interpretation Summary Normal LV size. Moderate segmental systolic dysfunction (see wall motion). The estimated ejection fraction is 35 %. Mild-Moderate (1-2+) eccentric mitral valve insufficiency. Mild to moderate (1-2+) tricuspid valve insufficiency. Mild (1+) aortic valve insufficiency. The global longitudinal strain = -12.5% (abnormal). Compared to previous study, the left ventricular systolic function is the same.. Ordering Physician: Hannah Disla Referring Physician: Hannah Disla Performed By: Jamila Santiago RCS
== END | disposition home or self-care (01) ==
LOC: CVS 13:35
PROVIDERS: PCP Family Medicine; Referring Provider Physician Assistant Medical; Visit Provider Physician Assistant Medical
DX: I25.5 Ischemic cardiomyopathy (principal)
CPT/HCPCS: 93306

== ENCOUNTER 2022-07-31 13:00 | Outpatient (RCR) | payer MEDICARE, SELFPAY ==
[2022-06-05 14:15] VITALS: BMI 32.2
--- NOTE | 2022-07-01 09:38 | PCM.CR.ITP ---
Diagnosis Exercise - 30-day Assessment - Visit Date of Eval: 07/01/22 Session #:: 10 - Physician Prescribed Exercise Modalities: Treadmill, NuStep, Lateral [place] Frequency: 3x/week for 12 weeks [36 sessions] Intensity: 60-80% of age predicted maximum heart rate reserve Current METSs:: 4 Target Heart Rate:: 91-106 Current RPE:: 10-12 Maximum Excercise HR:: 100 Resting Blood Pressure: 130/60 Maximum Exercise Blood Pressure: 136/82 EKG Type: NSR T wave inversion w/ occas PVC and rare PAC - Outcomes & Goals Goals:: Verbalizes understanding of THR, RPE & goal METS by session 6, Documents in home exercise log/reports 30 min aerobic 5 day/wk by DC, Demonstrates accurate pulse taking by DC, Other additional outcome/goals: see below - Intervention & Plan Exercise Program Goals: Instruct on personal THR & RPE, Instruct on MET level & personal MET goal, Show patient to take own pulse /validate performance until accurate, Instruct on home exercise, Other additional plan/int - 30-day Reassessments 30 day Reassessments:: Progressing - THR explained - Physical Activity Home Exercise Physical Activity - Home Exercise: Safe Exercise, Warm-up, Self-monitoring, Cool-Down, Home Exercise > 30 min Daily, Sitting Time <3 hours/daily - Outcomes & Goals Outcomes/Goals: Demonstrates correct Warm-up/exercise Cool-Down (S3) if = 2.5 METs, Verbalizes symptoms of exercise intolerance by Session 3 (S3), Demonstrate safe equipment use (S3) & follows exercise prescrition (6), Other: See below - Intervention & Plan Plan/Intervention: Instruct warm-up & cool-down if exercising at > 2 METs, Instruct on symptoms of exercise intolerance & actions to take, Instruct & monitor on saf, Assess intial functional capacity & safety risk, Other See below - 30-day Reassessments 30 day Reassessments:: Progressing - warm up explained Nutrition - Initial Assessment Nutrition - 30-Day Assessment - Program Goals Nutrition Program Goals: LDL <100 optimal. 100 - 129 Near optimal. 130 - 159 Borderline High. 160 - 189 High. Total Cholesterol <200 desirable. 200 - 239 Borderline High. >/= 240 High. HDL < 40 Low >/=60 High. Triglycerides <150 desirable. <199 optimal. VlDL 5 - 40. HgbA1C <7%. BMI <25 Patient has diagnosis of Hyperlipidemia (ICD E78)?: Yes - Visit Date of Assessment:: 07/01/22 Session #:: 10 - Cholesterol/Lipids (Other Core Measures) Determine presence & major risk factors that modify LDL goal: Hypertension or hypertensive medication, Low HDL cholesterol <40 mg/dL*, Family history of premature CHD in Male < 55 years: female <65 yearsFa, Age men > 45 years; women >/= 55 years Outcomes/Goals: Pt IDs own risk factors & lifestyle modifications by Session 10, Verbalizes symptoms of angina & response by session 3., Pt independently manages, Other Additional Outcomes/Goals: Intervention/Plan: Advocate for lipid panel cholesterol medication if applicable, Instruct on personal lipid levels & lipid goals/NCEP guidelines, Instruct on cholesterol, Other additional plan/int Referral to dietitian:: No - pt declined 30-day Reassessments:: Progressing - risk factors explained - Diabetes (Other Core Measures) Diabetes Type: Not Applicable - Weight Mgt (Other Care) Height: 5 ft 3 in Weight:: 77.564 kg BMI: 30.2 Diagnosis Overweight/Obesity BMI> 30% ICD-10 E66: Yes Diagnosis High BMI/Morbid Obesity BMI> 35% ICD-10 Z68: No Outcomes/Goals: Pt sets, maintains & shows weight loss goal & trend during rehab, Other additional outcomes/goals Intervention/Plan: Instruct on ideal BMI & set weight loss goal w/patient, Assist pt to ID & incorporate diet changes for weight loss by S9, Refer to Structured Weight Loss program as appropriate, Encourage goal of using 250-300dcal per session for weight loss, Other additional plan/interventions 30 day Reassessments:: Progressing - pt will attend nutrition class - Healthy Eating Habits Will attend diet classes:: Yes Outcomes/Goals:: Consume diet rich in vegs,fruits,whole grain/high fiber,fish,lean meat, Limit sat/trans fats,cholesterol & added salts & sugars, Other additional outcome/goals: Intervention/Plan:: Assess current eating habits, Other Additional plan/interventions 30-day Reassessments:: Progressing - pt will attend nutrition class - Education Gave educational materials for:: Signs & symptoms of hypoglycemia, Signs & symptoms of hyperglycemia, Relate diabetes to coronary artery disease, Healthy eating Nutrition - 60-Day Assessment Nutrition - 90-Day Assessment Nutrition - Final Assessment Core - Initial Assessment Core - 30-Day Assessment - Visit Date of Eval: 07/01/22 Session #:: 10 - Medication Compliance Preventative Medication(s):: Aspirin, Ticagrelor/P2Y12 inhibitor, Statin/lipid, Beta warren H/O mental health issues: depression, anxiety, or addiction?: No Doesn?t believe in the benefits of treatment?: No Believes medications are unnecessary or harmful?: No Has a concern about medication side effects?: No Expresses concern over the cost of medications?: No Outcomes/Goals: Verbalizes medications,desired effect & common side effects @ DC, Pt self-reports following medication regimen, Keeps card in wallet w/medications listed by DC, Other additional outcome/goals: Interventions/plans: Instruct on medication effects & side effects, Review medication list w/patient every two weeks, Instruct importance of taking meds as ordered & assist problem solving, Other additional 30-day Reassessments:: Progressing - encouraged to take meds - Tobacco Use Tobacco Use: Non-smoker - Hypertension Hypertension Diagnosis:: Hypertension ICD-10 I10 Resting Blood Pressure:: 130/60 [place] [employer] Hypertension Guidelines: [place] [employer] Hypertension Guidelines. Normal BP Less than 120/80. Elevated BP 120/80. Hypertension Stage 1: BP 130-139/80-89. Hypertesnion Stage 2: BP 140 or higher/90 or higher. Hypertension Crisis: BP higher than 180/120 Peak Exercise Blood Pressure:: 136/82 Outcomes/Goals: Able to verbalize/achieve optimal blood pressure <130/80, Incorporates diet changes & exercise for blood pressure control by DC, Other additional outcomes/goals Interventions/plan: Instruct on optimal blood pressure, hypertension & medications, Instruct on effects of sodium, alcohol, stress, exercise &hypertension, Other additional plan/interventions 30 day Reassessments:: Progressing - encouraged to take meds - Tobacco Cessation Referral Smoking Cessation Referral:: No Individual Education/Counseling:: No Education Schedule Given:: Yes Core - 60-Day Assessment Core - 90 Day Assessment Core - Final Assessment Psychosocial - Initial Assess Psychosocial - 30-Day Assess - VIsit Date of Eval: 07/01/22 Session #:: 10 History of previous Mental disease:: No Psychosocial - 60-Day Assess Psychosocial - 90-Day Assess Psychosocial - Final Assessmen Patient Health Questionnaire 30-Day Re-eval Assessment 1. Little interest or pleasure in doing things: Several days 2. Feeling down, depressed, or hopeless: Not at all 3. Trouble falling or staying asleep, or sleeping too much: Nearly every day 4. Feeling tired or having little energy: Nearly every day 5. Poor appetite or overeating: More than half the days 6. Feeling bad about yourself -- or that you are a failure or have let yourself or your family down: Several days 7. Trouble concentrating on things, such as reading the newspaper or watching television: Nearly every day 8. Moving or speaking so slowly that other people could have noticed. Or the opposite - being so fidgety or restless that you have been moving around a lot more than usual: More than half the days 9. Thoughts that you would be better off , or of hurting yourself in some way: Not at all How difficult have these problems made it for you to do your work, take care of things at home, or get along with other people?: Not difficult at all Total Score: 15 Self-Efficacy 30-Day Re-eval Assessment We would like to know how confident you are in doing certain activities. Please select your confidence level for:: Select your confidence level for the following using the scale 1-10 where 1 is not at all confident and 10 is totally confident. Your score is the average of all 6 responses. Fatigue: How confident are you that you can keep the fatigue caused by your disease from interfering with the things you want to do? Select Number: 5 Physical Discomfort or Pain: How confident are you that you can keep the physical discomfort or pain of your disease from interfering with the things you want to do? Select Number: 6 Emotional Distress: How confident are you that you can keep the emotional distress caused by your disease from interfering with the things you want to do? Select Number: 9 Other Symptoms or Health Problems: How confident are you that you can keep other symptoms or health problems from interfering with the things you want to do? Select Number: 9 Different Tasks and Activities: How confident are you that you can do the different tasks and activities needed to manage your health condition so as to reduce your need to see a doctor? Select Number: 9 Medication: How confident are you that you can do things other than just taking medication to reduce how much your illness affects your everyday life? Select Number: 9 Total Score:: 7 Nutrition Survey
[2022-07-01 09:49] VITALS: BP 130/60; BP 136/82; BMI 30.2
== END 2022-07-31 23:59 ==
LOC: CR 13:00
PROVIDERS: Referring Provider Internal Medicine Cardiovascular Disease; Visit Provider Internal Medicine Cardiovascular Disease
DX: I25.10 Atherosclerotic heart disease of native coronary artery without angina pectoris (principal); I21.3 ST elevation (STEMI) myocardial infarction of unspecified site; Z95.5 Presence of coronary angioplasty implant and graft
CPT/HCPCS: 93798

== ENCOUNTER 2022-08-30 13:00 | Outpatient (RCR) | payer MEDICARE, SELFPAY ==
[2022-07-01 09:49] VITALS: BMI 30.2
[2022-08-01 00:38] VITALS: BP 130/60; BP 136/82
--- NOTE | 2022-08-02 08:56 | CR.ITP_ITS ---
Diagnosis Exercise - 60-day Assessment - Visit Date of Eval: 08/02/22 Session #:: 23 - Physician Prescribed Exercise Modalities: Treadmill, NuStep, Lateral [place] Frequency: 3x/week for 12 weeks [36 sessions] Intensity: 60-80% of age predicted maximum heart rate reserve Current METSs:: 4.5 Target Heart Rate:: 91-106 Current RPE:: 11 Maximum Excercise HR:: 86 Resting Blood Pressure: 120/68 Maximum Exercise Blood Pressure: 140/68 EKG Type: SB to ST with rare PVC. T wave inversion at rest - Outcomes & Goals Goals:: Verbalizes understanding of THR, RPE & goal METS by session 6, Documents in home exercise log/reports 30 min aerobic 5 day/wk by DC, Demonstrates accurate pulse taking by DC, Other additional outcome/goals: see below - Intervention & Plan Exercise Program Goals: Instruct on personal THR & RPE, Instruct on MET level & personal MET goal, Show patient to take own pulse /validate performance until accurate, Instruct on home exercise, Other additional plan/int - 30-day Reassessments 30 day Reassessments:: Progressing - pulse taking demonstrated - Physical Activity Home Exercise Physical Activity - Home Exercise: Safe Exercise, Warm-up, Self-monitoring, Cool-Down, Home Exercise > 30 min Daily, Sitting Time <3 hours/daily - Outcomes & Goals Outcomes/Goals: Demonstrates correct Warm-up/exercise Cool-Down (S3) if = 2.5 METs, Verbalizes symptoms of exercise intolerance by Session 3 (S3), Demonstrate safe equipment use (S3) & follows exercise prescrition (6), Other: See below - Intervention & Plan Plan/Intervention: Instruct warm-up & cool-down if exercising at > 2 METs, Instruct on symptoms of exercise intolerance & actions to take, Instruct & monitor on saf, Assess intial functional capacity & safety risk, Other See below - 30-day Reassessments 30 day Reassessments:: Progressing - warm up encouraged Nutrition - Initial Assessment Nutrition - 30-Day Assessment Nutrition - 60-Day Assessment - Program Goals Nutrition Program Goals: LDL <100 optimal. 100 - 129 Near optimal. 130 - 159 Borderline High. 160 - 189 High. Total Cholesterol <200 desirable. 200 - 239 Borderline High. >/= 240 High. HDL < 40 Low >/=60 High. Triglycerides <150 desirable. <199 optimal. VlDL 5 - 40. HgbA1C <7%. BMI <25 Patient has diagnosis of Hyperlipidemia (ICD E78)?: Yes - Visit Date of Assessment:: 08/02/22 Session #:: 23 - Cholesterol/Lipids (Other Core Measures) Determine presence & major risk factors that modify LDL goal: Hypertension or hypertensive medication, Low HDL cholesterol <40 mg/dL*, Family history of premature CHD in Male < 55 years: female <65 yearsFa, Age men > 45 years; women >/= 55 years Outcomes/Goals: Pt IDs own risk factors & lifestyle modifications by Session 10, Verbalizes symptoms of angina & response by session 3., Pt independently manages, Other Additional Outcomes/Goals: Intervention/Plan: Advocate for lipid panel cholesterol medication if applicable, Instruct on personal lipid levels & lipid goals/NCEP guidelines, Instruct on cholesterol, Other additional plan/int Referral to dietitian:: No - declined 30-day Reassessments:: Progressing - encouraged to do her bloodwork - Diabetes (Other Core Measures) Diabetes Type: Not Applicable - Weight Mgt (Other Care) Height: 5 ft 3 in Weight:: 77.337 kg BMI: 30.2 Diagnosis Overweight/Obesity BMI> 30% ICD-10 E66: Yes Diagnosis High BMI/Morbid Obesity BMI> 35% ICD-10 Z68: No Outcomes/Goals: Pt sets, maintains & shows weight loss goal & trend during rehab, Other additional outcomes/goals Intervention/Plan: Instruct on ideal BMI & set weight loss goal w/patient, Assist pt to ID & incorporate diet changes for weight loss by S9, Refer to Structured Weight Loss program as appropriate, Encourage goal of using 250- 300dcal per session for weight loss, Other additional plan/interventions 30 day Reassessments:: Progressing - pt will attend nutrition class - Healthy Eating Habits Will attend diet classes:: Yes Outcomes/Goals:: Consume diet rich in vegs,fruits,whole grain/high fiber,fish,lean meat, Limit sat/trans fats,cholesterol & added salts & sugars, Other additional outcome/goals: Intervention/Plan:: Assess current eating habits, Other Additional plan/interventions 30-day Reassessments:: Progressing - pt will attend nutrition class - Education Gave educational materials for:: Signs & symptoms of hypoglycemia, Signs & symptoms of hyperglycemia, Relate diabetes to coronary artery disease, Healthy eating Nutrition - 90-Day Assessment Nutrition - Final Assessment Core - Initial Assessment Core - 30-Day Assessment Core - 60-Day Assessment - Visit Date of Eval: 08/02/22 Session #:: 23 - Medication Compliance Preventative Medication(s):: Aspirin, Ticagrelor/P2Y12 inhibitor, Statin/lipid, Beta warren Doesn?t believe in the benefits of treatment?: No Believes medications are unnecessary or harmful?: No Has a concern about medication side effects?: No Expresses concern over the cost of medications?: No Outcomes/Goals: Verbalizes medications,desired effect & common side effects @ DC, Pt self-reports following medication regimen, Keeps card in wallet w/medications listed by DC, Other additional outcome/goals: Interventions/plans: Instruct on medication effects & side effects, Review medication list w/patient every two weeks, Instruct importance of taking meds as ordered & assist problem solving, Other additional 30-day Reassessments:: Progressing - pt encouraged to take meds - Tobacco Use Tobacco Use: Non-smoker - Hypertension Hypertension Diagnosis:: Hypertension ICD-10 I10 Resting Blood Pressure:: 120/68 [place] [employer] Hypertension Guidelines: [place] [employer] Hypertension Guidelines. Normal BP Less than 120/80. Elevated BP 120/80. Hypertension Stage 1: BP 130-139/80-89. Hypertesnion Stage 2: BP 140 or higher/90 or higher. Hypertension Crisis: BP higher than 180/120 Peak Exercise Blood Pressure:: 140/68 Outcomes/Goals: Able to verbalize/achieve optimal blood pressure <130/80, Incorporates diet changes & exercise for blood pressure control by DC, Other additional outcomes/goals Interventions/plan: Instruct on optimal blood pressure, hypertension & medications, Instruct on effects of sodium, alcohol, stress, exercise &hypertension, Other additional plan/interventions 30 day Reassessments:: Progressing - pt encouraged to take meds - Tobacco Cessation Referral Smoking Cessation Referral:: No Individual Education/Counseling:: No Education Schedule Given:: Yes Core - 90 Day Assessment Core - Final Assessment Psychosocial - Initial Assess Psychosocial - 30-Day Assess Psychosocial - 60-Day Assess - VIsit Date of Eval: 08/02/22 Session #:: 23 History of previous Mental disease:: No Psychosocial - 90-Day Assess Psychosocial - Final Assessmen Patient Health Questionnaire 60-Day Re-eval Assessment 1. Little interest or pleasure in doing things: Several days 2. Feeling down, depressed, or hopeless: Not at all 3. Trouble falling or staying asleep, or sleeping too much: Nearly every day 4. Feeling tired or having little energy: Nearly every day 5. Poor appetite or overeating: More than half the days 6. Feeling bad about yourself -- or that you are a failure or have let yourself or your family down: Several days 7. Trouble concentrating on things, such as reading the newspaper or watching television: Nearly every day 8. Moving or speaking so slowly that other people could have noticed. Or the opposite - being so fidgety or restless that you have been moving around a lot more than usual: More than half the days 9. Thoughts that you would be better off , or of hurting yourself in some way: Not at all How difficult have these problems made it for you to do your work, take care of things at home, or get along with other people?: Not difficult at all Total Score: 15 Self-Efficacy 60-Day Re-eval Assessment We would like to know how confident you are in doing certain activities. Please select your confidence level for:: Select your confidence level for the following using the scale 1-10 where 1 is not at all confident and 10 is totally confident. Your score is the average of all 6 responses. Fatigue: How confident are you that you can keep the fatigue caused by your disease from interfering with the things you want to do? Select Number: 5 Physical Discomfort or Pain: How confident are you that you can keep the physical discomfort or pain of your disease from interfering with the things you want to do? Select Number: 6 Emotional Distress: How confident are you that you can keep the emotional distress caused by your disease from interfering with the things you want to do? Select Number: 9 Other Symptoms or Health Problems: How confident are you that you can keep other symptoms or health problems from interfering with the things you want to do? Select Number: 9 Different Tasks and Activities: How confident are you that you can do the different tasks and activities needed to manage your health condition so as to reduce your need to see a doctor? Select Number: 9 Medication: How confident are you that you can do things other than just taking medication to reduce how much your illness affects your everyday life? Select Number: 9 Total Score:: 7 Nutrition Survey
[2022-08-02 09:08] VITALS: BP 120/68; BP 140/68; BMI 30.2
--- NOTE | 2022-08-28 11:39 | CR.ITP_ITS ---
Diagnosis Diagnosis & Disease Process Outcomes/Goals: Pt IDs own risk factors & lifestyle modifications by Session 10, Verbalizes symptoms of angina & response by session 3., Pt independently manages and Other Additional Outcomes/Goals: Exercise - Initial Assessment Visit Date of Eval: 08/28/22 Session #:: 34 Physician Prescribed Exercise Modalities: Treadmill, NuStep and Lateral [place] Frequency: 3x/week for 12 weeks [36 sessions] Intensity: 60-80% of age predicted maximum heart rate reserve Current METSs:: 4.5 Target Heart Rate:: 91-106 Current RPE:: 12-13 Maximum Excercise HR:: 87 Resting Blood Pressure: 136/62 Maximum Exercise Blood Pressure: 140/70 EKG Type: SB to NSR. Inverted Twave at rest Outcomes & Goals Goals:: Verbalizes understanding of THR, RPE & goal METS by session 6, Documents in home exercise log/reports 30 min aerobic 5 day/wk by DC, Demonstrates accurate pulse taking by DC and Other additional outcome/goals: see below Intervention & Plan Exercise Program Goals: Instruct on personal THR & RPE, Instruct on MET level & personal MET goal, Show patient to take own pulse /validate performance until accurate, Instruct on home exercise and Other additional plan/int Physical Activity Home Exercise Physical Activity - Home Exercise: Safe Exercise, Warm-up, Self-monitoring, Cool-Down, Home Exercise > 30 min Daily and Sitting Time <3 hours/daily Outcomes & Goals Outcomes/Goals: Demonstrates correct Warm-up/exercise Cool-Down (S3) if = 2.5 METs, Verbalizes symptoms of exercise intolerance by Session 3 (S3), Demonstrate safe equipment use (S3) & follows exercise prescrition (6) and Other: See below Intervention & Plan Plan/Intervention: Instruct warm-up & cool-down if exercising at > 2 METs, Instruct on symptoms of exercise intolerance & actions to take, Instruct & monitor on saf, Assess intial functional capacity & safety risk and Other See below Exercise - 30-day Assessment Visit Date of Eval: 08/28/22 Session #:: 34 Physician Prescribed Exercise Modalities: Treadmill, NuStep and Lateral [place] Frequency: 3x/week for 12 weeks [36 sessions] Intensity: 60-80% of age predicted maximum heart rate reserve Current METSs:: 4.5 Target Heart Rate:: 91-106 Current RPE:: 12-13 Maximum Excercise HR:: 87 Resting Blood Pressure: 136/62 Maximum Exercise Blood Pressure: 140/70 EKG Type: SB to NSR. Inverted Twave at rest Outcomes & Goals Goals:: Verbalizes understanding of THR, RPE & goal METS by session 6, Documents in home exercise log/reports 30 min aerobic 5 day/wk by DC, Demonstrates accurate pulse taking by DC and Other additional outcome/goals: see below Intervention & Plan Exercise Program Goals: Instruct on personal THR & RPE, Instruct on MET level & personal MET goal, Show patient to take own pulse /validate performance until accurate, Instruct on home exercise and Other additional plan/int 30-day Reassessments 30 day Reassessments:: Progressing Reassessment Notes & Comments:: Physical Activity Home Exercise Physical Activity - Home Exercise: Safe Exercise, Warm-up, Self-monitoring, Cool-Down, Home Exercise > 30 min Daily and Sitting Time <3 hours/daily Outcomes & Goals Outcomes/Goals: Demonstrates correct Warm-up/exercise Cool-Down (S3) if = 2.5 METs, Verbalizes symptoms of exercise intolerance by Session 3 (S3), Demonstrate safe equipment use (S3) & follows exercise prescrition (6) and Other: See below Intervention & Plan Plan/Intervention: Instruct warm-up & cool-down if exercising at > 2 METs, Instruct on symptoms of exercise intolerance & actions to take, Instruct & monitor on saf, Assess intial functional capacity & safety risk and Other See below 30-day Reassessments 30 day Reassessments:: Met Reassessment Notes & Comments:: Exercise - 60-day Assessment Visit Date of Eval: 08/28/22 Session #:: 34 Physician Prescribed Exercise Modalities: Treadmill, NuStep and Lateral [place] Frequency: 3x/week for 12 weeks [36 sessions] Intensity: 60-80% of age predicted maximum heart rate reserve Current METSs:: 4.5 Target Heart Rate:: 91-106 Current RPE:: 12-13 Maximum Excercise HR:: 87 Resting Blood Pressure: 136/62 Maximum Exercise Blood Pressure: 140/70 EKG Type: SB to NSR. Inverted Twave at rest Outcomes & Goals Goals:: Verbalizes understanding of THR, RPE & goal METS by session 6, Documents in home exercise log/reports 30 min aerobic 5 day/wk by DC, Demonstrates accurate pulse taking by DC and Other additional outcome/goals: see below Intervention & Plan Exercise Program Goals: Instruct on personal THR & RPE, Instruct on MET level & personal MET goal, Show patient to take own pulse /validate performance until accurate, Instruct on home exercise and Other additional plan/int 30-day Reassessments 30 day Reassessments:: Progressing Reassessment Notes & Comments:: Physical Activity Home Exercise Physical Activity - Home Exercise: Safe Exercise, Warm-up, Self-monitoring, Cool-Down, Home Exercise > 30 min Daily and Sitting Time <3 hours/daily Outcomes & Goals Outcomes/Goals: Demonstrates correct Warm-up/exercise Cool-Down (S3) if = 2.5 METs, Verbalizes symptoms of exercise intolerance by Session 3 (S3), Demonstrate safe equipment use (S3) & follows exercise prescrition (6) and Other: See below Intervention & Plan Plan/Intervention: Instruct warm-up & cool-down if exercising at > 2 METs, Instruct on symptoms of exercise intolerance & actions to take, Instruct & monitor on saf, Assess intial functional capacity & safety risk and Other See below 30-day Reassessments 30 day Reassessments:: Met Reassessment Notes & Comments:: Exercise - 90-day Assessment Visit Date of Eval: 08/28/22 Session #:: 34 Physician Prescribed Exercise Modalities: Treadmill, NuStep and Lateral [place] Frequency: 3x/week for 12 weeks [36 sessions] Intensity: 60-80% of age predicted maximum heart rate reserve Current METSs:: 4.5 Target Heart Rate:: 91-106 Current RPE:: 12-13 Maximum Excercise HR:: 87 Resting Blood Pressure: 136/62 Maximum Exercise Blood Pressure: 140/70 EKG Type: SB to NSR. Inverted Twave at rest Outcomes & Goals Goals:: Verbalizes understanding of THR, RPE & goal METS by session 6, Documents in home exercise log/reports 30 min aerobic 5 day/wk by DC, Demonstrates accurate pulse taking by DC and Other additional outcome/goals: see below Intervention & Plan Exercise Program Goals: Instruct on personal THR & RPE, Instruct on MET level & personal MET goal, Show patient to take own pulse /validate performance until accurate, Instruct on home exercise and Other additional plan/int 30-day Reassessments 30 day Reassessments:: Progressing Reassessment Notes & Comments:: Physical Activity Home Exercise Physical Activity - Home Exercise: Safe Exercise, Warm-up, Self-monitoring, Cool-Down, Home Exercise > 30 min Daily and Sitting Time <3 hours/daily Outcomes & Goals Outcomes/Goals: Demonstrates correct Warm-up/exercise Cool-Down (S3) if = 2.5 METs, Verbalizes symptoms of exercise intolerance by Session 3 (S3), Demonstrate safe equipment use (S3) & follows exercise prescrition (6) and Other: See below Intervention & Plan Plan/Intervention: Instruct warm-up & cool-down if exercising at > 2 METs, Instruct on symptoms of exercise intolerance & actions to take, Instruct & monitor on saf, Assess intial functional capacity & safety risk and Other See below 30-day Reassessments 30 day Reassessments:: Met Reassessment Notes & Comments:: Exercise - Final/Discharge Visit Date of Eval: 08/28/22 Session #:: 34 Physician Prescribed Exercise Modalities: Treadmill, NuStep and Lateral [place] Frequency: 3x/week for 12 weeks [36 sessions] Intensity: 60-80% of age predicted maximum heart rate reserve Current METSs:: 4.5 Target Heart Rate:: 91-106 Current RPE:: 12-13 Maximum Excercise HR:: 87 Resting Blood Pressure: 136/62 Maximum Exercise Blood Pressure: 140/70 EKG Type: SB to NSR. Inverted Twave at rest Outcomes & Goals Goals:: Verbalizes understanding of THR, RPE & goal METS by session 6, Documents in home exercise log/reports 30 min aerobic 5 day/wk by DC, Demonstrates accurate pulse taking by DC and Other additional outcome/goals: see below Intervention & Plan Exercise Program Goals: Instruct on personal THR & RPE, Instruct on MET level & personal MET goal, Show patient to take own pulse /validate performance until accurate, Instruct on home exercise and Other additional plan/int 30-day Reassessments 30 day Reassessments:: Progressing Reassessment Notes & Comments:: Physical Activity Home Exercise Physical Activity - Home Exercise: Safe Exercise, Warm-up, Self-monitoring, Cool-Down, Home Exercise > 30 min Daily and Sitting Time <3 hours/daily Outcomes & Goals Outcomes/Goals: Demonstrates correct Warm-up/exercise Cool-Down (S3) if = 2.5 METs, Verbalizes symptoms of exercise intolerance by Session 3 (S3), Demonstrate safe equipment use (S3) & follows exercise prescrition (6) and Other: See below Intervention & Plan Plan/Intervention: Instruct warm-up & cool-down if exercising at > 2 METs, Instruct on symptoms of exercise intolerance & actions to take, Instruct & monitor on saf, Assess intial functional capacity & safety risk and Other See below 30-day Reassessments 30 day Reassessments:: Met Reassessment Notes & Comments:: Nutrition - Initial Assessment Program Goals Nutrition Program Goals Patient has diagnosis of Hyperlipidemia (ICD E78)?: Yes Visit Date of Assessment:: 08/28/22 Session #:: 34 Cholesterol/Lipids (Other Core Measures) Determine presence & major risk factors that modify LDL goal: Hypertension or hypertensive medication, Low HDL cholesterol <40 mg/dL*, Family history of premature CHD in Male < 55 years: female <65 yearsFa and Age men > 45 years; women >/= 55 years Outcomes/Goals: Pt IDs own risk factors & lifestyle modifications by Session 10, Verbalizes symptoms of angina & response by session 3., Pt independently manages and Other Additional Outcomes/Goals: Intervention/Plan: Advocate for lipid panel cholesterol medication if applicable, Instruct on personal lipid levels & lipid goals/NCEP guidelines, Instruct on cholesterol and Other additional plan/int Referral to dietitian:: No Diabetes (Other Core Measures) Diabetes Type: Not Applicable Weight Mgt (Other Care) Height: 5 ft 3 in Weight:: 168 lb 8 oz BMI: 29.8 Outcomes/Goals: Pt sets, maintains & shows weight loss goal & trend during rehab and Other additional outcomes/goals Intervention/Plan: Instruct on ideal BMI & set weight loss goal w/patient, Assist pt to ID & incorporate diet changes for weight loss by S9, Refer to Structured Weight Loss program as appropriate, Encourage goal of using 250- 300dcal per session for weight loss and Other additional plan/interventions Healthy Eating Habits Will attend diet classes:: Yes Intervention/Plan:: Assess current eating habits and Other Additional plan/interventions Education Gave educational materials for:: Signs & symptoms of hypoglycemia, Signs & symptoms of hyperglycemia, Relate diabetes to coronary artery disease and Healthy eating Nutrition - 30-Day Assessment Program Goals Nutrition Program Goals Patient has diagnosis of Hyperlipidemia (ICD E78)?: Yes Visit Date of Assessment:: 08/28/22 Session #:: 34 Cholesterol/Lipids (Other Core Measures) Determine presence & major risk factors that modify LDL goal: Hypertension or hypertensive medication, Low HDL cholesterol <40 mg/dL*, Family history of premature CHD in Male < 55 years: female <65 yearsFa and Age men > 45 years; women >/= 55 years Outcomes/Goals: Pt IDs own risk factors & lifestyle modifications by Session 10, Verbalizes symptoms of angina & response by session 3., Pt independently manages and Other Additional Outcomes/Goals: Intervention/Plan: Advocate for lipid panel cholesterol medication if applicable, Instruct on personal lipid levels & lipid goals/NCEP guidelines, Instruct on cholesterol and Other additional plan/int Referral to dietitian:: No 30-day Reassessments:: Met Reassessment Notes & Comments:: Diabetes (Other Core Measures) Diabetes Type: Not Applicable 30-day Reassessments:: Met Weight Mgt (Other Care) Height: 5 ft 3 in Weight:: 168 lb 8 oz BMI: 29.8 Outcomes/Goals: Pt sets, maintains & shows weight loss goal & trend during rehab and Other additional outcomes/goals Intervention/Plan: Instruct on ideal BMI & set weight loss goal w/patient, Assist pt to ID & incorporate diet changes for weight loss by S9, Refer to Structured Weight Loss program as appropriate, Encourage goal of using 250- 300dcal per session for weight loss and Other additional plan/interventions 30 day Reassessments:: Progressing Reassessment Notes & Comments:: Healthy Eating Habits Will attend diet classes:: Yes Intervention/Plan:: Assess current eating habits and Other Additional plan/interventions 30-day Reassessments:: Met Education Gave educational materials for:: Signs & symptoms of hypoglycemia, Signs & symptoms of hyperglycemia, Relate diabetes to coronary artery disease and Healthy eating Nutrition - 60-Day Assessment Program Goals Nutrition Program Goals Patient has diagnosis of Hyperlipidemia (ICD E78)?: Yes Visit Date of Assessment:: 08/28/22 Session #:: 34 Cholesterol/Lipids (Other Core Measures) Determine presence & major risk factors that modify LDL goal: Hypertension or hypertensive medication, Low HDL cholesterol <40 mg/dL*, Family history of premature CHD in Male < 55 years: female <65 yearsFa and Age men > 45 years; women >/= 55 years Outcomes/Goals: Pt IDs own risk factors & lifestyle modifications by Session 10, Verbalizes symptoms of angina & response by session 3., Pt independently manages and Other Additional Outcomes/Goals: Intervention/Plan: Advocate for lipid panel cholesterol medication if applicable, Instruct on personal lipid levels & lipid goals/NCEP guidelines, Instruct on cholesterol and Other additional plan/int Referral to dietitian:: No 30-day Reassessments:: Met Reassessment Notes & Comments:: Diabetes (Other Core Measures) Diabetes Type: Not Applicable 30-day Reassessments:: Met Weight Mgt (Other Care) Height: 5 ft 3 in Weight:: 168 lb 8 oz BMI: 29.8 Outcomes/Goals: Pt sets, maintains & shows weight loss goal & trend during rehab and Other additional outcomes/goals Intervention/Plan: Instruct on ideal BMI & set weight loss goal w/patient, Assist pt to ID & incorporate diet changes for weight loss by S9, Refer to Structured Weight Loss program as appropriate, Encourage goal of using 250- 300dcal per session for weight loss and Other additional plan/interventions 30 day Reassessments:: Met Reassessment Notes & Comments:: Healthy Eating Habits Will attend diet classes:: Yes Intervention/Plan:: Assess current eating habits and Other Additional plan/interventions 30-day Reassessments:: Met Education Gave educational materials for:: Signs & symptoms of hypoglycemia, Signs & symptoms of hyperglycemia, Relate diabetes to coronary artery disease and Healthy eating Nutrition - 90-Day Assessment Program Goals Nutrition Program Goals Patient has diagnosis of Hyperlipidemia (ICD E78)?: Yes Visit Date of Assessment:: 08/28/22 Session #:: 34 Cholesterol/Lipids (Other Core Measures) Determine presence & major risk factors that modify LDL goal: Hypertension or hypertensive medication, Low HDL cholesterol <40 mg/dL*, Family history of premature CHD in Male < 55 years: female <65 yearsFa and Age men > 45 years; women >/= 55 years Outcomes/Goals: Pt IDs own risk factors & lifestyle modifications by Session 10, Verbalizes symptoms of angina & response by session 3., Pt independently manages and Other Additional Outcomes/Goals: Intervention/Plan: Advocate for lipid panel cholesterol medication if applicable, Instruct on personal lipid levels & lipid goals/NCEP guidelines, Instruct on cholesterol and Other additional plan/int Referral to dietitian:: No 30-day Reassessments:: Met Reassessment Notes & Comments:: Diabetes (Other Core Measures) Diabetes Type: Not Applicable 30-day Reassessments:: Met Reassessment Notes & Comments:: Weight Mgt (Other Care) Height: 5 ft 3 in Weight:: 168 lb 8 oz BMI: 29.8 Outcomes/Goals: Pt sets, maintains & shows weight loss goal & trend during rehab and Other additional outcomes/goals Intervention/Plan: Instruct on ideal BMI & set weight loss goal w/patient, Assist pt to ID & incorporate diet changes for weight loss by S9, Refer to Structured Weight Loss program as appropriate, Encourage goal of using 250- 300dcal per session for weight loss and Other additional plan/interventions 30 day Reassessments:: Met Healthy Eating Habits Will attend diet classes:: Yes Intervention/Plan:: Assess current eating habits and Other Additional plan/interventions 30-day Reassessments:: Met Education Gave educational materials for:: Signs & symptoms of hypoglycemia, Signs & symptoms of hyperglycemia, Relate diabetes to coronary artery disease and Healthy eating Nutrition - Final Assessment Program Goals Nutrition Program Goals Patient has diagnosis of Hyperlipidemia (ICD E78)?: Yes Visit Date of Assessment:: 08/28/22 Session #:: 34 Cholesterol/Lipids (Other Core Measures) Determine presence & major risk factors that modify LDL goal: Hypertension or hypertensive medication, Low HDL cholesterol <40 mg/dL*, Family history of premature CHD in Male < 55 years: female <65 yearsFa and Age men > 45 years; women >/= 55 years Outcomes/Goals: Pt IDs own risk factors & lifestyle modifications by Session 10, Verbalizes symptoms of angina & response by session 3., Pt independently manages and Other Additional Outcomes/Goals: Intervention/Plan: Advocate for lipid panel cholesterol medication if applicable, Instruct on personal lipid levels & lipid goals/NCEP guidelines, Instruct on cholesterol and Other additional plan/int Referral to dietitian:: No 30-day Reassessments:: Met Reassessment Notes & Comments:: Diabetes (Other Core Measures) Diabetes Type: Not Applicable 30-day Reassessments:: Met Reassessment Notes & Comments:: Weight Mgt (Other Care) Height: 5 ft 3 in Weight:: 168 lb 8 oz BMI: 29.8 Outcomes/Goals: Pt sets, maintains & shows weight loss goal & trend during rehab and Other additional outcomes/goals Intervention/Plan: Instruct on ideal BMI & set weight loss goal w/patient, Assist pt to ID & incorporate diet changes for weight loss by S9, Refer to Structured Weight Loss program as appropriate, Encourage goal of using 250- 300dcal per session for weight loss and Other additional plan/interventions 30 day Reassessments:: Met Healthy Eating Habits Will attend diet classes:: Yes Intervention/Plan:: Assess current eating habits and Other Additional plan/interventions 30-day Reassessments:: Met Education Gave educational materials for:: Signs & symptoms of hypoglycemia, Signs & symptoms of hyperglycemia, Relate diabetes to coronary artery disease and Healthy eating Core - Initial Assessment Visit Date of Eval: 08/28/22 Session #:: 34 Medication Compliance Preventative Medication(s):: Aspirin, Ticagrelor/P2Y12 inhibitor, Statin/lipid and Beta warren H/O mental health issues: depression, anxiety, or addiction?: No Doesn?t believe in the benefits of treatment?: No Believes medications are unnecessary or harmful?: No Has a concern about medication side effects?: No Expresses concern over the cost of medications?: No Outcomes/Goals: Verbalizes medications,desired effect & common side effects @ DC, Pt self-reports following medication regimen, Keeps card in wallet w/medications listed by DC and Other additional outcome/goals: Interventions/plans: Instruct on medication effects & side effects, Review medication list w/patient every two weeks, Instruct importance of taking meds as ordered & assist problem solving and Other additional Tobacco Use Tobacco Use: Non-smoker Hypertension Hypertension Diagnosis:: Hypertension ICD-10 I10 Resting Blood Pressure:: 136/62 [employer] Hypertension Guidelines Peak Exercise Blood Pressure:: 140/70 Outcomes/Goals: Able to verbalize/achieve optimal blood pressure <130/80, Incorporates diet changes & exercise for blood pressure control by DC and Other additional outcomes/goals Interventions/plan: Instruct on optimal blood pressure, hypertension & medications, Instruct on effects of sodium, alcohol, stress, exercise &hypertension and Other additional plan/interventions Tobacco Cessation Referral Smoking Cessation Referral:: No Individual Education/Counseling:: No Education Schedule Given:: Yes Core - 30-Day Assessment Visit Date of Eval: 08/28/22 Session #:: 34 Medication Compliance Preventative Medication(s):: Aspirin, Ticagrelor/P2Y12 inhibitor, Statin/lipid and Beta [place] H/O mental health issues: depression, anxiety, or addiction?: No Doesn?t believe in the benefits of treatment?: No Believes medications are unnecessary or harmful?: No Has a concern about medication side effects?: No Expresses concern over the cost of medications?: No Outcomes/Goals: Verbalizes medications,desired effect & common side effects @ DC, Pt self-reports following medication regimen, Keeps card in wallet w/medications listed by DC and Other additional outcome/goals: Interventions/plans: Instruct on medication effects & side effects, Review medication list w/patient every two weeks, Instruct importance of taking meds as ordered & assist problem solving and Other additional 30-day Reassessments:: Met Tobacco Use Tobacco Use: Non-smoker 30-day Reassessments:: Met Reassessment Notes & Comments:: Hypertension Hypertension Diagnosis:: Hypertension ICD-10 I10 Resting Blood Pressure:: 136/62 [employer] Hypertension Guidelines Peak Exercise Blood Pressure:: 140/70 Outcomes/Goals: Able to verbalize/achieve optimal blood pressure <130/80, Incorporates diet changes & exercise for blood pressure control by DC and Other additional outcomes/goals Interventions/plan: Instruct on optimal blood pressure, hypertension & medications, Instruct on effects of sodium, alcohol, stress, exercise &hypertension and Other additional plan/interventions 30 day Reassessments:: Met Reassessment Notes & Comments:: Tobacco Cessation Referral Smoking Cessation Referral:: No Individual Education/Counseling:: No Education Schedule Given:: Yes Core - 60-Day Assessment Visit Date of Eval: 08/28/22 Session #:: 34 Medication Compliance Preventative Medication(s):: Aspirin, Ticagrelor/P2Y12 inhibitor, Statin/lipid and Beta warren H/O mental health issues: depression, anxiety, or addiction?: No Doesn?t believe in the benefits of treatment?: No Believes medications are unnecessary or harmful?: No Has a concern about medication side effects?: No Expresses concern over the cost of medications?: No Outcomes/Goals: Verbalizes medications,desired effect & common side effects @ DC, Pt self-reports following medication regimen, Keeps card in wallet w/medications listed by DC and Other additional outcome/goals: Interventions/plans: Instruct on medication effects & side effects, Review medication list w/patient every two weeks, Instruct importance of taking meds as ordered & assist problem solving and Other additional 30-day Reassessments:: Met Tobacco Use Tobacco Use: Non-smoker 30-day Reassessments:: Met Reassessment Notes & Comments:: Hypertension Hypertension Diagnosis:: Hypertension ICD-10 I10 Resting Blood Pressure:: 136/62 [employer] Hypertension Guidelines Peak Exercise Blood Pressure:: 140/70 Outcomes/Goals: Able to verbalize/achieve optimal blood pressure <130/80, Incorporates diet changes & exercise for blood pressure control by DC and Other additional outcomes/goals Interventions/plan: Instruct on optimal blood pressure, hypertension & medications, Instruct on effects of sodium, alcohol, stress, exercise &hypertension and Other additional plan/interventions 30 day Reassessments:: Met Reassessment Notes & Comments:: Tobacco Cessation Referral Smoking Cessation Referral:: No Individual Education/Counseling:: No Education Schedule Given:: Yes Core - 90 Day Assessment Visit Date of Eval: 08/28/22 Session #:: 34 Medication Compliance Preventative Medication(s):: Aspirin, Ticagrelor/P2Y12 inhibitor, Statin/lipid and Beta warren H/O mental health issues: depression, anxiety, or addiction?: No Doesn?t believe in the benefits of treatment?: No Believes medications are unnecessary or harmful?: No Has a concern about medication side effects?: No Expresses concern over the cost of medications?: No Outcomes/Goals: Verbalizes medications,desired effect & common side effects @ DC, Pt self-reports following medication regimen, Keeps card in wallet w/medications listed by DC and Other additional outcome/goals: Interventions/plans: Instruct on medication effects & side effects, Review medication list w/patient every two weeks, Instruct importance of taking meds as ordered & assist problem solving and Other additional 30-day Reassessments:: Met Tobacco Use Tobacco Use: Non-smoker 30-day Reassessments:: Met Reassessment Notes & Comments:: Hypertension Hypertension Diagnosis:: Hypertension ICD-10 I10 Resting Blood Pressure:: 136/62 [employer] Hypertension Guidelines Peak Exercise Blood Pressure:: 140/70 Outcomes/Goals: Able to verbalize/achieve optimal blood pressure <130/80, Incorporates diet changes & exercise for blood pressure control by DC and Other additional outcomes/goals Interventions/plan: Instruct on optimal blood pressure, hypertension & medications, Instruct on effects of sodium, alcohol, stress, exercise &hypertension and Other additional plan/interventions 30 day Reassessments:: Met Reassessment Notes & Comments:: Tobacco Cessation Referral Smoking Cessation Referral:: No Individual Education/Counseling:: No Education Schedule Given:: Yes Core - Final Assessment Visit Date of Eval: 08/28/22 Session #:: 34 Medication Compliance Preventative Medication(s):: Aspirin, Ticagrelor/P2Y12 inhibitor, Statin/lipid and Beta warren H/O mental health issues: depression, anxiety, or addiction?: No Doesn?t believe in the benefits of treatment?: No Believes medications are unnecessary or harmful?: No Has a concern about medication side effects?: No Expresses concern over the cost of medications?: No Outcomes/Goals: Verbalizes medications,desired effect & common side effects @ DC, Pt self-reports following medication regimen, Keeps card in wallet w/medications listed by DC and Other additional outcome/goals: Interventions/plans: Instruct on medication effects & side effects, Review medication list w/patient every two weeks, Instruct importance of taking meds as ordered & assist problem solving and Other additional 30-day Reassessments:: Met Tobacco Use Tobacco Use: Non-smoker 30-day Reassessments:: Met Reassessment Notes & Comments:: Hypertension Hypertension Diagnosis:: Hypertension ICD-10 I10 Resting Blood Pressure:: 136/62 [employer] Hypertension Guidelines Peak Exercise Blood Pressure:: 140/70 Outcomes/Goals: Able to verbalize/achieve optimal blood pressure <130/80, Incorporates diet changes & exercise for blood pressure control by DC and Other additional outcomes/goals Interventions/plan: Instruct on optimal blood pressure, hypertension & medications, Instruct on effects of sodium, alcohol, stress, exercise &hypertension and Other additional plan/interventions 30 day Reassessments:: Progressing Reassessment Notes & Comments:: Tobacco Cessation Referral Smoking Cessation Referral:: No Individual Education/Counseling:: No Education Schedule Given:: Yes Psychosocial - Initial Assess VIsit Date of Eval: 08/28/22 Session #:: 34 History of previous Mental disease:: No Target Goals Target Goals Psychosocial - 30-Day Assess VIsit Date of Eval: 08/28/22 Session #:: 34 History of previous Mental disease:: No Target Goals Target Goals Psychosocial - 60-Day Assess VIsit Date of Eval: 08/28/22 Session #:: 34 History of previous Mental disease:: No Target Goals Target Goals Psychosocial - 90-Day Assess VIsit Date of Eval: 08/28/22 Session #:: 34 History of previous Mental disease:: No Target Goals Target Goals Psychosocial - Final Assessmen VIsit Date of Eval: 08/28/22 Session #:: 34 History of previous Mental disease:: No Target Goals Target Goals Patient Health Questionnaire PHQ-9 Screening 90-Day Re-eval Assessment: 1. Little interest or pleasure in doing things: Several days 2. Feeling down, depressed, or hopeless: Not at all 3. Trouble falling or staying asleep, or sleeping too much: Nearly every day 4. Feeling tired or having little energy: Nearly every day 5. Poor appetite or overeating: More than half the days 6. Feeling bad about yourself -- or that you are a failure or have let yourself or your family down: Several days 7. Trouble concentrating on things, such as reading the newspaper or watching television: Several days 8. Moving or speaking so slowly that other people could have noticed. Or the opposite - being so fidgety or restless that you have been moving around a lot more than usual: More than half the days 9. Thoughts that you would be better off , or of hurting yourself in some way: Not at all How difficult have these problems made it for you to do your work, take care of things at home, or get along with other people?: Not difficult at all Total Score: 13 Self-Efficacy 6-Item Scale 90-Day Re-eval Assessment: We would like to know how confident you are in doing certain activities. Please select your confidence level for: Fatigue Select Number: 5 Physical Discomfort or Pain Select Number: 6 Emotional Distress Select Number: 9 Other Symptoms or Health Problems Select Number: 9 Different Tasks and Activities Select Number: 9 Medication Select Number: 9 Total Score:: 7 Nutrition Survey Nutrition Survey Instructions Scoring Instructions
[2022-08-28 11:46] VITALS: BP 136/62
[2022-08-28 11:52] VITALS: BP 136/62; BP 140/70
[2022-08-28 11:53] VITALS: BMI 29.8
== END 2022-08-30 23:59 ==
LOC: CR 13:00
PROVIDERS: PCP Family Medicine; Referring Provider Internal Medicine Cardiovascular Disease; Visit Provider Internal Medicine Cardiovascular Disease
DX: I25.10 Atherosclerotic heart disease of native coronary artery without angina pectoris (principal); I21.3 ST elevation (STEMI) myocardial infarction of unspecified site; Z95.5 Presence of coronary angioplasty implant and graft
CPT/HCPCS: 93798

== ENCOUNTER 2022-09-02 13:09 | Outpatient (RCR) | payer MEDICARE, SELFPAY ==
[2022-08-28 11:53] VITALS: BMI 29.8
== END 2022-09-30 23:59 ==
LOC: CR 13:09
PROVIDERS: PCP Family Medicine; Referring Provider Internal Medicine Cardiovascular Disease; Visit Provider Internal Medicine Cardiovascular Disease
DX: Z95.5 Presence of coronary angioplasty implant and graft (principal); I25.5 Ischemic cardiomyopathy; I5A Non-ischemic myocardial injury (non-traumatic)
CPT/HCPCS: 93798

== ENCOUNTER → 2022-10-03 | Outpatient (CLI) | payer MEDICARE, SELFPAY ==
[2022-08-28 11:53] VITALS: BMI 29.8
[2022-10-03 16:31] LABS: Absolute Lymphocyte Count 1.23 X10^3/uL (0.83-4.51); Basophil# 0.03 X10^3/uL; Basophil% 0.6 % (0-1); Hematocrit 37.6 % (37-47); Hemoglobin 12.3 g/dL (12.0-15.0); Lymphocyte # 1.23 X10^3/ul (0.83-4.51); Lymphocyte % 24.9 % (19-41); Mean Corp Hgb Conc 32.7 g/dL (32-36); Mean Corpuscular Hgb 30.5 pg (27.0-32.0); Mean Corpuscular Volume 93.3 fL (81-99); Mean Platelet Vol. 10.7 fl (6.2-12.0); Monocyte# 0.53 X10^3/uL; Monocyte% 10.8 % (0-10); NRBC Flagged by Analyzer 0 % (0-5); Neutrophil # 3.03 X10^3/uL (2.7-7.7); Neutrophil % 61.5 % (47-70); Platelet Count 249 K/mm3 (150-450); RBC Distribution Width CV 13.1 % (11.6-14.6); RBC Distribution Width SD 44.8 fl (35.1-43.9); Red Blood Count 4.03 M/mm3 (4.2-5.4); White Blood Count 4.9 K/mm3 (4.4-11.0)
[2022-10-03 17:00] LABS: Anion Gap 5 (5-15); BUN 25 mg/dL (7-18); BUN/Creat Ratio 18.5 RATIO (10-20); Calcium,Total 9.4 mg/dL (8.5-10.1); Chloride 107 mmol/L (98-107); Creatinine, Serum 1.35 mg/dL (0.55-1.02); EST Glomerular Filtration Rate 40 mL/min (>60); Est Glom Filt Rate - Afr Amer 49 mL/min (>60); Glucose 104 mg/dL (74-106); Potassium 4.8 mmol/L (3.5-5.1); Sodium Level 139 mmol/L (136-145); Thyroid Stim Hormone (TSH) 7.49 uIU/mL (0.358-3.74)
== END | disposition home or self-care (01) ==
LOC: LAB 14:26
PROVIDERS: PCP Family Medicine; Referring Provider Physician Assistant Medical; Visit Provider Physician Assistant Medical
DX: E78.5 Hyperlipidemia, unspecified (principal); I25.5 Ischemic cardiomyopathy; Z95.5 Presence of coronary angioplasty implant and graft
CPT/HCPCS: 36415; 80048; 84443; 85025

== ENCOUNTER → 2022-11-20 | Outpatient (CLI) | payer MEDICARE, SELFPAY ==
[2022-08-28 11:53] VITALS: BMI 29.8
[2022-11-20 08:44] LABS: Hematocrit 38.9 % (37-47); Hemoglobin 12.2 g/dL (12.0-15.0); Mean Corp Hgb Conc 31.4 g/dL (32-36); Mean Corpuscular Volume 95.8 fL (81-99); Mean Platelet Vol. 10.6 fl (6.2-12.0); Platelet Count 268 K/mm3 (150-450); RBC Distribution Width SD 49.6 fl (35.1-43.9); Red Blood Count 4.06 M/mm3 (4.2-5.4); White Blood Count 4.9 K/mm3 (4.4-11.0)
[2022-11-20 09:17] LABS: ALB/GLOB Ratio 1.1 RATIO (0.9-2.4); AST(SGOT) 14 U/L (15-37); Alanine Aminotransfer ALT/SGPT 29 U/L (13-56); Albumin, Serum 3.9 g/dL (3.2-5.0); Alkaline Phosphatase 66 U/L (45-117); Anion Gap 4 (5-15); BUN 33 mg/dL (7-18); Calcium,Total 9.3 mg/dL (8.5-10.1); Chloride 108 mmol/L (98-107); Cholesterol 197 mg/dL (200); EST Glomerular Filtration Rate 36 mL/min (>60); Est Glom Filt Rate - Afr Amer 43 mL/min (>60); Free T3 2.2 pg/mL (2.18-3.98); Globulin 3.5 g/dL (2.2-4.2); Glucose 105 mg/dL (74-106); High Density Lipoprotein 51 mg/dL; Potassium 4.2 mmol/L (3.5-5.1); Protein, Total 7.4 g/dL (6.4-8.2); Sodium Level 138 mmol/L (136-145); T4 Free Direct 0.93 ng/dL (0.76-1.46); Triglycerides 150 mg/dL; Very Low Density Lipoprotein 30 mg/dL (5-40)
== END | disposition home or self-care (01) ==
LOC: LAB 07:42
PROVIDERS: Referring Provider Physician Assistant Medical; Visit Provider Physician Assistant Medical
DX: I10 Essential (primary) hypertension (principal); E78.5 Hyperlipidemia, unspecified; I25.10 Atherosclerotic heart disease of native coronary artery without angina pectoris; R94.4 Abnormal results of kidney function studies
CPT/HCPCS: 36415; 80053; 80061; 84439; 84443; 84481; 85027

== ENCOUNTER → 2022-11-26 | Outpatient (CLI) | payer MEDICARE, SELFPAY ==
[2022-08-28 11:53] VITALS: BMI 29.8
--- NOTE | 2022-11-26 14:48 | BI_ITS ---
MAMMOGRAPHY - BILATERAL SCREENING REASON FOR EXAM: Female, 77 years old. Routine annual screening examination. PERTINENT HISTORY: Non-contributory. TECHNIQUE: Digital bilateral breast adin (3D mammographic acquisition) in the CC and MLO projections. 2-D mediolateral oblique (MLO) and craniocaudad (CC) views of both breasts were obtained. CAD: Full Field Digital Mammography with Computer Added Detection was performed. COMPARISON: No comparison mammograms available at this time. If any prior films become available, an addendum to this report can be generated. FINDINGS: Breast Composition: There are scattered areas of fibroglandular density. There are no dominant masses or suspicious calcifications. No other significant abnormalities are identified. BI/SCRN MAMM (CAD)W/ADIN BILAT IMPRESSION: Negative screening mammogram. Yearly followup mammogram recommended. (A) ASSESSMENT CATEGORY: BIRADS Category 1: Negative. A letter regarding these results will be sent to the patient by the facility within 30 days. Approximately 10% of breast cancers are not detected by mammography. A normal mammogram should not delay biopsy of a clinically suspicious abnormality. [id number] Electronically Signed: Tae Bruce MD at 8:54 EDT ,
--- NOTE | 2022-11-26 14:50 | BD_ITS ---
STUDY: DUAL ENERGY X-RAY ABSORPTIOMETRY / DXA REASON FOR EXAM: Female, 77 years old. Z780 TECHNIQUE: Bone Mineral Density (BMD) measurements of lumbar spine and bilateral hips were obtained. COMPARISON: None. FINDINGS: Lumbar Spine (L1-L4): g/cm2 (0.852) / T-score (-1.8) / Z-score (0.9) Findings are suggestive of osteopenia with a moderate fracture risk. Left Femur Total: g/cm2 (0.877) / T-score (-0.5) / Z-score (1.5) Left Femoral Neck: g/cm2 (0.756) / T-score (-0.8) / Z-score (1.5) Right Femur Total: g/cm2 (0.889) / T-score (-0.4) / Z-score (1.6) Right Femoral Neck: g/cm2 (0.760) / T-score (-0.8) / Z-score (1.5) BD/Dexa Bone Density Study IMPRESSION: The patient is considered osteopenic as outlined below according to World Michael Organization (WHO) criteria with a moderate fracture risk. Reference Information: The T-score is the number of standard deviations above or below the standard which is normal for young adults at their peak bone mineral density. The World Health Organization (WHO) interprets the T-scores as follows: Above -1 Normal bone density Between -1 and -2.5 Osteopenia Equal to / or below -2.5 Osteoporosis As a practical clinical guideline, osteopenia may be graded as follows: Mild -1 through -1.5 Moderate -1.6 through -2.0 Severe -2.1 through -2.4 The Z-score is the number of standard deviations above or below age-matched controls. A Z-score of less than -1.5 would be considered abnormal. References: 1. NIH Osteoporosis and Related Bone Diseases www osteo.org 2. International Society for Clinical Densitometry www iscd.org 3. National Osteoporosis Foundation www nof.org Electronically Signed: Tae Bruce MD at 15:28 EDT ,
== END | disposition home or self-care (01) ==
LOC: OPBD 14:45
DX: Z12.31 Encounter for screening mammogram for malignant neoplasm of breast (principal); Z78.0 Asymptomatic menopausal state
CPT/HCPCS: 77063; 77067; 77080

== ENCOUNTER → 2022-12-27 | Outpatient (CLI) | payer MEDICARE, SELFPAY ==
[2022-08-28 11:53] VITALS: BMI 29.8
[2022-12-27 10:53] LABS: Free T3 1.9 pg/mL (2.18-3.98); T4 Free Direct 1.01 ng/dL (0.76-1.46); Thyroid Stim Hormone (TSH) 6.59 uIU/mL (0.358-3.74)
== END | disposition home or self-care (01) ==
LOC: LAB 09:55
PROVIDERS: Referring Provider Nurse Practitioner Gerontology; Visit Provider Nurse Practitioner Gerontology
DX: Z79.899 Other long term (current) drug therapy (principal)
CPT/HCPCS: 36415; 84439; 84443; 84481

== ENCOUNTER → 2023-03-14 | Outpatient (CLI) | payer MEDICARE, SELFPAY ==
[2022-08-28 11:53] VITALS: BMI 29.8
--- OUTSIDE RECORDS SUMMARY | 2023-03-14 11:18 | XMS RPT_ITS | CCD ---
Author Name Unknown Address [address] [place] [address] Organization [facility] Care Team Providers Care Material Stockkeeper Yard Name Role Phone Roof LOCKER ROOM SUPERVISOR, Osbaldo Radford Unavailable NGHIA RODRIGUEZ Unavailable Unavailable LEXIE HEART Unavailable Unavailable Erica CARLSON, Hannah Tsai Unavailable Tamra Johnston Unavailable Unavailable Allergies Allergy Classification Reported Allergen(s) Allergy Type Date of Onset Reaction(s) Facility (3 sources) atorvastatin drug allergy 05-27-2016 myalgias [facility] Work Phone: (3 sources) rosuvastatin drug allergy 05-27-2016 myalgias [facility] Work Phone: Medications Completed/Discontinued Medications Medication Drug Class(es) Dates Sig (Normalized) Sig (Original) amLODIPine 5 mg oral tablet (3 sources) Dihydropyridine Calcium Channel Sahra Start: 05-31-2016 take 1 tablet by mouth once daily NORVASC 5 MG TABS One tablet by mouth daily AMLODIPINE BESYLATE [id number] Mitch Lebron MD aspirin 325 mg oral tablet (6 sources) Nonsteroidal Anti-inflammatory Drug Start: 05-27-2016 take 0.5 tablet by mouth once daily ASPIRIN 325 MG TABS 1/2 tablet by mouth daily ASPIRIN [id number] Mitch Lebron MD Problems Active Problems Problem Classification Problem Date Documented Date Episodic/Chronic Coronary atherosclerosis and other heart disease (3 sources) Atherosclerotic heart disease of [place] coronary artery without angina pectoris; Translations: [Atherosclerotic heart disease of [place] coronary artery without angina pectoris] Onset: 05-27-2016 05-27-2016 Chronic Essential hypertension (3 sources) Hypertensive disorder; Translations: [Essential (primary) hypertension] Onset: 05-27-2016 05-27-2016 Chronic Other and ill-defined heart disease (3 sources) Left ventricular systolic dysfunction; Translations: [Heart disease, unspecified] Onset: 05-27-2016 05-27-2016 Chronic Past or Other Problems Problem Classification Problem Date Documented Da te Episodic/Chronic Malaise and fatigue (1 source) Fatigue; Translations: [Other fatigue] Onset: 12-12-2016 12-12-2016 Episodic Nonspecific chest pain (3 sources) Chest pain; Translations: [Other chest pain] Onset: 05-29-2016 05-29-2016 Episodic Other nutritional; endocrine; and metabolic disorders (1 source) Body mass index (BMI) 29.0-29.9, adult; Translations: [Body mass index (BMI) 29.0-29.9, adult] Onset: 12-12-2016 12-12-2016 Episodic Results Test Name Value Interpretation Reference Range Facil ity Vital Signs Date Time Vital Sign Value Performing Clinician Faci lity 12-12-2016 07:42-0400 BMI (Body Mass Index) 29.76 kg/m2 Tamra Johnston [facility] Work Phone: 12-12-2016 07:42-0400 BP Diastolic 82 mm[Hg] Kashiffrancine [facility] Work Phone: 12-12-2016 07:42-0400 BP Systolic 122 mm[Hg] Tatiiraj [facility] Work Phone: 12-12-2016 07:42-0400 Height 160.02 cm Tamra Vickie [facility] Work Phone: 12-12-2016 07:42-0400 Pulse (Heart Rate) 80 /min Tamra Vickie [facility] Work Phone: 12-12-2016 07:42-0400 Respiratory Rate 20 /min Tamra Johnston [facility] Work Phone: 12-12-2016 07:42-0400 Weight 76.2 kg Tatiiraj [facility] Work Phone: 05-29-2016 13:49-0400 Heart rate 84 /min Hannah Maldonado RN [facility] Work Phone: 05-29-2016 13:06-0400 BMI (Body Mass Index) 29.93 kg/m2 Osbaldo Abiola LOCKER ROOM SUPERVISOR [facility] Work Phone: 05-29-2016 13:06-0400 BP Diastolic 70 mm[Hg] Osbaldo Culver LOCKER ROOM SUPERVISOR [facility] Work Phone: 05-29-2016 13:06-0400 BP Systolic 124 mm[Hg] Osbaldo Abiola LOCKER ROOM SUPERVISOR [facility] Work Phone: 05-29-2016 13:06-0400 Height 160.02 cm Osbaldo Culver LOCKER ROOM SUPERVISOR [facility] Work Phone: 05-29-2016 13:06-0400 Pulse (Heart Rate) 88 /min Osbaldo Culver LOCKER ROOM SUPERVISOR [facility] Work Phone: 05-29-2016 13:06-0400 Respiratory Rate 20 /min Osbaldo Abiola LOCKER ROOM SUPERVISOR [facility] Work Phone: 05-29-2016 13:06-0400 Weight 76.66 kg Osbaldo Culver LOCKER ROOM SUPERVISOR [facility] Work Phone: Encounters Encounter Date Encounter Type Care Provider Facility Start: 07-29-2017 End: 07-30-2017 [facility] Janice ENDICOTT Facility:[facility] Procedures Date Procedure Procedure Detail Performing Clinician Start: 12-12-2016 End: 12-12-2016 COMMERCIAL MANAGEMENT ACCOUNTANT Osbaldo Radford Abiola LOCKER ROOM SUPERVISOR Work Phone: Start: 12-12-2016 End: 12-12-2016 Follow Up Appt 6 months Osbaldo Culver NP Work Phone: Start: 12-12-2016 End: 12-12-2016 Dietary management education, guidance, and counseling Tamra Johnston Start: 05-29-2016 End: 05-30-2016 *ANNELISE Lebron MD Start: 05-29-2016 End: 05-29-2016 CBC W Auto Differential panel - Blood Mitch Lebron MD Start: 05-29-2016 End: 05-30-2016 *ANNELISE Lebron MD Start: 05-29-2016 End: 05-29-2016 CBC W Auto Differential panel - Blood Mitch Lebron MD Plan of Treatment Date Care Activity Detail Author Start: 06-12-2017 End: 06-12-2017 Appointment Appointment [facility] Work Phone: Start: 12-12-2016 End: 12-12-2016 COMMERCIAL MANAGEMENT ACCOUNTANT COMMERCIAL MANAGEMENT ACCOUNTANT [facility] Work Phone: Start: 12-12-2016 End: 12-12-2016 Follow Up Appt 6 months Follow Up Appt 6 months [facility] Work Phone: Start: 12-12-2016 End: 12-12-2016 Appointment Appointment [facility] Work Phone: Start: 11-19-2016 End: 11-19-2016 Appointment Appointment [facility] Work Phone: Start: 05-29-2016 End: 05-30-2016 *BMP *BMP [facility] Work Phone: Start: 05-29-2016 End: 05-29-2016 CBC W Auto Differential panel - Blood *CBC without Diff [facility] Work Phone: Start: 05-29-2016 End: 05-29-2016 Chest x-ray X-Ray, Chest, PA & Lateral [facility] Work Phone: Start: 05-29-2016 End: 05-29-2016 Ecg routine ecg w/least 12 lds w/i&r EKG (In office) [facility] Work Phone: Start: 05-29-2016 End: 05-29-2016 Follow Up Appt 6 months Follow Up Appt 6 months [facility] Work Phone: Start: 05-29-2016 End: 05-29-2016 Left Heart Cath Left Heart Cath [facility] Work Phone: Start: 05-29-2016 End: 05-29-2016 MMM MMM [facility] Work Phone: Start: 05-29-2016 End: 05-30-2016 *BMP *BMP [facility] Work Phone: Start: 05-29-2016 End: 05-29-2016 CBC W Auto Differential panel - Blood *CBC without Diff [facility] Work Phone: Start: 05-29-2016 End: 05-29-2016 Chest x-ray X-Ray, Chest, PA & Lateral [facility] Work Phone: Start: 05-29-2016 End: 05-29-2016 Electrocardiogram, complete EKG (In office) [facility] Work Phone: Start: 05-29-2016 End: 05-29-2016 Follow Up Appt 6 months Follow Up Appt 6 months [facility] Work Phone: Start: 05-29-2016 End: 05-29-2016 Left Heart Cath Left Heart Cath [facility] Work Phone: Start: 05-29-2016 End: 05-29-2016 MMM MMM [facility] Work Phone: Payers Date Payer Category Payer Medicare [id number] Summary Purpose Family History No Family History Records Found Advance Directives No Advanced Directives Records Found Additional Source Comments INFORMATION SOURCE (unrecogn ized section and content) FOR RECORDS PERTAINING TO PATIENTS WHO ARE OR HAVE BEEN ENROLLED IN A CHEMICAL DEPENDENCY/SUBSTANCEABUSE PROGRAM, SOME INFORMATION MAY BE OMITTED. This clinical summary was aggregated from multiple sources. Caution should be exercised in using it in the provision of clinical care. This summary normalizes information from multiple sources, and as a consequence, information in this document may materially change the coding, format and clinical context of patient data. In addition, data may be omitted in some cases. CLINICAL DECISIONS SHOULD BE BASED ON THE PRIMARY CLINICAL RECORDS. [employer] provides no warranty or guarantee of the accuracy or completeness of information in this document.
[2023-03-14 12:04] LABS: ALB/GLOB Ratio 1.1 RATIO (0.9-2.4); AST(SGOT) 13 U/L (15-37); Alanine Aminotransfer ALT/SGPT 21 U/L (13-56); Albumin, Serum 3.7 g/dL (3.2-5.0); Alkaline Phosphatase 61 U/L (45-117); Anion Gap 5 (5-15); BUN 35 mg/dL (7-18); BUN/Creat Ratio 22.3 RATIO (10-20); Calcium,Total 9.3 mg/dL (8.5-10.1); Chloride 112 mmol/L (98-107); Creatinine, Serum 1.57 mg/dL (0.55-1.02); EST Glomerular Filtration Rate 34 mL/min (>60); Est Glom Filt Rate - Afr Amer 41 mL/min (>60); Free T3 1.5 pg/mL (2.18-3.98); Globulin 3.3 g/dL (2.2-4.2); Glucose 93 mg/dL (74-106); Potassium 4.9 mmol/L (3.5-5.1); Sodium Level 141 mmol/L (136-145); T4 Free Direct 1.16 ng/dL (0.76-1.46); Thyroid Stim Hormone (TSH) 4.21 uIU/mL (0.358-3.74)
== END | disposition home or self-care (01) ==
LOC: LAB 10:51
DX: R94.4 Abnormal results of kidney function studies (principal); E03.9 Hypothyroidism, unspecified
CPT/HCPCS: 36415; 80053; 84439; 84443; 84481

== ENCOUNTER → 2023-05-16 | Outpatient (CLI) | payer MEDICARE, SELFPAY ==
[2022-08-28 11:53] VITALS: BMI 29.8
--- NOTE | 2023-05-16 13:51 | ECHOLC_ITS ---
Version 2 Reason For Study: CHF Procedure This was a limited 2D transthoracic echocardiogram. Contrast injection was performed. Exam performed in department. Left Ventricle Normal LV size. Mild concentric left ventricular hypertrophy. The left ventricular ejection fraction is 35 %. Moderate segmental systolic dysfunction (see wall motion). Infero-Basal: Akinetic. Septal [place] : Akinetic. Mid-Posterior: Akinetic. The rest of the wall segments are hypokinetic. Mid- anteroseptal : Normal. Basal inferoseptal: Normal. Right Ventricle Normal RV size. Normal systolic function. Atria The left atrium is mildly enlarged. Normal right atrium. Mitral Valve Normal mitral valve. Mild-Moderate (1-2+) eccentric mitral valve insufficiency. Tricuspid Valve Normal tricuspid valve. Aortic Valve Trisinus/trileaflet aortic valve. Mild focal aortic valve calcification. Mild (1+) aortic valve insufficiency. Pulmonic Valve Normal pulmonic valve. Great Vessels Normal aortic root. The pulmonary artery is normal size. Normal inferior vena cava. Pericardium/Pleural No pericardial effusion. Medication 22 gauge I.V. with prn adaptor inserted into left arm. Diluted definity 1.5ml given slow IV push to enhance endocardial definition. MMode/2D Measurements & Calculations LVIDd: 5.8 cm IVSd: 1.4 cm LA dimension: 4.2 cm LVIDs: 5.4 cm LVPWd: 1.2 cm FS: 6.6 % LVAd ap4: 36.3 cm2 SV(MOD-sp4): 25.2 ml SV(sp4-el): 23.1 ml LVLd ap4: 7.0 cm EDV(MOD-sp4): 150.6 ml EDV(sp4-el): 160.0 ml LVAs ap4: 32.4 cm2 LVLs ap4: 6.5 cm ESV(MOD-sp4): 125.4 ml ESV(sp4-el): 136.9 ml EF(MOD-sp4): 16.7 % EF(sp4-el): 14.4 % Doppler Measurements & Calculations AI max selina: 389.2 cm/sec MR max selina: 541.0 cm/sec AI max P.6 mmHg MR max P.1 mmHg AI dec slope: 227.1 cm/sec2 AI P1/2t: 502.0 msec ECHO/Echo Limited w/Contrast Interpretation Summary This was a limited 2D transthoracic echocardiogram. Normal LV size. The left ventricular ejection fraction is 35 %. Moderate segmental systolic dysfunction (see wall motion). Mild concentric left ventricular hypertrophy. The left atrium is mildly enlarged. Mild (1+) aortic valve insufficiency. Contrast injection was performed. Ordering Physician: Hannah Disla Referring Physician: Hannah Disla Performed By: Saad Howard RCS
--- OUTSIDE RECORDS SUMMARY | 2023-05-16 18:38 | XMS RPT_ITS | CCD ---
Author Name Unknown Address [address] [place] [address] Organization [facility] Care Team Providers Care Corsage Maker Name Role Phone Roof BOAT FINISHER, Osbaldo Radford Unavailable NGHIA RODRIGUEZ Unavailable Unavailable LEXIE HEART Unavailable Unavailable Erica CARLSON, Hannah Tsai Unavailable [phone] Tamra Johnston Unavailable Unavailable Allergies Allergy Classification Reported Allergen(s) Allergy Type Date of Onset Reaction(s) Facility (3 sources) atorvastatin drug allergy 05-27-2016 myalgias [facility] Work Phone: (3 sources) rosuvastatin drug allergy 05-27-2016 myalgias [facility] Work Phone: Medications Completed/Discontinued Medications Medication Drug Class(es) Dates Sig (Normalized) Sig (Original) amLODIPine 5 mg oral tablet (3 sources) Dihydropyridine Calcium Channel Sahra Start: 05-31-2016 take 1 tablet by mouth once daily NORVASC 5 MG TABS One tablet by mouth daily AMLODIPINE BESYLATE [id number] Mitch Lebron MD aspirin 325 mg oral tablet (6 sources) Nonsteroidal Anti-inflammatory Drug Start: 05-27-2016 take 0.5 tablet by mouth once daily ASPIRIN 325 MG TABS 1/2 tablet by mouth daily ASPIRIN [id number] Mitch Lebron MD Problems Active Problems Problem Classification Problem Date Documented Date Episodic/Chronic Coronary atherosclerosis and other heart disease (3 sources) Atherosclerotic heart disease of [place] coronary artery without angina pectoris; Translations: [Atherosclerotic heart disease of [place] coronary artery without angina pectoris] Onset: 05-27-2016 [...] Heart rate 84 /min Hannah Maldonado RN [facility] Work Phone: 05-29-2016 13:06-0400 BMI (Body Mass Index) 29.93 kg/m2 Osbaldo Abiola BOAT FINISHER [facility] Work Phone: 05-29-2016 13:06-0400 BP Diastolic 70 mm[Hg] Osbaldo Culver BOAT FINISHER [facility] Work Phone: 05-29-2016 13:06-0400 BP Systolic 124 mm[Hg] Osbaldo Abiola BOAT FINISHER [facility] Work Phone: 05-29-2016 13:06-0400 Height 160.02 cm Osbaldo Culver BOAT FINISHER [facility] Work Phone: 05-29-2016 13:06-0400 Pulse (Heart Rate) 88 /min Osbaldo Culver BOAT FINISHER [facility] Work Phone: 05-29-2016 13:06-0400 Respiratory Rate 20 /min Osbaldo Abiola BOAT FINISHER [facility] Work Phone: 05-29-2016 13:06-0400 Weight 76.66 kg Osbaldo Culver BOAT FINISHER [facility] Work Phone: Encounters Encounter Date Encounter Type Care Provider Facility Start: 07-29-2017 End: 07-30-2017 [facility] Janice [place] Facility:[facility] Procedures Date Procedure Procedure Detail Performing Clinician Start: 12-12-2016 End: 12-12-2016 SLICING MACHINE FEEDER Osbaldo Radford Abiola [employer] [facility] Work Phone: Start: 12-12-2016 End: 12-12-2016 Follow [...] Author Start: 06-12-2017 End: 06-12-2017 Appointment Appointment [facility] Work Phone: Start: 12-12-2016 End: 12-12-2016 SLICING MACHINE FEEDER SLICING MACHINE FEEDER [facility] Work Phone: Start: 12-12-2016 End: 12-12-2016 Follow Up Appt 6 months Follow Up Appt 6 months [facility] Work Phone: Start: 12-12-2016 End: 12-12-2016 Appointment Appointment [facility] Work Phone: Start: 11-19-2016 End: 11-19-2016 Appointment Appointment [facility] Work Phone: Start: 05-29-2016 End: 05-30-2016 *BMP *BMP [facility] Work Phone: Start: 05-29-2016 End: 05-29-2016 CBC W Auto Differential panel - Blood *CBC without Diff [facility] Work Phone: Start: 05-29-2016 End: 05-29-2016 Chest x-ray X-Ray, Chest, PA & Lateral [facility] Work Phone: Start: 05-29-2016 End: 05-29-2016 Ecg routine ecg w/least 12 lds w/i&r EKG (In office) [facility] Work Phone: Start: 05-29-2016 End: 05-29-2016 Follow Up Appt 6 months Follow Up Appt 6 months [facility] Work Phone: Start: 05-29-2016 End: 05-29-2016 Left Heart Cath Left Heart Cath [facility] Work Phone: Start: 05-29-2016 End: 05-29-2016 MMM MMM [facility] Work Phone: Start: 05-29-2016 End: 05-30-2016 *BMP *BMP [facility] Work Phone: Start: 05-29-2016 End: 05-29-2016 CBC W Auto Differential panel - Blood *CBC without Diff [facility] Work Phone: Start: 05-29-2016 End: 05-29-2016 Chest x-ray X-Ray, Chest, PA & Lateral [facility] Work Phone: Start: 05-29-2016 End: 05-29-2016 Electrocardiogram, complete EKG (In office) [facility] Work Phone: Start: 05-29-2016 End: 05-29-2016 Follow Up Appt 6 months Follow Up Appt 6 months [facility] Work Phone: Start: 05-29-2016 End: 05-29-2016 Left Heart Cath Left Heart Cath [facility] Work Phone: Start: 05-29-2016 End: 05-29-2016 MMM MMM [facility] Work Phone: Payers Date Payer Category Payer Medicare [id number] Summary Purpose Family History No Family History [...] BE BASED ON THE PRIMARY CLINICAL RECORDS. [employer] provides no warranty or guarantee of the accuracy or completeness of information in this document.
== END | disposition home or self-care (01) ==
PROVIDERS: Referring Provider Physician Assistant Medical; Visit Provider Physician Assistant Medical
DX: I25.5 Ischemic cardiomyopathy (principal)
CPT/HCPCS: 93308; Q9957; A4216; C8924